=== PATIENT | female | born 1955 | race Caucasian/White ===

== ENCOUNTER → 2016-09-28 | Outpatient (CLI) | payer OTHER ==
--- NOTE | 2016-09-29 10:23 | MM ---
Reason for exam: screening (asymptomatic). Last mammogram was performed 1 year and 1 month ago. Physical Findings: A clinical breast exam by your physician is recommended on an annual basis and results should be correlated with mammographic findings. MG Screening Mammo w CAD Bilateral CC and MLO view(s) were taken. Prior study comparison: September 09, 2015, bilateral MG screening mammo w CAD. August 04, 2014, bilateral MG screening mammo w CAD. There are scattered fibroglandular densities. No suspicious abnormality. No significant changes when compared with prior studies. ASSESSMENT: Negative, BI-RAD 1 RECOMMENDATION: Routine screening mammogram of both breasts in 1 year.
== END | disposition home or self-care (01) ==
LOC: RADMAMWWP 15:34
PROVIDERS: ATTEND Internal Medicine
DX: Z12.31 Encounter for screening mammogram for malignant neoplasm of breast (principal)

== ENCOUNTER → 2016-11-28 | Outpatient (CLI) | payer OTHER ==
--- NOTE | 2016-11-29 12:25 | P.ARTDOP ---
Arterial Doppler LOWER EXTREMITY ARTERIAL DOPPLER: DATE OF SERVICE: 11/28/2016 Reason for study: Bilateral calf claudication. Doppler waveforms: Multiphasic bilaterally throughout. Pulse volume recording: []. Pressure gradients: None. Ankle-brachial indices: Greater than 1 bilaterally. Toe pressures: 122 on the right, 124 on the left Impression: Normal study.
== END | disposition home or self-care (01) ==
LOC: RADUSWWP 08:48
PROVIDERS: ATTEND Internal Medicine
DX: I73.9 Peripheral vascular disease, unspecified (principal)
CPT/HCPCS: 93922

== ENCOUNTER → 2017-06-19 | Outpatient (CLI) | payer OTHER ==
--- NOTE | 2017-06-19 17:04 | CONS ---
CONSULTATION REASON FOR EVALUATION: Sleep apnea. 62-year-old female patient with known history of obstructive sleep apnea diagnosed back in 2013. At that time, the patient had an AHI of 52 and the patient was being treated with a CPAP pressure of 9 cm of water with excellent clinical response and compliance. Note that the patient was morbidly obese and she weighed approximately 342 pounds and over the years she has been successfully able to lose weight. Currently she is down to 219. Over the past 1-1/2 years the patient has quit using her CPAP thinking that she was much better and her symptoms of sleep apnea had improved. Never the less, no confirmatory sleep study was done to see if there is any residual obstructive sleep apnea. Recently during a trip to [place] the patient a hypoglycemic event, she was taken to the hospital and while being observed at sleep the patient was told to have oxygen desaturation. She is coming in due to concerns of a residual obstructive sleep apnea. She continues to snore and she feels tired although less compared to earlier. She is averaging around 5-6 hours of sleep at night. At times she is restless and she has chronic weakness in lower extremity related to spinal stenosis and footdrop. PAST MEDICAL HISTORY: 1. ROBIN. 2. Obesity. 3. Hypertension. 4. Hyperlipidemia. 5. Spinal stenosis. 6. History of foot drop. 7. Glaucoma. 8. Diabetes mellitus. 9. Obesity. SURGICAL HISTORY: Includes 1983, cholecystectomy 1989, hysterectomy 1990, sinus surgery in 1999 and hernia repair in 2010. DRUG ALLERGIES: To SULFA, BETA-BLOCKERS, METFORMIN AND BYETTA. She is also allergic to VICTOZA AND U500 INSULIN. OUTPATIENT MEDICATION LIST: Includes vitamin D 6000 units daily, Humalog 3 times a day 24 units, Lantus insulin 45 units daily, baby aspirin 81 mg p.o. daily, Norvasc 5 mg p.o. daily, Lipitor 80 mg p.o. daily, Cymbalta 120 mg p.o. daily and Xalatan eye drops. SOCIAL HISTORY: The patient is a nonsmoker. No history of alcohol. No history of IV drugs. FAMILY HISTORY: Noncontributory and is negative for sleep apnea. REVIEW OF SYSTEMS: She is reporting some excessive fatigue and sleepiness. She is still snoring as she was told to snore. She wakes up tired in the morning. She is having some problems with attention, memory and concentration. 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 No sleep paralysis. No hallucinations. No cataplexy. No report palpitation, heartburn. No reported chest pain at nighttime. No report of shortness of breath. No sleep walking or sleep talking. No claustrophobia, no sexual dysfunction. No history of depression. PHYSICAL EXAMINATION: BP is 147/77, pulse 96, respirations 16, temperature 97, saturation 98% on room air. Weight is 219, height is 5 feet 2 inches and neck size 15 inches. GENERAL APPEARANCE: Calm, comfortable. No acute distress. Head is atraumatic, normocephalic. Neck is short. Crowding of the posterior pharynx. Mallampati class IV. LUNGS: Clear to auscultation. HEART: Sounds are regular rate and rhythm. Normal S1, S2. No S3. No murmurs. ABDOMEN: Soft, nontender. No organomegaly. EXTREMITIES: No edema. No cyanosis or clubbing. NEUROLOGIC: The patient has weakness in lower extremities and difficult with mobility and gait and foot drop. SKIN: Negative for wounds or ulceration. IMPRESSION: 1. Obstructive sleep apnea with an AHI of 52 back in 2013. The patient was treated with CPAP with a pressure of 9. The patient has lost more than 100 pounds and she is coming in for re-evaluation. At this point in time, she has some residual snoring and hypersomnia and fatigue and I do suspect that there is some residual obstructive sleep apnea despite her weight loss. Her current [place] score 13. 2. Hypersomnia, [place] score of 15. 3. Chronic fatigue. 4. Obesity with a BMI of 40. 5. Hypertension. 6. Hyperlipidemia. 7. Spinal stenosis. 8. Foot drop. 9. Diabetes mellitus. 10.Glaucoma. PLAN: 1. Encourage further weight loss. 2. Proceed with a home sleep study to assess for any residual obstructive sleep apnea that may warrant further treatment. Note that the patient was recently hospitalized in [place] for issues related to hypoglycemia and she was noted to stop breathing and drop her oxygen and desaturate at night time. This is something to follow and home sleep study should be able to tell us if there is any residual sleep apnea that warrants further investigation and treatment. We will continue to follow. MMODL / IJN: [id number] /
== END | disposition home or self-care (01) ==
LOC: SLEEP 11:48
PROVIDERS: ATTEND Internal Medicine Critical Care Medicine
DX: G47.33 Obstructive sleep apnea (adult) (pediatric) (principal); E66.01 Morbid (severe) obesity due to excess calories; I10 Essential (primary) hypertension; R53.83 Other fatigue; E78.5 Hyperlipidemia, unspecified; M48.00 Spinal stenosis, site unspecified; M21.379 Foot drop, unspecified foot; E11.9 Type 2 diabetes mellitus without complications; H40.9 Unspecified glaucoma; Z90.49 Acquired absence of other specified parts of digestive tract; Z68.41 Body mass index [BMI] 40.0-44.9, adult; Z98.890 Other specified postprocedural states; Z88.2 Allergy status to sulfonamides; Z88.8 Allergy status to other drugs, medicaments and biological substances; Z99.89 Dependence on other enabling machines and devices; Z79.84 Long term (current) use of oral hypoglycemic drugs; Z79.82 Long term (current) use of aspirin; Z79.4 Long term (current) use of insulin; Z79.899 Other long term (current) drug therapy
CPT/HCPCS: 99211

== ENCOUNTER 2017-07-18 17:14 | Emergency (ER) | payer OTHER ==
[2017-07-18] MEDS ORDERED: LORazepam 2 MG/ML INJ IV STA (17:25)
[2017-07-18 17:29] VITALS: BP 133/70; PULSE 109; RESP 18; TEMP 98.4
--- NOTE | 2017-07-18 17:29 | ED ---
General Adult HPI - General Stated complaint: Anxiety Time Seen by Provider: 07/18/17 17:15 Source: RN notes reviewed - History of Present Illness Initial comments: This is a 62-year-old female with past medical history significant for diabetes hypertension and panic attacks. Patient comes in today stating that she felt extremely shaky while at the [facility]. Patient states she thought maybe her sugar was low. So she sat down but the shakiness continued throughout her whole body. Patient denies any near syncopal episode. Patient states she felt a little dizzy but no near syncopal episode. Patient denies any chest pain or palpitations. Patient denies any difficulty breathing first breath. Patient denies any recent fever chills or cough. Patient states she ate approximately an hour prior to the episode. Patient denies any abdominal pain patient denies nausea vomiting fever. Patient states her symptoms are much improved at this point but she still has a shakiness inside of her. Patient states she has had these symptoms in the past. - Related Data Home Medications Medication Instructions Recorded Confirmed Aspirin 81 mg PO DAILY 01/07/14 07/18/17 DULoxetine HCL [Cymbalta] 120 mg PO HS 01/07/14 07/18/17 Insulin Glargine,Hum.rec.anlog 45 unit SQ HS 01/07/14 07/18/17 [Lantus Solostar] Latanoprost Ophth [Xalatan 0.005%] 1 drop BOTH EYES HS 01/07/14 07/18/17 amLODIPine [Norvasc] 5 mg PO DAILY 01/07/14 07/18/17 Albuterol Inhaler [Ventolin Hfa 1 - 2 puff INHALATION RT-Q6H PRN 07/18/17 Inhaler] Atorvastatin [Lipitor] 80 mg PO HS 07/18/17 07/18/17 Ergocalciferol (Vitamin D2) 50,000 unit PO Q7D 07/18/17 07/18/17 [Vitamin D2] Insulin Lispro [humaLOG Kwikpen] 20 unit SQ AC-SUPPER 07/18/17 07/18/17 Insulin Lispro [humaLOG Kwikpen] 24 unit SQ BID 07/18/17 07/18/17 Insulin Lispro [humaLOG Kwikpen] See Protocol SQ TID PRN 07/18/17 07/18/17 Ipratropium-Albuterol Nebulize 3 ml INHALATION RT-QID PRN 07/18/17 07/18/17 [Duoneb 0.5 mg-3 mg/3 ml Soln] Previous Rx's Medication Instructions Recorded Sodium Chloride [[place]] 1 spray EA NOSTRIL DAILY #1 bottle 01/07/15 Allergies Allergy/AdvReac Type Severity Reaction Status Date / Time metformin Allergy Nausea & Verified 07/18/17 17:29 Vomiting metoprolol Allergy Cough Verified 07/18/17 17:29 Sulfa (Sulfonamide Allergy Rash/Hives Verified 07/18/17 17:29 Antibiotics) Beta-Blockers AdvReac coughing Verified 07/18/17 17:29 (Beta-Adrenergic Bloc exenatide [From Byetta] AdvReac Nausea & Verified 07/18/17 17:29 Vomiting liraglutide [From Victoza] AdvReac Nausea & Verified 07/18/17 17:29 Vomiting tape Allergy Rash/Hives Uncoded 07/18/17 17:29 Review of Systems ROS Statement: Those systems with pertinent positive or pertinent negative responses have been documented in the HPI. ROS Other: All systems not noted in ROS Statement are negative. Past Medical History Past Medical History: Diabetes Mellitus, Hyperlipidemia, Hypertension Additional Past Medical History / Comment(s): CAD History of Any Multi-Drug Resistant Organisms: ESBL Date of last positivie culture/infection: 03/04/15 MDRO Source:: [facility]ESBL E.[facility] Past Surgical History: Section, Cholecystectomy, Hernia Repair, Hysterectomy Additional Past Surgical History / Comment(s): sinus surgery, Past Psychological History: No Psychological Hx Reported Smoking Status: Never smoker Past Alcohol Use History: None Reported Past Drug Use History: None Reported General Exam - General Exam Comments Initial Comments: GENERAL: Patient is well-developed and well-nourished. Patient is nontoxic and well- hydrated and is in mild distress. ENT: Neck is soft and supple. No significant lymphadenopathy is noted. Oropharynx is clear. Moist mucous membranes. Neck has full range of motion without eliciting any pain. EYES: The sclera were anicteric and conjunctiva were pink and moist. Extraocular movements were intact and pupils were equal round and reactive to light. Eyelids were unremarkable. PULMONARY: Unlabored respirations. Good breath sounds bilaterally. No audible rales rhonchi or wheezing was noted. CARDIOVASCULAR: There is a regular rate and rhythm without any murmurs gallops or rubs. ABDOMEN: Soft and nontender with normal bowel sounds. SKIN: Skin is clear with no lesions or rashes and otherwise unremarkable. NEUROLOGIC: Patient is alert and oriented x3. Cranial nerves II through XII are grossly intact. Motor and sensory are also intact. Normal speech, volume and content. Symmetrical smile. MUSCULOSKELETAL: Normal extremities with adequate strength and full range of motion. LYMPHATICS: No significant lymphadenopathy is noted PSYCHIATRIC: Normal psychiatric evaluation. Course Vital Signs 07/18/17 17:27 Temperature 98.4 F Pulse Rate 109 H Respiratory 18 Rate Blood Pressure 133/70 O2 Sat by Pulse 99 Oximetry Medical Decision Making - Medical Decision Making EKG shows sinus tachycardia 102 bpm [place] interval is 134 QRS 92 QT interval 368 QTC is 479. Patient's EKG shows no ST segment elevation no ST segment depression there are no extrasystoles. I went back into the room to reevaluate the patient patient stated all of her symptoms have resolved after she received the Ativan. Patient was pretty confident this was another one of her panic attacks. I was in agreement I discharge the patient home. - Lab Data Result diagrams: 07/18/17 17:32 07/18/17 17:32 Lab Results 07/18/17 07/18/17 07/18/17 Range/Units 17:32 17:32 17:40 WBC 9.0 (3.8-10.6) k/uL RBC 4.22 (3.80-5.40) m/uL Hgb 12.0 (11.4-16.0) gm/dL Hct 35.1 (34.0-46.0) % MCV 83.3 (80.0-100.0) fL MCH 28.4 (25.0-35.0) pg MCHC 34.1 (31.0-37.0) g/dL RDW 13.3 (11.5-15.5) % Plt Count 287 (150-450) k/uL Neutrophils % 62 % Lymphocytes % 29 % Monocytes % 5 % Eosinophils % 2 % Basophils % 1 % Neutrophils # 5.6 (1.3-7.7) k/uL Lymphocytes # 2.6 (1.0-4.8) k/uL Monocytes # 0.4 (0-1.0) k/uL Eosinophils # 0.2 (0-0.7) k/uL Basophils # 0.1 (0-0.2) k/uL Sodium 140 (137-145) mmol/L Potassium 4.1 (3.5-5.1) mmol/L Chloride 103 (98-107) mmol/L Carbon Dioxide 24 (22-30) mmol/L Anion Gap 13 mmol/L BUN 24 H (7-17) mg/dL Creatinine 0.88 (0.52-1.04) mg/dL Est GFR (CKD-EPI)AfAm 82 (>60 ml/min/1.73 sqM) Est GFR (CKD-EPI)NonAf 71 (>60 ml/min/1.73 sqM) Glucose 261 H (74-99) mg/dL POC Glucose (mg/dL) 275 H (75-99) mg/dL POC Glu Communication Manager ID Eunice Ohara Calcium 9.5 (8.4-10.2) mg/dL Total Bilirubin 0.4 (0.2-1.3) mg/dL AST 24 (14-36) U/L ALT 33 (9-52) U/L Alkaline Phosphatase 99 (38-126) U/L Total Protein 6.7 (6.3-8.2) g/dL Albumin 3.9 (3.5-5.0) g/dL Disposition Clinical Impression: Anxiety Disposition: HOME SELF-CARE Condition: Good Instructions: Anxiety (ED) Is patient prescribed a controlled substance at d/c from ED?: No Referrals: Liang Crowley MD [Primary Care Provider] - 1-2 days Time of Disposition: 18:09
[2017-07-18 17:42] LABS: Glucose,Whole Blood 275 mg/dL (75-99)
[2017-07-18 17:49] LABS: Basophils # (A) 0.1 k/uL (0-0.2); Basophils % (A) 1 %; Eosinophils # (A) 0.2 k/uL (0-0.7); Eosinophils % (A) 2 %; HCT 35.1 % (34.0-46.0); Lymphocytes # (A) 2.6 k/uL (1.0-4.8); Lymphocytes % (A) 29 %; MCH 28.4 pg (25.0-35.0); MCHC 34.1 g/dL (31.0-37.0); MCV 83.3 fL (80.0-100.0); Mean Platelet Volume 7.2; Monocytes # (A) 0.4 k/uL (0-1.0); Monocytes % (A) 5 %; Neutrophils # (A) 5.6 k/uL (1.3-7.7); Neutrophils % (A) 62 %; Platelet Count 287 k/uL (150-450); RBC 4.22 m/uL (3.80-5.40); RDW 13.3 % (11.5-15.5)
[2017-07-18 17:56] LABS: Albumin 3.9 g/dL (3.5-5.0); Calcium 9.5 mg/dL (8.4-10.2); Potassium 4.1 mmol/L (3.5-5.1); Total Bilirubin 0.4 mg/dL (0.2-1.3); Total Protein 6.7 g/dL (6.3-8.2)
== END 2017-07-18 18:41 | disposition home or self-care (01) ==
LOC: EC 17:14
DX: F41.9 Anxiety disorder, unspecified (principal); R42 Dizziness and giddiness; R00.0 Tachycardia, unspecified; E11.9 Type 2 diabetes mellitus without complications; E78.5 Hyperlipidemia, unspecified; I10 Essential (primary) hypertension; I25.10 Atherosclerotic heart disease of native coronary artery without angina pectoris; Z79.4 Long term (current) use of insulin; Z79.82 Long term (current) use of aspirin; Z79.899 Other long term (current) drug therapy; Z91.048 Other nonmedicinal substance allergy status; Z88.8 Allergy status to other drugs, medicaments and biological substances; Z88.2 Allergy status to sulfonamides
CPT/HCPCS: 36415; 93005; 80053; 85025; 99283; 96374; J2060

== ENCOUNTER 2017-08-24 14:57 | Emergency (ER) | payer OTHER ==
--- NOTE | 2017-08-24 16:12 | ED ---
General Adult HPI - General Chief complaint: Neuro Symptoms/Deficit Stated complaint: Vision changes,IBRAHIM Time Seen by Provider: 08/24/17 15:57 Source: patient Mode of arrival: ambulatory Limitations: no limitations - History of Present Illness Initial comments: Janie is a 62-year-old female with very poorly controlled diabetes who presents to the emergency department today for evaluation of 2 days of double vision. Patient reports that yesterday she noted that when she was driving to her chiropractor appointment she could see for stoplights next to each other instead of 2. She went to her chiropractor and had a adjustment, she is uncertain if her neck was manipulated. She reports that that she went home and called her metal box maker made an appointment for today. She reports that if she focuses very closely that she does not have double vision. However when she looks at objects which are far from her she seems to have double vision which the 2 objects are next to each other. She reports she feels like her left eye is her dominant I and her right eye is causing her to see a shadow like copy of the object she is looking at. Patient was evaluated by optometry today because her metal box maker was unavailable until next week. She had a complete eye exam and was advised that she has some retinal abnormalities which her asset manager said could be related to the recent significant changes in her diabetes control. Janie does admit that previously her A1c was 17 and is now down to 12, she reports that her doctor is working aggressively to get her diabetes under control so that she can undergo a neurologic surgery to repair her spinal stenosis in her lumbar spine. She was advised by optometry that they need to add a prism to her lens in her left eye. They advised her she could contact her neurologist to further discuss her symptoms otherwise she can be evaluated by ophthalmology on Sunday as scheduled. The patient contacted her neurologist Dr. Ley from [place] who advised her to seek care in an emergency department for further evaluation. Patient denies any headache, hearing loss, difficulty with speech, any facial paralysis, she denies any numbness or weakness in one arm or leg, any difficulty with walking or coordination. She reports that she is otherwise in her usual state of health. Today she had her friend drive her around because she didn't feel it was safe for her to drive having vision changes but other than that she has felt well. She reports that after her doctor's appointment earlier for and went out to lunch her friend did note that she seemed to have to close one eye to focus but otherwise seems quite well. Patient does also note that she has a history of sinusitis in the past, she was recently diagnosed with sleep apnea and started using a CPAP machine on Sunday. She reports that after using it for tonight she did feel that the pressure in her sinuses was worse and she did contact the company to decrease the pressures. She is uncertain if this contributes to her symptoms today. - Related Data Home Medications Medication Instructions Recorded Confirmed Aspirin 81 mg PO DAILY 01/07/14 08/24/17 DULoxetine HCL [Cymbalta] 120 mg PO HS 01/07/14 08/24/17 Insulin Glargine,Hum.rec.anlog 45 unit SQ HS 01/07/14 08/24/17 [Lantus Solostar] Latanoprost Ophth [Xalatan 0.005%] 1 drop BOTH EYES HS 01/07/14 08/24/17 amLODIPine [Norvasc] 5 mg PO DAILY 01/07/14 08/24/17 Albuterol Inhaler [Ventolin Hfa 1 - 2 puff INHALATION RT-Q6H PRN 07/18/17 Inhaler] Atorvastatin [Lipitor] 80 mg PO HS 07/18/17 08/24/17 Ergocalciferol (Vitamin D2) 50,000 unit PO FR 07/18/17 08/24/17 [Vitamin D2] Insulin Lispro [humaLOG Kwikpen] 20 unit SQ AC-BID 07/18/17 08/24/17 Insulin Lispro [humaLOG Kwikpen] 34 unit SQ AC-BRKFST 07/18/17 08/24/17 Insulin Lispro [humaLOG Kwikpen] See Protocol SQ TID PRN 07/18/17 08/24/17 Ipratropium-Albuterol Nebulize 3 ml INHALATION RT-QID PRN 07/18/17 08/24/17 [Duoneb 0.5 mg-3 mg/3 ml Soln] Sodium Chloride [[place]] 1 spray EA NOSTRIL DAILY PRN 08/24/17 08/24/17 Allergies Allergy/AdvReac Type Severity Reaction Status Date / Time metformin Allergy Nausea & Verified 08/24/17 16:15 Vomiting metoprolol Allergy Cough Verified 08/24/17 16:15 Sulfa (Sulfonamide Allergy Rash/Hives Verified 08/24/17 16:15 Antibiotics) Beta-Blockers AdvReac coughing Verified 08/24/17 16:15 (Beta-Adrenergic Bloc exenatide [From [place]] AdvReac Nausea & Verified 08/24/17 16:15 Vomiting liraglutide [From Victoza] AdvReac Nausea & Verified 08/24/17 16:15 Vomiting tape Allergy Rash/Hives Uncoded 08/24/17 15:21 Review of Systems ROS Statement: Those systems with pertinent positive or pertinent negative responses have been documented in the HPI. ROS Other: All systems not noted in ROS Statement are negative. Constitutional: Reports: chills. Denies: fever Eyes: Reports: vision change. Denies: eye discharge ENT: Denies: dental pain, hearing loss Respiratory: Denies: cough, dyspnea Cardiovascular: Denies: chest pain, palpitations Endocrine: Denies: fatigue Gastrointestinal: Denies: abdominal pain, nausea, vomiting Musculoskeletal: Reports: back pain (Chronic, unchanged) Skin: Denies: rash, lesions Neurological: Reports: headache. Denies: confusion Psychiatric: Denies: anxiety, depression Hematological/Lymphatic: Denies: easy bleeding, easy bruising Past Medical History Past Medical History: Diabetes Mellitus, Hyperlipidemia, Hypertension, Sleep Apnea/CPAP/BIPAP Additional Past Medical History / Comment(s): CAD, spinal stenosis History of Any Multi-Drug Resistant Organisms: ESBL Date of last positivie culture/infection: 03/04/15 MDRO Source:: [facility]-ESBL E.coli Past Surgical History: Section, Cholecystectomy, Hernia Repair, Hysterectomy Additional Past Surgical History / Comment(s): sinus surgery, Past Psychological History: No Psychological Hx Reported Smoking Status: Never smoker Past Alcohol Use History: None Reported Past Drug Use History: None Reported General Exam Limitations: no limitations General appearance: alert, in no apparent distress Head exam: Present: atraumatic, normocephalic Eye exam: Present: normal appearance, PERRL, EOMI. Absent: scleral icterus, conjunctival injection, nystagmus, periorbital swelling, periorbital tenderness ENT exam: Present: normal exam Neck exam: Present: normal inspection, full ROM Respiratory exam: Absent: respiratory distress Cardiovascular Exam: Present: regular rate, normal rhythm GI/Abdominal exam: Present: soft. Absent: distended Rectal exam: Present: deferred Extremities exam: Present: normal inspection Back exam: Present: normal inspection Neurological exam: Present: alert, oriented X3, CN II-XII intact, normal gait Psychiatric exam: Present: normal affect, normal mood Skin exam: Present: warm, dry Course Vital Signs 08/24/17 08/24/17 08/24/17 15:17 18:27 19:35 Temperature 98.5 F Pulse Rate 93 84 85 Respiratory 18 16 18 Rate Blood Pressure 140/80 150/74 117/71 O2 Sat by Pulse 100 96 98 Oximetry 08/24/17 20:40 Temperature 98.3 F Pulse Rate Respiratory Rate Blood Pressure O2 Sat by Pulse Oximetry EKG Findings - EKG Comments: EKG Findings:: EKG performed at 1839 - rate is 83, rhythm is sinus, there is a 40 axis, normal intervals, WA is 134, QRS is 90, QTC is 451, there are no acute ST elevations or depressions. No evidence of acute ischemia or infarction. Medical Decision Making - Medical Decision Making The patient was seen and evaluated, history was obtained from the patient Patient with 36 hours of subjective, horizontal double vision when looking at distant objects, double vision resolves when she focuses on close objects or looks with only one I She was evaluated by optometry today and advised that she does need a changed her prescriptions to add a prism to her lens to improve her vision Patient is scheduled to follow-up with ophthalmology on Sunday Patient and was advised by her neurologist who she sees for her chronic neuropathy to seek care in the ER Labs and CT imaging were ordered Due to the fact that the patient had a chiropractic appointment with possible manipulation yesterday I will obtain a CT angiography of the neck and brain Patient's NIH score is 0, she has no focal neurologic deficits, she has a normal gait, normal strength in her extremities Labs were unremarkable CT and CT angiography of the head were unremarkable Multiple pages were placed to Dr. Ley's office I spoke with Dr. Ley's partner who states that he not distribution lineman and he will contact Dr. Ley to discuss the patient care with me Patient care was discussed with Dr. Ley who agrees that the patient has undergone a thorough evaluation and that there is no indication for further treatment here in the ER. He recommends discharge home, patient is to contact him on Sunday for follow-up. An was discussed with patient who expresses relief at the negative findings and the ability to go home. All questions pertaining care were answered best my ability patient was discharged home in stable condition. Stressed the importance to the patient to return to the ER if she has any acute worsening or change in her condition or develops any weakness, numbness, tingling or any new or concerning symptoms. Patient exposed understanding and agreement with this. - Lab Data Result diagrams: 08/24/17 16:33 08/24/17 16:33 Lab Results 08/24/17 08/24/17 Range/Units 16:33 16:33 WBC 10.0 (3.8-10.6) k/uL RBC 4.45 (3.80-5.40) m/uL Hgb 12.7 (11.4-16.0) gm/dL Hct 37.4 (34.0-46.0) % MCV 84.1 (80.0-100.0) fL MCH 28.6 (25.0-35.0) pg MCHC 34.0 (31.0-37.0) g/dL RDW 13.6 (11.5-15.5) % Plt Count 349 (150-450) k/uL Neutrophils % 59 % Lymphocytes % 32 % Monocytes % 4 % Eosinophils % 2 % Basophils % 1 % Neutrophils # 5.9 (1.3-7.7) k/uL Lymphocytes # 3.2 (1.0-4.8) k/uL Monocytes # 0.4 (0-1.0) k/uL Eosinophils # 0.2 (0-0.7) k/uL Basophils # 0.1 (0-0.2) k/uL Sodium 136 L (137-145) mmol/L Potassium 4.8 (3.5-5.1) mmol/L Chloride 98 (98-107) mmol/L Carbon Dioxide 31 H (22-30) mmol/L Anion Gap 7 mmol/L BUN 23 H (7-17) mg/dL Creatinine 0.89 (0.52-1.04) mg/dL Est GFR (CKD-EPI)AfAm 80 (>60 ml/min/1.73 sqM) Est GFR (CKD-EPI)NonAf 70 (>60 ml/min/1.73 sqM) Glucose 135 H (74-99) mg/dL Calcium 9.8 (8.4-10.2) mg/dL Total Bilirubin 0.4 (0.2-1.3) mg/dL AST 21 (14-36) U/L ALT 33 (9-52) U/L Alkaline Phosphatase 102 (38-126) U/L Total Protein 7.1 (6.3-8.2) g/dL Albumin 4.3 (3.5-5.0) g/dL Disposition Clinical Impression: Change in vision Disposition: HOME SELF-CARE Condition: Good Is patient prescribed a controlled substance at d/c from ED?: No Referrals: Liang Crowley MD [Primary Care Provider] - 1-2 days Marquez Posey MD [REFERRING] - 1-2 days Time of Disposition: 20:23
[2017-08-24 17:15] LABS: Albumin 4.3 g/dL (3.5-5.0); Calcium 9.8 mg/dL (8.4-10.2); Potassium 4.8 mmol/L (3.5-5.1); Total Bilirubin 0.4 mg/dL (0.2-1.3); Total Protein 7.1 g/dL (6.3-8.2)
[2017-08-24 17:23] LABS: Basophils # (A) 0.1 k/uL (0-0.2); Basophils % (A) 1 %; Eosinophils # (A) 0.2 k/uL (0-0.7); Eosinophils % (A) 2 %; HCT 37.4 % (34.0-46.0); HGB 12.7 gm/dL (11.4-16.0); Lymphocytes # (A) 3.2 k/uL (1.0-4.8); Lymphocytes % (A) 32 %; MCH 28.6 pg (25.0-35.0); MCV 84.1 fL (80.0-100.0); Monocytes # (A) 0.4 k/uL (0-1.0); Monocytes % (A) 4 %; Neutrophils # (A) 5.9 k/uL (1.3-7.7); Neutrophils % (A) 59 %; Platelet Count 349 k/uL (150-450); RBC 4.45 m/uL (3.80-5.40); RDW 13.6 % (11.5-15.5)
--- NOTE | 2017-08-24 18:25 | CT ---
EXAMINATION TYPE: CT angio head neck DATE OF EXAM: 08/24/2017 HISTORY: Double vision and headache x2 days. COMPARISON: None CT DLP: 365.9 mGycm. Automated Exposure Control for Dose Reduction was Utilized. TECHNIQUE: CTA scan of the neck is performed with IV Contrast, patient injected with 65ml mL of Isov ue 370, axial images are obtained, coronal and sagittal reformatted images are reviewed. Three-D ana nstructed images are created on an independent workstation and reviewed. FINDINGS: There is normal branching pattern of the great vessels on the aortic arch with mild atherosclerotic c hanges. There is patency of the great vessels. There is bilateral arterial flow in the vertebral joseph vinny. There is arterial flow in the common internal and external carotid arteries bilaterally. There is no evidence of carotid artery aneurysm or dissection. There is minimal plaque at the carotid arter y bifurcations. This is less than 10%. There is arterial flow in the vertebrobasilar artery system. Basilar artery fills from both vertebral arteries. There is arterial flow in the anterior middle and posterior cerebral arteries. There is no mass effec t. I see no aneurysm or neovascularity. There is no evidence of stenosis. There is normal contrast op acification of the venous sinuses. Proximal left anterior cerebral artery is smaller than the right a nd this is probably normal variation. IMPRESSION: Negative CT angiogram of the neck. Negative CT angiogram of the brain.
--- NOTE | 2017-08-24 18:26 | CT ---
EXAMINATION TYPE: CT brain wo con DATE OF EXAM: 08/24/2017 COMPARISON: None HISTORY: Double vision and headache x2 days. CT DLP: 990.3 mGycm Automated exposure control for dose reduction was used. FINDINGS: Ventricles and sulci appear normal. There is no mass effect nor midline shift. There is no sign of in tracranial hemorrhage. Calvarium is intact. IMPRESSION: NEGATIVE CT SCAN OF THE BRAIN.
[2017-08-24 19:36] VITALS: BP 117/71; PULSE 85; RESP 18
[2017-08-24 20:41] VITALS: TEMP 98.3
== END 2017-08-24 20:40 | disposition home or self-care (01) ==
LOC: EC 14:57
DX: H53.8 Other visual disturbances (principal); G47.30 Sleep apnea, unspecified; Z99.89 Dependence on other enabling machines and devices; E11.9 Type 2 diabetes mellitus without complications; E78.5 Hyperlipidemia, unspecified; I10 Essential (primary) hypertension; I25.10 Atherosclerotic heart disease of native coronary artery without angina pectoris; Z79.4 Long term (current) use of insulin; Z79.82 Long term (current) use of aspirin; Z79.899 Other long term (current) drug therapy; Z88.2 Allergy status to sulfonamides; Z88.8 Allergy status to other drugs, medicaments and biological substances; Z91.048 Other nonmedicinal substance allergy status
CPT/HCPCS: 99284 ×2; 36415; 93005; 80053; 85025; 70496; 70450; 70498; Q9967

== ENCOUNTER → 2018-05-27 | Outpatient (CLI) | payer OTHER ==
[~2018-05-27] MED LIST: REGADENOSON 0.4 MG/5 ML SYRINGE IV ONE
--- NOTE | 2018-05-27 13:43 | EST ---
EXERCISE STRESS DATE OF SERVICE: 05/27/2018 AGE: 63 SEX: Female HT: 5'2" WT: 234 pounds PROTOCOL: Lexiscan Cardiolite STAGE: DURATION OF EXERCISE: HEART RATE REST: 88 BLOOD PRESSURE REST: 175/97 MAXIMUM HEART RATE ACHIEVED: 91 MAXIMUM BLOOD PRESSURE: 147/78 85% MPHR: 133 100% MPHR: 157 METS: INDICATIONS: Abnormal EKG CLINICAL INFORMATION: Baseline EKG revealed normal sinus rhythm without significant ST-T changes. With Lexiscan administration, heart rate changed from 88 to 91 beats per minute blood pressure changed from 175/90 to 147/78. EKG remained unremarkable. Patient had transient chest tightness and shortness of breath. By EKG criteria, this is an unremarkable Lexiscan stress test with some minor resting EKG changes to begin with. FINAL IMPRESSION: By EKG criteria is unremarkable Lexiscan stress test with minor resting EKG changes. The nuclear scan results which are more pertinent will be reported by the radiologist. MMODL / IJN: [id number] /
--- NOTE | 2018-05-27 16:45 | NM ---
EXAMINATION TYPE: NM stress lexiscan cardiolite DATE OF EXAM: 05/27/2018 COMPARISON: NONE HISTORY: Abnormal EKG TECHNIQUE: After the intravenous administration of 10.17 mCi Tc 99m Sestamibi - Cardiolite resting S PECT images acquired 45 minutes post injection. The patient received 0.4mg Lexiscan, 26 mCi Tc 99m Sestamibi - Stress images obtained 35 minutes post injection FINDINGS: There is a defect along the inferior wall extending towards the apex. Hazy apex is extends into the i nferolateral wall. This defect is larger on the stress images than on the resting images. Wall motion appears normal. Ejection fraction of 57% is normal polar maps match the SPECT imaging. IMPRESSION: 1. Prior infarct along the inferior wall. 2. Stress-induced ischemic change adjacent to the prior infarct. Stress SPECT imaging defect is large r than the resting SPECT defect. A Pierson level critical message alert has been initiated for Liang Crowley MD via the [employer] Critical Results System on 05/27/2018 4:43 PM. This message alert has been sent to Liang Crowley MD via the preferences provided by the clinician for the receipt of Radiology Critical Findings. Message ID [id number].
== END | disposition home or self-care (01) ==
LOC: RADNMMAIN 07:45
PROVIDERS: ATTEND Internal Medicine
DX: I21.19 ST elevation (STEMI) myocardial infarction involving other coronary artery of inferior wall (principal); I24.8 Other forms of acute ischemic heart disease
CPT/HCPCS: 93017; 78452; A9500; J2785

== ENCOUNTER → 2018-06-13 | Day surgery (SDC) | payer OTHER ==
[2018-06-11 09:23] VITALS: BMI 42.7
[~2018-06-13] MED LIST changes: +ALPRAZolam 0.25 MG TAB PO PRN; +ALPRAZolam 0.5 MG TAB PO PRN; +ASPIRIN 325 MG TAB PO STA; +ATORVASTATIN 80 MG TAB PO STA; +HEPARIN SODIUM 1,000 UN/ML (10ML VL) IV ONE; +HEPARIN SODIUM 1,000 UN/ML (10ML VL) ONE; +IOPAMIDOL-370 100ML BTL INJ ONE; +LIDOCAINE 1% INJ 10MG/ML (20 ML MDV) ONE; +LIDOCAINE 1% INJ 10MG/ML (20 ML MDV) SQ ONE; +MIDAZOLAM (PF) 2 MG/2 ML VIAL IV ONE; +NITROGLYCERIN SL TABS 0.4 MG TAB SUBLINGUAL PRN; -REGADENOSON 0.4 MG/5 ML SYRINGE IV ONE; +RX INFO: IV CONTRAST WAS GIVEN 1 EACH MISC MISCELLANE PRN; +SODIUM CHLORIDE 0.9% 1,000 ML IV ONE; +SODIUM CHLORIDE 0.9% 1,000 ML IV SCH; +SODIUM CHLORIDE 0.9% 1,000 ML in EMPTY BAG 1 BAG IV ONE; +VERAPAMIL 2.5 MG/ML 2 ML AMP ONE
[2018-06-13 06:42] LABS: Glucose,Whole Blood 145 mg/dL (75-99)
[2018-06-13 07:01] VITALS: RESP 18; TEMP 98.5
[2018-06-13 07:32] LABS: Calcium 9.7 mg/dL (8.4-10.2); Potassium 4.5 mmol/L (3.5-5.1)
[2018-06-13] MEDS: VERAPAMIL SYRINGE (5 MG/10 ML) INTRAARTER ONE ×2 (07:50→08:06)
[2018-06-13 09:14] VITALS: PULSE 92
[2018-06-13 09:45] VITALS: BP 126/72
--- NOTE | 2018-06-13 09:45 | CC ---
CARDIAC CATHETERIZATION REPORT DATE OF SERVICE: June 13, 2018 PERFORMING PHYSICIAN: Stefan Santoro MD, environmental conservation professor. PROCEDURE PERFORMED: Selective right and left coronary angiogram. INDICATION: This is a pleasant 63-year-old female patient with a past medical history significant for diabetes, hypertension, and dyslipidemia, who was going to undergo noncardiac surgery. She underwent myocardial perfusion imaging stress test and that showed reversible defect consistent with ischemia. Because of that, a heart catheterization was advised. APPROACH: Right radial artery. COMPLICATION: None. LEVEL OF SEDATION: Moderate with sedation length of 20 minutes. PROCEDURE DESCRIPTION: After obtaining an informed consent, the patient was brought to the cardiac laboratory worker. The right radial artery was cannulated using micropuncture technique, the micropuncture wire passed easily then I placed a 5-Khmer sheath in the right radial artery. After that I gave the patient 2 mg of verapamil IA and 10,000 units of heparin IV. We did selective right and left coronary angiogram using JR4 and JL3.5 catheters. Left heart catheterization was not performed. The procedure was completed without any complication. SELECTIVE CORONARY ANGIOGRAM: 1. The right coronary artery is a large caliber vessel and it is a dominant vessel. The RCA is angiographically normal in the proximal, mid and distal portion. Distally bifurcates into PDA and PLV branches both appear to be angiographically normal. 2. The left main is angiographically normal. It bifurcates into left circumflex and left anterior descending artery. 3. The left circumflex is a large caliber vessel and it is a nondominant vessel. The left circumflex appeared to be angiographically normal. 4. The left anterior descending artery: The proximal LAD appeared to be angiographically normal. The mid LAD has mild disease only in the range of 30% to 40%. This is by the bifurcation of the first diagonal branch which seems to be normal. The LAD distally appeared to be normal. CONCLUSION: Mild nonobstructive coronary artery disease involving the mid left anterior descending artery. POSTPROCEDURE MANAGEMENT: 1. Aggressive cholesterol control. 2. Risk factors modifications. 3. Follow up with the patient. MMDIANNL / PURNIMAN: [id number] /
--- NOTE | 2018-06-13 10:03 | LTR ---
June 13, 2018 Re: Janie Kamilah Dear Dr. Crowley: Ms. Janie Triana underwent today a heart catheterization and that revealed mild nonobstructive disease involving the mid left anterior descending artery. I advised aggressive cholesterol control and blood pressure control. I want to thank you for allowing me to participate in her care and please do not hesitate to call if you have any question or concern. Sincerely, MD LENOARDA Palacios / VERITO: [id number] /
== END | disposition home or self-care (01) ==
LOC: CATHCVL 06:07
PROVIDERS: ATTEND Internal Medicine Interventional Cardiology
DX: I25.110 Atherosclerotic heart disease of native coronary artery with unstable angina pectoris (principal); R94.39 Abnormal result of other cardiovascular function study; E11.9 Type 2 diabetes mellitus without complications; I10 Essential (primary) hypertension; E78.5 Hyperlipidemia, unspecified; E78.00 Pure hypercholesterolemia, unspecified; Z79.4 Long term (current) use of insulin; Z82.49 Family history of ischemic heart disease and other diseases of the circulatory system; Z79.82 Long term (current) use of aspirin; Z79.899 Other long term (current) drug therapy; Z88.8 Allergy status to other drugs, medicaments and biological substances
CPT/HCPCS: 93454; 80048; C1769 ×2; C1894; J2001; J1644; Q9967; J2250

== ENCOUNTER 2019-10-27 18:23 | Emergency (ER) | payer MEDICARE, OTHER ==
[2019-10-27 18:30] VITALS: RESP 18; TEMP 98
[2019-10-27] MEDS ORDERED: ONDANSETRON 4 MG/2 ML VIAL IVP STA (19:07)
[2019-10-27] MEDS ORDERED: SODIUM CHLORIDE 0.9% 1,000 ML IV ONE (19:07)
[2019-10-27] MEDS ORDERED: KETOROLAC 15 MG/ML 1 ML VIAL IVP STA (19:08)
--- NOTE | 2019-10-27 19:28 | XR ---
EXAMINATION TYPE: XR chest 2V DATE OF EXAM: 10/27/2019 COMPARISON: 07/28/2008 HISTORY: Chest pain TECHNIQUE: FINDINGS: Heart is normal. Lungs are clear of consolidation. There is mild subsegmental atelectasis l eft midlung. There is no pleural effusion. There is no heart failure. Bony thorax is intact. IMPRESSION: Minimal subsegmental atelectasis in the left midlung appears new compared to old exam. No rmal heart.
[2019-10-27] MEDS ORDERED: IPRATROPIUM-ALBUTEROL 3 ML NEB INHALATION STA (20:04)
[2019-10-27] MEDS ORDERED: methylPREDNISolone SOD SUCCI 125 MG/2 ML VIAL IV STA (20:04)
--- NOTE | 2019-10-27 20:05 | ED ---
Nausea/Vomiting/Diarrhea HPI - General Chief complaint: Nausea/Vomiting/Diarrhea Stated complaint: vomiting, congestion Time Seen by Provider: 10/27/19 18:44 Source: patient, RN notes reviewed, old records reviewed Mode of arrival: ambulatory Limitations: no limitations - History of Present Illness Initial comments: 64-year-old. Presents the ER today for evaluation for cough congestion. She's been treated for upper respiratory congestion with a Medrol Dosepak last week. She states she's noticed this but seeming to feel worse. She states she freq uently gets upper respiratory infection. On her lungs. She does see Dr. Stevens. At this time Patient has no recorded fever. She does also complain of nausea and diarrhea today. No recent antibiotic use. - Related Data Home Medications Medication Instructions Recorded Confirmed Aspirin 81 mg PO DAILY 01/07/14 06/13/18 DULoxetine HCL [Cymbalta] 120 mg PO HS 01/07/14 06/13/18 Latanoprost Ophth [Xalatan 0.005%] 1 drop BOTH EYES HS 01/07/14 06/13/18 amLODIPine [Norvasc] 5 mg PO HS 01/07/14 06/13/18 Albuterol Inhaler (Mhu) [Ventolin 1 - 2 puff INHALATION Q6HR PRN 07/18/17 06/11/18 Hfa Inhaler (Mhu)] Atorvastatin [Lipitor] 80 mg PO HS 07/18/17 06/13/18 Ergocalciferol (Vitamin D2) 50,000 unit PO SA 07/18/17 06/13/18 [Vitamin D2] Ipratropium-Albuterol Nebulize 3 ml INHALATION QID PRN 07/18/17 06/11/18 [Duoneb 0.5 mg-3 mg/3 ml Soln] Fluticasone Nasal [place] [Flonase 1 spray EA NOSTRIL DAILY 06/11/18 06/11/18 Nasal [place]] Insulin Aspart [NovoLOG Flexpen] 12 units SQ W/BRKFST 06/11/18 06/13/18 Insulin Aspart [NovoLOG Flexpen] 12 units SQ W/SUPPER 06/11/18 06/13/18 Insulin Aspart [NovoLOG Flexpen] 18 units SQ W/LUNCH 06/11/18 06/13/18 Insulin Glargine,Hum.rec.anlog 32 unit SQ HS 06/11/18 06/13/18 [Basaglar Kwikpen U-100] Montelukast [Singulair] 10 mg PO HS 06/11/18 06/13/18 Ozempic(Dose Unknown) 1 injection IJ SA 06/11/18 06/13/18 Pioglitazone HCl [Actos] 15 mg PO MOWEFR 06/11/18 06/13/18 Previous Rx's Medication Instructions Recorded Azithromycin [Zithromax Z-pack] 250 mg PO DIRECTED #6 tab 10/27/19 Ondansetron Odt [Zofran Odt] 4 mg PO Q8HR PRN #12 tab 10/27/19 predniSONE 50 mg PO DAILY #5 tablet 10/27/19 Allergies Allergy/AdvReac Type Severity Reaction Status Date / Time ezetimibe [From Zetia] Allergy Diarrhea Verified 10/27/19 18:31 metformin Allergy Nausea & Verified 10/27/19 18:31 Vomiting metoprolol Allergy Cough Verified 10/27/19 18:31 Sulfa (Sulfonamide Allergy Rash/Hives Verified 10/27/19 18:31 Antibiotics) Beta-Blockers AdvReac coughing Verified 10/27/19 18:31 (Beta-Adrenergic Bloc exenatide [From Byetta] AdvReac Nausea & Verified 10/27/19 18:31 Vomiting liraglutide [From Victoza] AdvReac Nausea & Verified 10/27/19 18:31 Vomiting tape Allergy Rash/Hives Uncoded 10/27/19 18:31 Review of Systems ROS Statement: Those systems with pertinent positive or pertinent negative responses have been documented in the HPI. ROS Other: All systems not noted in ROS Statement are negative. Past Medical History Past Medical History: Asthma, Diabetes Mellitus, GERD/Reflux, Hyperlipidemia, Hypertension, Osteoarthritis (OA), Pneumonia Additional Past Medical History / Comment(s): MIGRAINES, spinal stenosis, heart murmer, hx stool incontinence, osteoporosis, on rx for UTI, has marita sensor on rt arm History of Any Multi-Drug Resistant Organisms: ESBL Date of last positivie culture/infection: 03/04/15 MDRO Source:: [place]-ESBL E.coli Past Surgical History: Back Surgery, Section, Cholecystectomy, Hernia Repair, Hysterectomy Additional Past Surgical History / Comment(s): sinus surgery/deviated septum, D&C's, Past Anesthesia/Blood Transfusion Reactions: Family History of Problems w/ Anesthesia Additional Past Anesthesia/Blood Transfusion Reaction / Comment(s): mother -PONV Past Psychological History: No Psychological Hx Reported Smoking Status: Never smoker Past Alcohol Use History: None Reported Past Drug Use History: None Reported - Past Family History Mother Family Medical History: Cancer General Exam - General Exam Comments Initial Comments: 64 -year-old female. Alert and oriented. No distress. Limitations: no limitations General appearance: alert, in no apparent distress Head exam: Present: atraumatic, normocephalic, normal inspection Eye exam: Present: normal appearance, PERRL, EOMI. Absent: scleral icterus, conjunctival injection, periorbital swelling ENT exam: Present: normal exam, mucous membranes moist, TM's normal bilaterally Neck exam: Present: normal inspection. Absent: tenderness, meningismus, lymphadenopathy Respiratory exam: Present: normal lung sounds bilaterally, other ( is some minimal wheezing.). Absent: respiratory distress, wheezes, rales, rhonchi, stridor Cardiovascular Exam: Present: regular rate, normal rhythm, normal heart sounds. Absent: systolic murmur, diastolic murmur, rubs, gallop, clicks GI/Abdominal exam: Present: soft, normal bowel sounds. Absent: distended, tenderness, guarding, rebound, rigid Extremities exam: Present: normal inspection, full ROM, normal capillary refill. Absent: tenderness, pedal edema, joint swelling, calf tenderness Back exam: Present: normal inspection Neurological exam: Present: alert, oriented X3, CN II-XII intact Psychiatric exam: Present: normal affect, normal mood Skin exam: Present: warm, dry, intact, normal color. Absent: rash Course Vital Signs 10/27/19 10/27/19 10/27/19 18:26 20:47 20:53 Temperature 98.0 F Pulse Rate 79 79 80 Respiratory 18 Rate Blood Pressure 185/82 O2 Sat by Pulse 99 Oximetry 10/27/19 10/27/19 21:12 22:35 Temperature 98.0 F Pulse Rate 76 76 Respiratory 18 18 Rate Blood Pressure 183/83 183/83 O2 Sat by Pulse 94 L 94 L Oximetry Medical Decision Making - Medical Decision Making 64-year-old female presents today for evaluation for concern for recent cough congestion as well as some nausea and diarrhea today. She states that she's been treated for an upper respiratory infection with bronchitis with Medrol Dosepak. She presents states she often gets upper respiratory infections that we'll turn into pneumonia. Chest x-ray shows a new left-sided atelectasis. Discusses could be early possible pneumonia. Labs reviewed and unremarkable. Discussed treatment for her With Rocephin and we'll discharge the Patient with azithromycin. Patient was given IV Solu-Medrol as well will increase the steroid to 50 mg of prednisone daily. We'll also discharge the Patient with nausea medicine. I discussed following up with PCP. Discussed return parameters. - Lab Data Result diagrams: 10/27/19 19:37 10/27/19 20:20 Lab Results 10/27/19 10/27/19 Range/Units 19:37 20:20 WBC 10.5 (3.8-10.6) k/uL RBC 4.39 (3.80-5.40) m/uL Hgb 11.9 (11.4-16.0) gm/dL Hct 37.9 (34.0-46.0) % MCV 86.4 (80.0-100.0) fL MCH 27.1 (25.0-35.0) pg MCHC 31.4 (31.0-37.0) g/dL RDW 13.7 (11.5-15.5) % Plt Count 315 (150-450) k/uL Neutrophils % 69 % Lymphocytes % 22 % Monocytes % 4 % Eosinophils % 3 % Basophils % 1 % Neutrophils # 7.3 (1.3-7.7) k/uL Lymphocytes # 2.3 (1.0-4.8) k/uL Monocytes # 0.4 (0-1.0) k/uL Eosinophils # 0.3 (0-0.7) k/uL Basophils # 0.1 (0-0.2) k/uL Sodium 136 L (137-145) mmol/L Potassium 4.4 (3.5-5.1) mmol/L Chloride 104 (98-107) mmol/L Carbon Dioxide 24 (22-30) mmol/L Anion Gap 8 mmol/L BUN 18 H (7-17) mg/dL Creatinine 0.82 (0.52-1.04) mg/dL Est GFR (CKD-EPI)AfAm 88 (>60 ml/min/1.73 sqM) Est GFR (CKD-EPI)NonAf 76 (>60 ml/min/1.73 sqM) Glucose 283 H (74-99) mg/dL Calcium 9.2 (8.4-10.2) mg/dL Total Bilirubin 0.5 (0.2-1.3) mg/dL AST 22 (14-36) U/L ALT 19 (4-34) U/L Alkaline Phosphatase 113 (38-126) U/L Total Protein 7.0 (6.3-8.2) g/dL Albumin 3.9 (3.5-5.0) g/dL Amylase 33 (30-110) U/L Lipase <10 L (23-300) U/L - Radiology Data Radiology results: report reviewed Minimal subsegmental atelectasis in the left midlung appears new compared old exam. Normal heart. Disposition Clinical Impression: Nausea & vomiting, Bronchitis, CAP (community acquired pneumonia) Disposition: HOME SELF-CARE Condition: Good Instructions (If sedation given, give patient instructions): Acute Bronchitis (ED), Acute Nausea and Vomiting (ED) Additional Instructions: Please use medication as discussed. Please follow up with family doctor if symptoms have not improved over the next two days. Please return to the emergency room if your symptoms increase or worsen or for any other concerns. Prescriptions: predniSONE 50 mg PO DAILY #5 tablet Azithromycin [Zithromax Z-pack] 250 mg PO DIRECTED #6 tab Ondansetron Odt [Zofran Odt] 4 mg PO Q8HR PRN #12 tab PRN Reason: Nausea Is patient prescribed a controlled substance at d/c from ED?: No Referrals: Liang Crowley MD [Primary Care Provider] - 1-2 days Time of Disposition: 22:26
[2019-10-27 20:12] LABS: Basophils # (A) 0.1 k/uL (0-0.2); Basophils % (A) 1 %; Eosinophils # (A) 0.3 k/uL (0-0.7); Eosinophils % (A) 3 %; HCT 37.9 % (34.0-46.0); HGB 11.9 gm/dL (11.4-16.0); Lymphocytes # (A) 2.3 k/uL (1.0-4.8); Lymphocytes % (A) 22 %; MCH 27.1 pg (25.0-35.0); MCHC 31.4 g/dL (31.0-37.0); MCV 86.4 fL (80.0-100.0); Mean Platelet Volume 7.7; Monocytes # (A) 0.4 k/uL (0-1.0); Monocytes % (A) 4 %; Neutrophils # (A) 7.3 k/uL (1.3-7.7); Neutrophils % (A) 69 %; Platelet Count 315 k/uL (150-450); RBC 4.39 m/uL (3.80-5.40); RDW 13.7 % (11.5-15.5); WBC 10.5 k/uL (3.8-10.6)
[2019-10-27 20:42] LABS: ALT 19 U/L (4-34); AST 22 U/L (14-36); African American GFR (CKD) 88 (>60 ml/min/1.73 sqM); Albumin 3.9 g/dL (3.5-5.0); Alkaline Phosphatase 113 U/L (38-126); Amylase 33 U/L (30-110); Anion Gap 8 mmol/L; Blood Urea Nitrogen 18 mg/dL (7-17); Calcium 9.2 mg/dL (8.4-10.2); Carbon Dioxide 24 mmol/L (22-30); Chloride 104 mmol/L (98-107); Glucose 283 mg/dL (74-99); Non-African American GFR(CKD) 76 (>60 ml/min/1.73 sqM); Potassium 4.4 mmol/L (3.5-5.1); Sodium 136 mmol/L (137-145); Total Bilirubin 0.5 mg/dL (0.2-1.3)
[2019-10-27 21:16] VITALS: BP 183/83; PULSE 76
[2019-10-27] MEDS ORDERED: cefTRIAXone IN SWFI 1,000 MG/10 ML SYRINGE IVP STA (22:26)
== END 2019-10-27 22:40 | disposition home or self-care (01) ==
LOC: EC 18:23
DX: J18.9 Pneumonia, unspecified organism (principal); J40 Bronchitis, not specified as acute or chronic; J98.11 Atelectasis; R19.7 Diarrhea, unspecified; E11.9 Type 2 diabetes mellitus without complications; K21.9 Gastro-esophageal reflux disease without esophagitis; E78.5 Hyperlipidemia, unspecified; I10 Essential (primary) hypertension; G43.909 Migraine, unspecified, not intractable, without status migrainosus; M81.0 Age-related osteoporosis without current pathological fracture; Z79.4 Long term (current) use of insulin; Z79.51 Long term (current) use of inhaled steroids; Z79.899 Other long term (current) drug therapy; Z79.82 Long term (current) use of aspirin; Z88.8 Allergy status to other drugs, medicaments and biological substances; Z88.2 Allergy status to sulfonamides; Z91.048 Other nonmedicinal substance allergy status; Z87.09 Personal history of other diseases of the respiratory system
CPT/HCPCS: 36415; 94640; 80053; 82150; 83690; 85025; 71046; 99284; 96374; 96375 ×3; 96361 ×3; J2930; J2405; J0696; J1885

== ENCOUNTER 2021-01-06 12:59 | Emergency (ER) | payer MEDICARE ==
--- NOTE | 2021-01-06 14:32 | XR ---
EXAMINATION TYPE: XR chest 2V DATE OF EXAM: 01/06/2021 COMPARISON: 10/27/2019 HISTORY: Shortness of breath TECHNIQUE: Frontal and lateral views of the chest are obtained. FINDINGS: Scattered senescent parenchymal changes noted. Hyperinflation compatible with COPD. No evidence for infiltrate. No evidence for atelectasis. Heart size is stable. Mediastinal structures are stable and grossly unremarkable. No evidence for hilar prominence. Degenerative changes dorsal spine. IMPRESSION: 1. No evidence for acute pulmonary disease.
[2021-01-06] MEDS ORDERED: ACETAMINOPHEN TAB 325 MG TAB PO STA (14:33)
[2021-01-06 14:48] VITALS: RESP 18
--- NOTE | 2021-01-06 15:13 | ED ---
URI HPI - General Chief Complaint: Upper Respiratory Infection Stated Complaint: SOB/Cough Source: patient, RN notes reviewed Mode of arrival: ambulatory Limitations: no limitations - History of Present Illness Initial Comments: Patient is a 65-year-old female that presents to the emergency department with Covid like symptoms for the past several days. She notes that 8 out of 10 female members that were together for the holidays her Covid-positive. She would be denied. Patient notes she does have a cough with some mucus production. Patient was otherwise well-appearing. She denied any chest pain headache nausea vomiting diarrhea constipation fatigue chills. - Related Data Home Medications Medication Instructions Recorded Confirmed Aspirin 81 mg PO DAILY 01/07/14 06/13/18 DULoxetine HCL [Cymbalta] 120 mg PO HS 01/07/14 06/13/18 Latanoprost Ophth [Xalatan 0.005%] 1 drop BOTH EYES HS 01/07/14 06/13/18 amLODIPine [Norvasc] 5 mg PO HS 01/07/14 06/13/18 Albuterol Inhaler (Mhu) [Ventolin 1 - 2 puff INHALATION Q6HR PRN 07/18/17 06/11/18 Hfa Inhaler (Mhu)] Atorvastatin [Lipitor] 80 mg PO HS 07/18/17 06/13/18 Ergocalciferol (Vitamin D2) 50,000 unit PO SA 07/18/17 06/13/18 [Vitamin D2] Ipratropium-Albuterol Nebulize 3 ml INHALATION QID PRN 07/18/17 06/11/18 [Duoneb 0.5 mg-3 mg/3 ml Soln] Fluticasone Nasal [place] [Flonase 1 spray EA NOSTRIL DAILY 06/11/18 06/11/18 Nasal [place]] Insulin Aspart [NovoLOG Flexpen] 12 units SQ W/BRKFST 06/11/18 06/13/18 Insulin Aspart [NovoLOG Flexpen] 12 units SQ W/SUPPER 06/11/18 06/13/18 Insulin Aspart [NovoLOG Flexpen] 18 units SQ W/LUNCH 06/11/18 06/13/18 Insulin Glargine,Hum.rec.anlog 32 unit SQ HS 06/11/18 06/13/18 [Basaglar Kwikpen U-100] Montelukast [Singulair] 10 mg PO HS 06/11/18 06/13/18 Ozempic(Dose Unknown) 1 injection IJ SA 06/11/18 06/13/18 Pioglitazone HCl [Actos] 15 mg PO MOWEFR 06/11/18 06/13/18 Previous Rx's Medication Instructions Recorded Azithromycin [Zithromax Z-pack (6 250 mg PO DIRECTED #6 tab 10/27/19 tabs)] Ondansetron Odt [Zofran Odt] 4 mg PO Q8HR PRN #12 tab 10/27/19 predniSONE 50 mg PO DAILY #5 tablet 10/27/19 Allergies Allergy/AdvReac Type Severity Reaction Status Date / Time ezetimibe [From Zetia] Allergy Diarrhea Verified 01/06/21 13:06 metformin Allergy Nausea & Verified 01/06/21 13:06 Vomiting metoprolol Allergy Cough Verified 01/06/21 13:06 Sulfa (Sulfonamide Allergy Rash/Hives Verified 01/06/21 13:06 Antibiotics) Beta-Blockers AdvReac coughing Verified 01/06/21 13:06 (Beta-Adrenergic Bloc exenatide [From [place]] AdvReac Nausea & Verified 01/06/21 13:06 Vomiting liraglutide [From Victoza] AdvReac Nausea & Verified 01/06/21 13:06 Vomiting pioglitazone [From Actos] AdvReac weight gain Verified 01/06/21 13:06 tape Allergy Rash/Hives Uncoded 01/06/21 13:06 Review of Systems ROS Statement: Those systems with pertinent positive or pertinent negative responses have been documented in the HPI. ROS Other: All systems not noted in ROS Statement are negative. Past Medical History Past Medical History: Asthma, Diabetes Mellitus, GERD/Reflux, Hyperlipidemia, Hypertension, Osteoarthritis (OA), Pneumonia Additional Past Medical History / Comment(s): MIGRAINES, spinal stenosis, heart murmer, hx stool incontinence, osteoporosis, on rx for UTI, has marita sensor on rt arm History of Any Multi-Drug Resistant Organisms: ESBL Date of last positivie culture/infection: 03/04/15 MDRO Source:: [place]-ESBL E.coli Past Surgical History: Back Surgery, Section, Cholecystectomy, Hernia Repair, Hysterectomy Additional Past Surgical History / Comment(s): sinus surgery/deviated septum, D&C's, Past Anesthesia/Blood Transfusion Reactions: Family History of Problems w/ Anesthesia Additional Past Anesthesia/Blood Transfusion Reaction / Comment(s): mother -PONV Past Psychological History: No Psychological Hx Reported Smoking Status: Never smoker Past Alcohol Use History: None Reported Past Drug Use History: None Reported - Past Family History Mother Family Medical History: Cancer General Exam Limitations: no limitations General appearance: alert, in no apparent distress, obese Head exam: Present: atraumatic, normocephalic, normal inspection Eye exam: Present: normal appearance, PERRL, EOMI. Absent: scleral icterus, conjunctival injection, periorbital swelling ENT exam: Present: normal exam, mucous membranes moist Neck exam: Present: normal inspection Respiratory exam: Present: normal lung sounds bilaterally. Absent: respiratory distress, wheezes, rales, rhonchi, stridor Cardiovascular Exam: Present: regular rate, normal rhythm, normal heart sounds. Absent: systolic murmur, diastolic murmur, rubs, gallop, clicks GI/Abdominal exam: Present: soft, normal bowel sounds. Absent: distended, tenderness, guarding, rebound, rigid Extremities exam: Present: normal inspection, full ROM, normal capillary refill. Absent: tenderness, pedal edema, joint swelling, calf tenderness Neurological exam: Present: alert, oriented X3 Psychiatric exam: Present: normal affect, normal mood Skin exam: Present: warm, dry, intact, normal color. Absent: rash Course Vital Signs 01/06/21 01/06/21 13:02 14:44 Temperature 99.8 F H Pulse Rate 84 Respiratory 24 18 Rate Blood Pressure 165/74 O2 Sat by Pulse 95 Oximetry Medical Decision Making - Medical Decision Making 65-year-old female complaining of cold-like symptoms for the past several days. Covid test, chest x-ray, 650 mg of Tylenol ordered. Covid test positive. Patient meets criteria for monoclonal antibody infusion and wishes to undergo infusion. Patient is able discharge home after. Case discussed with Dr. Miller, patient discharge home. - Lab Data Lab Results 01/06/21 Range/Units 13:09 Coronavirus (PCR) Detected A (Not Detectd) - Radiology Data Radiology results: report reviewed, image reviewed Chest x-ray: No acute evidence for pulmonary process. Disposition Clinical Impression: COVID Disposition: HOME SELF-CARE Condition: Stable Instructions (If sedation given, give patient instructions): Coronavirus Disease 2019 (COVID-19) Additional Instructions: Please return to the Emergency Department if symptoms worsen or any other concerns. Follow-up with primary care in 1-2 days. Quarantine per CDC guidelines. Is patient prescribed a controlled substance at d/c from ED?: No Referrals: Liang Crowley MD [Primary Care Provider] - 1-2 days Time of Disposition: 15:13
[2021-01-06] MEDS ORDERED: SOTROVIMAB (EUA) 500 MG in SODIUM CHLORIDE 0.9% 100 ML IVPB ONE (15:15)
[2021-01-06] MEDS ORDERED: SODIUM CHLORIDE 0.9% 50 ML IVPB ONE (15:15)
[2021-01-06 16:02] VITALS: BP 146/76; PULSE 74; TEMP 99.3
== END 2021-01-06 16:30 | disposition home or self-care (01) ==
LOC: EC 12:59
DX: U07.1 COVID-19 (principal); E11.9 Type 2 diabetes mellitus without complications; I10 Essential (primary) hypertension; E78.5 Hyperlipidemia, unspecified; K21.9 Gastro-esophageal reflux disease without esophagitis; J45.909 Unspecified asthma, uncomplicated; M19.90 Unspecified osteoarthritis, unspecified site; E66.9 Obesity, unspecified; Z79.4 Long term (current) use of insulin; Z79.84 Long term (current) use of oral hypoglycemic drugs; Z79.82 Long term (current) use of aspirin; Z79.51 Long term (current) use of inhaled steroids; Z79.899 Other long term (current) drug therapy; Z88.2 Allergy status to sulfonamides; Z88.8 Allergy status to other drugs, medicaments and biological substances; Z68.42 Body mass index [BMI] 45.0-49.9, adult
CPT/HCPCS: 87635; 71046; 99284; Q0247

== ENCOUNTER → 2022-05-10 | Outpatient (CLI) | payer MEDICARE, OTHER ==
--- NOTE | 2022-05-10 08:22 | US ---
EXAMINATION TYPE: US kidneys/renal and bladder DATE OF EXAM: 05/10/2022 COMPARISON: NONE CLINICAL HISTORY: N18.31 CKD Stage 3A. EXAM MEASUREMENTS: Right Kidney: 11.1 x 4.9 x 5.1 cm Left Kidney: 9.1 x 5.5 x 5.6 cm Right Kidney: No hydronephrosis or masses seen Left Kidney: No hydronephrosis or masses seen Bladder: wnl There is no evidence for hydronephrosis at this point in time. No nephrolithiasis is seen. No james s are identified. The urinary bladder is adequately distended. IMPRESSION: No hydronephrosis is seen bilaterally.
--- NOTE | 2022-05-10 10:57 | BD ---
EXAMINATION TYPE: Axial Bone Density DATE OF EXAM: 05/10/2022 CLINICAL HISTORY: 67 years old Female. ICD-10 CODE: M85.851 Osteopenia of right hip Height: 61 in Weight: 231 lbs FRAX RISK QUESTIONS: History of Fracture in Adulthood: lt wrist fx age 58 Secondary Osteoporosis: 3. Menopause before 45: partial hysterectomy age 35 RISK FACTORS HISTORY OF: History of Wrist Fracture: lt wrist age 58 Surgery to Spine: laminectomy l-spine 08/2018 Family History of Osteoporosis: yes mother Active: yes Diet low in dairy products/other sources of calcium: yes Postmenopausal woman: partial hysterectomy age 35 MEDICATIONS: Additional Medications: vit d, diabetes meds, shots in eyes monthly for macular edema, cholesterol me ds, blood pressure meds, asthma meds, kidney meds EXAM MEASUREMENTS: Bone mineral densitometry was performed using the [facility]. pt had l-spine surgery 08/2018 Bone mineral density about the R hip (g/cm2): 0.872 Bone mineral density about the L hip (g/cm2): 0.876 T Score values are as follows: -----R Neck: -1.9 -----L Neck: -1.7 -----R Total: -1.1 -----L Total: -1.0 Z Score values are as follows: -----R Neck: -1.1 -----L Neck: -0.9 -----R Total: -0.6 -----L Total: -0.6 Bone mineral density study from 04/25/18 not available Bone mineral density about the R Wrist (g/cm2): 0.654 T Score values are as follows: -----Dist. R+U: -0.1 -----Prox. R+U: -1.2 -----Radius total: -0.3 Z Score values are as follows: -----Dist. R+U: 1.4 -----Prox. R+U: 0.3 -----Radius total: 1.2 Bone mineral density baseline FRAX%s: The graph provided illustrates a 15.2% chance for a major osteoporotic fx and a 2.1% chance f or the hips probability for fx in 10 years time. IMPRESSION: Osteopenia (T Score between -2.5 and -1). There is slightly increased risk of fracture and the patient may be considered for treatment. Re-Screen 2-5 years. NOTE: T-SCORE=SD OF THE YOUNG ADULT MEAN.
[2022-05-10 13:34] LABS: Creatinine,Urine Random 192.1 mg/dL; Protein/Creatinine Ratio,Urine 0.947
[2022-05-10 16:28] LABS: Basophils # (A) 0.08 X 10*3/uL (0.00-0.10); Basophils % (A) 0.7 %; Eosinophils # (A) 0.37 X 10*3/uL (0.04-0.35); Eosinophils % (A) 3.4 %; HCT 34.4 % (37.2-46.3); HGB 10.7 g/dL (12.0-15.0); Immature Grans, Automated 0.5 %; Lymphocytes # (A) 2.43 X 10*3/uL (0.90-5.00); Lymphocytes % (A) 22.5 %; MCH 27.3 pg (27.0-32.0); MCHC 31.1 g/dL (32.0-37.0); MCV 87.8 fL (80.0-97.0); Mean Platelet Volume 10.4 fL (9.5-12.2); Monocytes # (A) 0.47 X 10*3/uL (0.20-1.00); Monocytes % (A) 4.4 %; NRBC Per 100 WBC 0 /100 WBCS (0.0-0.0); Neutrophils # (A) 7.38 X 10*3/uL (1.80-7.70); Neutrophils % (A) 68.5 %; Platelet Count 318 X 10*3/uL (140-440); RBC 3.92 X 10*6/uL (4.10-5.20); RDW 13.2 % (11.5-14.5); WBC 10.78 X 10*3/uL (4.50-10.00)
[2022-05-10 16:51] LABS: Protein, Total 7.1 g/dL (6.2-8.2)
[2022-05-10 16:52] LABS: % Iron Saturation 13.82 (12.00-45.00); ALT 21 U/L (8-44); AST 17 U/L (13-35); African American GFR (CKD) 53.1 (60.0-200.0); Albumin 4.3 g/dL (3.8-4.9); Albumin/Globulin Ratio 1.51 (1.60-3.17); Alkaline Phosphatase 94 U/L (41-126); BUN/Creat Ratio 25.08 Ratio (12.00-20.00); Blood Urea Nitrogen 30.6 mg/dL (9.0-27.0); Calcium 9.8 mg/dL (8.7-10.3); Carbon Dioxide 27.9 mmol/L (20.0-27.5); Chloride 101 mmol/L (96-109); Globulin 2.8 g/dL (1.6-3.3); Glucose 172 mg/dL (70-110); Iron 53 ug/dL (50-170); Magnesium 2.1 mg/dL (1.5-2.4); Non-African American GFR(CKD) 45.8 (60.0-200.0); Phosphorus 3.4 mg/dL (2.4-5.1); Sodium 139 mmol/L (135-145); Total Bilirubin <0.15 mg/dL (0.30-1.20); Total Iron Binding Capacity 384 ug/dL (228-460); Total Protein 7.1 g/dL (6.2-8.2); Uric Acid 5.7 mg/dL (2.9-7.7)
[2022-05-10 17:08] LABS: Ferritin 38.6 ng/mL (10.0-291.0)
[2022-05-10 22:02] LABS: Appearance,Urine Cloudy (Clear); Bilirubin,Urine Negative (Negative); Blood,Urine Negative (Negative); Color,Urine Dark Yellow (Yellow); Ketones,Urine Trace mg/dL (Negative); Nitrite,Urine Negative (Negative); Specific Gravity,Urine 1.025 (1.001-1.030); Urobilinogen,Urine 0.2 (0.2,1.0)
[2022-05-10 23:04] LABS: Bacteria,Urine 3+ /HPF (None Seen)
[2022-05-11 10:17] LABS: Free Kappa Lt Chain Qnt, Serum 4.9 mg/dL (0.33-1.94); Free Lambda Lt Chain Qnt, Seru 2.36 mg/dL (0.57-2.63)
[2022-05-11 13:01] LABS: Albumin 4.05 g/dL (3.80-4.90); Gamma Globulin 0.98 g/dL (0.70-1.50)
--- NOTE | 2022-05-11 18:22 | MM ---
Reason for Exam: Screening (asymptomatic). Last mammogram was performed 4 year(s) and 1 month(s) ago. Patient History: Menarche at age 10. First Full-Term at age 28. Hysterectomy at age 35. Risk Values: Cynthia 5 year model risk: 2.1%. NCI Lifetime model risk: 7.0%. Prior Study Comparison: 09/09/2015 Bilateral Screening Mammogram, [facility]. 09/28/2016 Bilateral Screening Mammogram, [facility]. 04/25/2018 Bilateral Screening Mammogram, [facility]. Tissue Density: There are scattered fibroglandular densities. Findings: Analyzed By CAD. There is no suspicious group of microcalcifications or new suspicious mass in either breast. Overall Assessment: Negative, BI-RAD 1 Management: Screening Mammogram of both breasts in 1 year. 1. Patient should continue monthly self breast exams. 2. A clinical breast exam by your physician is recommended on an annual basis. 3. This exam should not preclude additional follow-up of suspicious palpable abnormalities. Electronically signed and approved by: Paula Mckeon M.D. Radiologist
== END | disposition home or self-care (01) ==
LOC: RADUSWWP 07:37
PROVIDERS: ATTEND Internal Medicine
DX: Z12.31 Encounter for screening mammogram for malignant neoplasm of breast (principal); N18.31 Chronic kidney disease, stage 3a; M85.89 Other specified disorders of bone density and structure, multiple sites; Z78.0 Asymptomatic menopausal state
CPT/HCPCS: 76770; 77067; 77080; 80053; 81001; 82306; 82570; 82728; 83540; 83550; 83735; 83883; 83970; 84100; 84156; 84165; 84166; 84550; 85025

== ENCOUNTER 2023-01-19 14:56 | Emergency (ER) | payer MEDICARE, OTHER ==
[2023-01-19] MEDS ORDERED: SODIUM CHLORIDE 0.9% 1,000 ML IV ONE (15:14)
--- NOTE | 2023-01-19 15:16 | ED ---
Recheck HPI - General Chief Complaint: Recheck/Abnormal Lab/Rx Stated Complaint: Hyperglycemia Time Seen by Provider: 01/19/23 15:13 Source: patient Mode of arrival: ambulatory Limitations: no limitations - History of Present Illness Initial Comments: Janie is a 67-year-old female with history of poorly controlled type 2 diabetes who presents the ER today for evaluation of hyperglycemia. Patient reports that about 2 months ago her doctor tried to put her on [place] no but it caused severe nausea and vomiting so she was taken off of it and then resumed her normal insulin regimen however since that time she reports when she goes to bed her sugar will be in the mid 100s to 200 but she'll wake up in the morning with a sugar of 400. Patient has seen her blade groover and her primary care physician for this. Her blade groover is been making slight changes to her insulin regimen. Patient states that again today her sugar was over 400. She denies any recent illness any nausea or vomiting fever or chills. She states that this is been going on for a number of weeks. Upon arrival to the ER though her blood glucose is in the 100s. - Related Data Home Medications Medication Instructions Recorded Confirmed Aspirin 81 mg PO DAILY 01/07/14 06/13/18 DULoxetine HCL [Cymbalta] 120 mg PO HS 01/07/14 06/13/18 Latanoprost Ophth [Xalatan 0.005%] 1 drop BOTH EYES HS 01/07/14 06/13/18 amLODIPine [Norvasc] 5 mg PO HS 01/07/14 06/13/18 Albuterol Inhaler [Ventolin Hfa 1 - 2 puff INHALATION Q6HR PRN 07/18/17 06/11/18 Inhaler] Atorvastatin [Lipitor] 80 mg PO HS 07/18/17 06/13/18 Ergocalciferol (Vitamin D2) 50,000 unit PO SA 07/18/17 06/13/18 [Vitamin D2] Ipratropium-Albuterol Nebulize 3 ml INHALATION QID PRN 07/18/17 06/11/18 [Duoneb 0.5 mg-3 mg/3 ml Soln] Fluticasone Nasal [place] [Flonase 1 spray EA NOSTRIL DAILY 06/11/18 06/11/18 Nasal [place]] Insulin Aspart [NovoLOG Flexpen] 12 units SQ W/BRKFST 06/11/18 06/13/18 Insulin Aspart [NovoLOG Flexpen] 12 units SQ W/SUPPER 06/11/18 06/13/18 Insulin Aspart [NovoLOG Flexpen] 18 units SQ W/LUNCH 06/11/18 06/13/18 Insulin Glargine,Hum.rec.anlog 32 unit SQ HS 06/11/18 06/13/18 [Basaglar Kwikpen U-100] Montelukast [Singulair] 10 mg PO HS 06/11/18 06/13/18 Ozempic(Dose Unknown) 1 injection IJ SA 06/11/18 06/13/18 Pioglitazone HCl [Actos] 15 mg PO MOWEFR 06/11/18 06/13/18 Previous Rx's Medication Instructions Recorded Azithromycin [Zithromax Z-pack (6 250 mg PO DIRECTED #6 tab 10/27/19 tabs)] Ondansetron Odt [Zofran Odt] 4 mg PO Q8HR PRN #12 tab 10/27/19 predniSONE 50 mg PO DAILY #5 tablet 10/27/19 Insulin Glargine,Hum.rec.anlog 32 unit SQ HS #1 each 01/19/23 [Basaglar Kwikpen U-100] Allergies Allergy/AdvReac Type Severity Reaction Status Date / Time ezetimibe [From Zetia] Allergy Diarrhea Verified 01/19/23 15:03 metformin Allergy Nausea & Verified 01/19/23 15:03 Vomiting metoprolol Allergy Cough Verified 01/19/23 15:03 Sulfa (Sulfonamide Allergy Rash/Hives Verified 01/19/23 15:03 Antibiotics) Beta-Blockers AdvReac coughing Verified 01/19/23 15:03 (Beta-Adrenergic Bloc exenatide [From Byetta] AdvReac Nausea & Verified 01/19/23 15:03 Vomiting liraglutide [From Victoza] AdvReac Nausea & Verified 01/19/23 15:03 Vomiting pioglitazone [From Actos] AdvReac weight gain Verified 01/19/23 15:03 tape Allergy Rash/Hives Uncoded 01/19/23 15:03 Review of Systems ROS Statement: Those systems with pertinent positive or pertinent negative responses have been documented in the HPI. ROS Other: All systems not noted in ROS Statement are negative. Past Medical History Past Medical History: Asthma, Diabetes Mellitus, GERD/Reflux, Hyperlipidemia, Hypertension, Osteoarthritis (OA), Pneumonia Additional Past Medical History / Comment(s): MIGRAINES, spinal stenosis, heart murmer, hx stool incontinence, osteoporosis, on rx for UTI, has marita sensor on rt arm History of Any Multi-Drug Resistant Organisms: ESBL Date of last positivie culture/infection: 03/04/15 MDRO Source:: [place]-ESBL E.coli Past Surgical History: Back Surgery, Section, Cholecystectomy, Hernia Repair, Hysterectomy Additional Past Surgical History / Comment(s): sinus surgery/deviated septum, D&C's, Past Anesthesia/Blood Transfusion Reactions: Family History of Problems w/ Anesthesia Additional Past Anesthesia/Blood Transfusion Reaction / Comment(s): mother -PONV Past Psychological History: No Psychological Hx Reported Smoking Status: Never smoker Past Alcohol Use History: None Reported Past Drug Use History: None Reported - Past Family History Mother Family Medical History: Cancer General Exam - General Exam Comments Initial Comments: Physical Exam GENERAL: Obese patient, no acute distress HENT: Normocephalic, Atraumatic EYES: PERRL, EOMI PULMONARY: Unlabored respirations CARDIOVASCULAR: RRR Warm and well perfused extremities ABDOMEN: Non-distended SKIN: No rashes or bruising : Deferred NEUROLOGIC: Alert and oriented Normal speech Normal gait MUSCULOSKELETAL: Moving all extremities with no apparent injury PSYCHIATRIC: No SI/HI Limitations: no limitations Course Vital Signs 01/19/23 01/19/23 14:58 17:32 Temperature 97.5 F L 98.1 F Pulse Rate 79 84 Respiratory 17 18 Rate Blood Pressure 168/87 158/70 O2 Sat by Pulse 97 98 Oximetry Medical Decision Making - Medical Decision Making Was pt. sent in by a medical professional or institution (, PA, RECLAMATION KETTLE TENDER, urgent care, hospital, or retirement...) When possible be specific @ -No Did you speak to anyone other than the patient for history (EMS, parent, family, police, friend...)? What history was obtained from this source @ -No Did you review nursing and triage notes (agree or disagree)? Why? @ -I reviewed and agree with nursing and triage notes Were old charts reviewed (outside hosp., previous admission, EMS record, old EKG, old radiological studies, urgent care reports/EKG's, retirement records)? Report findings @ -No old charts were reviewed Differential Diagnosis (chest pain, altered mental status, abdominal pain women, abdominal pain men, vaginal bleeding, weakness, fever, dyspnea, syncope, headache, dizziness, GI bleed, back pain, seizure, CVA, palpatations, mental health)? @ -not applicable EKG interpreted by me (3pts min.). @ -As above X-rays interpreted by me (1pt min.). @ -None done CT interpreted by me (1pt min.). @ -None done U/S interpreted by me (1pt. min.). @ -None done What testing was considered but not performed or refused? (CT, X-rays, U/S, labs)? Why? @ -Blood work was ordered however patient's glucose was within normal range and she declined blood work What meds were considered but not given or refused? Why? @ -IV fluids to treat hyperglycemia Did you discuss the management of the patient with other professionals (professionals i.e. , PA, RECLAMATION KETTLE TENDER, lab, RT, psych nurse, social security assessor, software product manager, teacher, account officer, registered nurse hh case manager)? Give summary @ -No Was smoking cessation discussed for >3mins.? @ -No Was critical care preformed (if so, how long)? @ -No Were there social determinants of health that impacted care today? How? (Homelessness, low income, unemployed, alcoholism, drug addiction, transportation, low edu. Level, literacy, decrease access to med. care, prison, rehab)? @ -No Was there de-escalation of care discussed even if they declined (Discuss DNR or withdrawal of care, Hospice)? DNR status @ -No What co-morbidities impacted this encounter? (DM, HTN, Smoking, COPD, CAD, Cancer, CVA, ARF, Chemo, Hep., AIDS, mental health diagnosis, sleep apnea, morbid obesity)? @ -Diabetes, morbid obesity Was patient admitted / discharged? Hospital course, mention meds given and route, prescriptions, significant lab abnormalities, going to OR and other pertinent info. @ -The patient was seen and evaluated, history is obtained from the patient. Patient reporting episodes of hyperglycemia that of been ongoing since switching her diabetes medications nearly is followed with endocrinology for that she's followed with her primary care for this. Patient states that they've increased her nightly long-acting insulin she only has tonight's dose left and then she's out she contacted her primary care office and hasn't got confirmation that they called in her prescription to the pharmacy she is anxious about not having her long-acting insulin over the weekend which prompted her visit to the ER today. Patient declined blood work or IV fluids. She was given a prescription for long-acting insulin pen and discharged home in stable condition. Undiagnosed new problem with uncertain prognosis? @ -No Drug Therapy requiring intensive monitoring for toxicity (Heparin, Nitro, Insulin, Cardizem)? @ -No Were any procedures done? @ -No Diagnosis/symptom? @ -Hyperglycemia secondary to type 2 diabetes Acute, or Chronic, or Acute on Chronic? @ -default Uncomplicated (without systemic symptoms) or Complicated (systemic symptoms)? @ -Complicated Side effects of treatment? @ -No Exacerbation, Progression, or Severe Exacerbation? @ -No Poses a threat to life or bodily function? How? (Chest pain, [place], [place], pneumonia, PE, COPD, DKA, ARF, appy, cholecystitis, CVA, Diverticulitis, Homicidal, Suicidal, threat to staff... and all critical care pts) @ -No Disposition Clinical Impression: Hyperglycemia due to type 2 diabetes mellitus Disposition: HOME SELF-CARE Condition: Stable Prescriptions: Insulin Glargine,Hum.rec.anlog [Carlos Eduardo Bergeron U-100] 32 unit SQ HS #1 each Is patient prescribed a controlled substance at d/c from ED?: No Referrals: Liang Crowley MD [Primary Care Provider] - 1-2 days
[2023-01-19 17:36] VITALS: BP 158/70; PULSE 84; RESP 18; TEMP 98.1
== END 2023-01-19 17:34 | disposition home or self-care (01) ==
LOC: EC 14:56
DX: E11.65 Type 2 diabetes mellitus with hyperglycemia (principal); I10 Essential (primary) hypertension; J45.909 Unspecified asthma, uncomplicated; E78.5 Hyperlipidemia, unspecified; M19.90 Unspecified osteoarthritis, unspecified site; Z79.82 Long term (current) use of aspirin; Z79.4 Long term (current) use of insulin; Z79.899 Other long term (current) drug therapy; Z88.2 Allergy status to sulfonamides; Z88.8 Allergy status to other drugs, medicaments and biological substances; Z91.048 Other nonmedicinal substance allergy status; Z88.9 Allergy status to unspecified drugs, medicaments and biological substances; Z90.49 Acquired absence of other specified parts of digestive tract
CPT/HCPCS: 99284

== ENCOUNTER 2023-03-17 06:09 | Emergency (ER) | payer MEDICARE, OTHER ==
[2023-03-17 06:24] VITALS: TEMP 98.6
--- NOTE | 2023-03-17 06:44 | ED ---
URI HPI - General Chief Complaint: Upper Respiratory Infection Stated Complaint: bronchitis,ASTHMA Time Seen by Provider: 03/17/23 06:20 Source: patient, RN notes reviewed Mode of arrival: ambulatory Limitations: no limitations - History of Present Illness Initial Comments: 67-year-old female presents emergency department with chief complaint of cough congestion. Patient states that she has had symptoms for last several days she does have a history of asthma diabetes and hypertension. Patient states she had increasing nasal congestion, mild productive cough, wheezing. Denies any nausea, diarrhea constipation states that she has had possible fever, chills. - Related Data Home Medications Medication Instructions Recorded Confirmed Aspirin 81 mg PO DAILY 01/07/14 06/13/18 DULoxetine HCL [Cymbalta] 120 mg PO HS 01/07/14 06/13/18 Latanoprost Ophth [Xalatan 0.005%] 1 drop BOTH EYES HS 01/07/14 06/13/18 amLODIPine [Norvasc] 5 mg PO HS 01/07/14 06/13/18 Albuterol Inhaler [Ventolin Hfa 1 - 2 puff INHALATION Q6HR PRN 07/18/17 06/11/18 Inhaler] Atorvastatin [Lipitor] 80 mg PO HS 07/18/17 06/13/18 Ergocalciferol (Vitamin D2) 50,000 unit PO SA 07/18/17 06/13/18 [Vitamin D2] Ipratropium-Albuterol Nebulize 3 ml INHALATION QID PRN 07/18/17 06/11/18 [Duoneb 0.5 mg-3 mg/3 ml Soln] Fluticasone Nasal [place] [Flonase 1 spray EA NOSTRIL DAILY 06/11/18 06/11/18 Nasal [place]] Insulin Aspart [NovoLOG Flexpen] 12 units SQ W/BRKFST 06/11/18 06/13/18 Insulin Aspart [NovoLOG Flexpen] 12 units SQ W/SUPPER 06/11/18 06/13/18 Insulin Aspart [NovoLOG Flexpen] 18 units SQ W/LUNCH 06/11/18 06/13/18 Insulin Glargine,Hum.rec.anlog 32 unit SQ HS 06/11/18 06/13/18 [Basaglar Kwikpen U-100] Montelukast [Singulair] 10 mg PO HS 06/11/18 06/13/18 Ozempic(Dose Unknown) 1 injection IJ SA 06/11/18 06/13/18 Pioglitazone HCl [Actos] 15 mg PO MOWEFR 06/11/18 06/13/18 Previous Rx's Medication Instructions Recorded Azithromycin [Zithromax Z-pack (6 250 mg PO DIRECTED #6 tab 10/27/19 tabs)] Ondansetron Odt [Zofran Odt] 4 mg PO Q8HR PRN #12 tab 10/27/19 predniSONE 50 mg PO DAILY #5 tablet 10/27/19 Insulin Glargine,Hum.rec.anlog 32 unit SQ HS #1 each 01/19/23 [Basaglronald Bergeron U-100] Allergies Allergy/AdvReac Type Severity Reaction Status Date / Time ezetimibe [From Zetia] Allergy Diarrhea Verified 01/19/23 15:03 metformin Allergy Nausea & Verified 01/19/23 15:03 Vomiting metoprolol Allergy Cough Verified 01/19/23 15:03 Sulfa (Sulfonamide Allergy Rash/Hives Verified 01/19/23 15:03 Antibiotics) Beta-Blockers AdvReac coughing Verified 01/19/23 15:03 (Beta-Adrenergic Bloc exenatide [From [place]] AdvReac Nausea & Verified 01/19/23 15:03 Vomiting liraglutide [From Victoza] AdvReac Nausea & Verified 01/19/23 15:03 Vomiting pioglitazone [From Actos] AdvReac weight gain Verified 01/19/23 15:03 tape Allergy Rash/Hives Uncoded 01/19/23 15:03 Review of Systems ROS Statement: Those systems with pertinent positive or pertinent negative responses have been documented in the HPI. ROS Other: All systems not noted in ROS Statement are negative. Past Medical History Past Medical History: Asthma, Diabetes Mellitus, GERD/Reflux, Hyperlipidemia, Hypertension, Osteoarthritis (OA), Pneumonia Additional Past Medical History / Comment(s): MIGRAINES, spinal stenosis, heart murmer, hx stool incontinence, osteoporosis, on rx for UTI, has marita sensor on rt arm History of Any Multi-Drug Resistant Organisms: ESBL Date of last positivie culture/infection: 03/04/15 MDRO Source:: [place]-ESBL E.coli Past Surgical History: Back Surgery, Section, Cholecystectomy, Hernia Repair, Hysterectomy Additional Past Surgical History / Comment(s): sinus surgery/deviated septum, D&C's, Past Anesthesia/Blood Transfusion Reactions: Family History of Problems w/ Anesthesia Additional Past Anesthesia/Blood Transfusion Reaction / Comment(s): mother -PONV Past Psychological History: No Psychological Hx Reported Smoking Status: Never smoker Past Alcohol Use History: None Reported Past Drug Use History: None Reported - Past Family History Mother Family Medical History: Cancer General Exam Limitations: no limitations General appearance: alert, in no apparent distress Head exam: Present: atraumatic, normocephalic, normal inspection Eye exam: Present: normal appearance, PERRL, EOMI. Absent: scleral icterus, conjunctival injection, periorbital swelling ENT exam: Present: normal exam, mucous membranes moist Neck exam: Present: normal inspection, full ROM. Absent: tenderness, meningismus, lymphadenopathy Respiratory exam: Present: wheezes. Absent: normal lung sounds bilaterally, respiratory distress, rales, rhonchi, stridor Cardiovascular Exam: Present: regular rate, normal rhythm, normal heart sounds. Absent: systolic murmur, diastolic murmur, rubs, gallop, clicks Course Vital Signs 03/17/23 03/17/23 03/17/23 06:15 07:41 07:49 Temperature 98.6 F Pulse Rate 93 92 92 Respiratory 18 Rate Blood Pressure 201/105 O2 Sat by Pulse 98 Oximetry 03/17/23 03/17/23 03/17/23 07:50 07:58 08:09 Temperature Pulse Rate 92 96 98 Respiratory 20 Rate Blood Pressure 167/89 O2 Sat by Pulse 97 Oximetry Medical Decision Making - Medical Decision Making Was pt. sent in by a medical professional or institution (, PA, SAW GRINDER, urgent care, hospital, or care home...) When possible be specific @ -No Did you speak to anyone other than the patient for history (EMS, parent, family, police, friend...)? What history was obtained from this source @ -No Did you review nursing and triage notes (agree or disagree)? Why? @ -I reviewed and agree with nursing and triage notes Were old charts reviewed (outside hosp., previous admission, EMS record, old EKG, old radiological studies, urgent care reports/EKG's, care home records)? Report findings @ -No old charts were reviewed Differential Diagnosis (chest pain, altered mental status, abdominal pain women, abdominal pain men, vaginal bleeding, weakness, fever, dyspnea, syncope, headache, dizziness, GI bleed, back pain, seizure, CVA, palpatations, mental health, musculoskeletal)? @ -COVID 19, RSV, influenza, pneumonia, acute bronchitis, URI, this list is not all inclusive EKG interpreted by me (3pts min.). @ -[None X-rays interpreted by me (1pt min.). @ -Chest x-ray shows no acute cardiopulmonary process CT interpreted by me (1pt min.). @ -None done U/S interpreted by me (1pt. min.). @ -None done What testing was considered but not performed or refused? (CT, X-rays, U/S, labs)? Why? @ -None What meds were considered but not given or refused? Why? @ -None Did you discuss the management of the patient with other professionals (professionals i.e. , PA, SAW GRINDER, lab, RT, psych nurse, social welfare administrator, engine lathe set up operator, teacher, command center officer, pillowcase turner)? Give summary @ -No Was smoking cessation discussed for >3mins.? @ -No Was critical care preformed (if so, how long)? @ -No Were there social determinants of health that impacted care today? How? (Homeles sness, low income, unemployed, alcoholism, drug addiction, transportation, low edu. Level, literacy, decrease access to med. care, residential, rehab)? @ -No Was there de-escalation of care discussed even if they declined (Discuss DNR or withdrawal of care, Hospice)? DNR status @ -No What co-morbidities impacted this encounter? (DM, HTN, Smoking, COPD, CAD, Cancer, CVA, ARF, Chemo, Hep., AIDS, mental health diagnosis, sleep apnea, morbid obesity)? @ -[Asthma Was patient admitted / discharged? Hospital course, mention meds given and route, prescriptions, significant lab abnormalities, going to OR and other pertinent info. @ -Discharge patient is RSV positive. Patient no signs distress. Patient be discharged in stable condition. She does have a history of hypertension states that she is due to take her meds. Undiagnosed new problem with uncertain prognosis? @ -[No Drug Therapy requiring intensive monitoring for toxicity (Heparin, Nitro, Insulin, Cardizem)? @ -No Were any procedures done? @ -No Diagnosis/symptom? @ -[RSV infection Acute, or Chronic, or Acute on Chronic? @ -Acute Uncomplicated (without systemic symptoms) or Complicated (systemic symptoms)? @ -Uncomplicated Side effects of treatment? @ -[No Exacerbation, Progression, or Severe Exacerbation? @ -No Poses a threat to life or bodily function? How? (Chest pain, [place], [place], pneumonia, PE, COPD, DKA, ARF, appy, cholecystitis, CVA, Diverticulitis, Homicidal, Suicidal, threat to staff... and all critical care pts) @ -No - Lab Data Lab Results 03/17/23 Range/Units 06:32 Influenza Type A (PCR) Not Detected (Not Detectd) Influenza Type B (PCR) Not Detected (Not Detectd) RSV (PCR) Detected A (Not Detectd) SARS-CoV-2 (PCR) Not Detected (Not Detectd) Disposition Clinical Impression: RSV infection Disposition: HOME SELF-CARE Condition: Stable Instructions (If sedation given, give patient instructions): Respiratory Syncytial Virus (ED) Additional Instructions: Please return to the Emergency Department if symptoms worsen or any other concerns. Is patient prescribed a controlled substance at d/c from ED?: No Referrals: Liang Crowley MD [Primary Care Provider] - 1-2 days Time of Disposition: 07:39
--- NOTE | 2023-03-17 07:06 | XR ---
EXAMINATION TYPE: XR chest 2V DATE OF EXAM: 03/17/2023 COMPARISON: 01/06/2021 HISTORY: Shortness of breath TECHNIQUE: Frontal and lateral views of the chest are obtained. FINDINGS: There is no focal air space opacity, pleural effusion, or pneumothorax seen. The cardiac silhouette size is within normal limits. The osseous structures are intact. IMPRESSION: No acute cardiopulmonary process.
[2023-03-17] MEDS: IPRATROPIUM-ALBUTEROL 3 ML NEB INHALATION STA (07:40)
[2023-03-17 08:23] VITALS: BP 167/89; PULSE 98; RESP 20
== END 2023-03-17 08:10 | disposition home or self-care (01) ==
LOC: EC 06:09
DX: R05.9 Cough, unspecified (principal); R09.81 Nasal congestion; B97.4 Respiratory syncytial virus as the cause of diseases classified elsewhere; J45.909 Unspecified asthma, uncomplicated; E11.9 Type 2 diabetes mellitus without complications; I10 Essential (primary) hypertension; E78.5 Hyperlipidemia, unspecified; Z20.822 Contact with and (suspected) exposure to COVID-19; Z79.4 Long term (current) use of insulin; Z79.84 Long term (current) use of oral hypoglycemic drugs; Z79.82 Long term (current) use of aspirin; Z79.899 Other long term (current) drug therapy; Z88.2 Allergy status to sulfonamides; Z88.8 Allergy status to other drugs, medicaments and biological substances; Z91.09 Other allergy status, other than to drugs and biological substances; Z90.49 Acquired absence of other specified parts of digestive tract
CPT/HCPCS: 71046; 87636; 94640; 99285

== ENCOUNTER 2023-03-19 14:05 | Inpatient (IN) | payer MEDICARE, OTHER ==
--- NOTE | 2023-03-19 14:30 | ED ---
General Adult HPI - General Chief complaint: Shortness of Breath Stated complaint: TOPHER Time Seen by Provider: 03/19/23 14:10 Source: patient, RN notes reviewed, old records reviewed Mode of arrival: EMS Limitations: no limitations - History of Present Illness Initial comments: This is a 67-year-old female who presents to the emergency department stating that she was here in the emergency department on Sunday and was diagnosed with RSV. Patient states her breathing has gotten worse and she is wheezing a lot more. Patient states he is taking her breathing treatments at home and did not get any good results. Patient denies any fever patient denies any chest pain or abdominal pain patient denies any back pain. Patient has headache patient is n umbness weakness. Patient's only complaint is she is having a very difficult time breathing and cannot function normally at home at this time. Patient states she is a diabetic and has not been taking her insulin today or yesterday - Related Data Home Medications Medication Instructions Recorded Confirmed Aspirin 81 mg PO DAILY 01/07/14 03/19/23 DULoxetine HCL [Cymbalta] 120 mg PO HS 01/07/14 03/19/23 Latanoprost Ophth [Xalatan 0.005%] 1 drop BOTH EYES HS 01/07/14 03/19/23 Albuterol Inhaler [Ventolin Hfa 1 - 2 puff INHALATION RT-Q6H PRN 07/18/1703/19 Inhaler] Insulin Aspart [NovoLOG Flexpen] 28 units SQ W/BRKFST 06/11/18 03/19/23 Insulin Aspart [NovoLOG Flexpen] 28 units SQ W/LUNCH 06/11/18 03/19/23 Insulin Aspart [NovoLOG Flexpen] 30 units SQ W/SUPPER 06/11/18 03/19/23 Insulin Glargine,Hum.rec.anlog 55 unit SQ HS 06/11/18 03/19/23 [Basaglar Kwikpen U-100] Montelukast [Singulair] 10 mg PO HS 06/11/18 03/19/23 Albuterol Nebulized [Ventolin 2.5 mg INHALATION RT-Q6H PRN 03/19/23 03/19/23 Nebulized] Ascorbic Acid [Vitamin C] 1,000 mg PO DAILY 03/19/23 03/19/23 Brimonidine Tartrate [Alphagan P 1 drops BOTH EYES BID 03/19/23 03/19/23 0.2% Ophth Soln] Cholecalciferol [Vitamin D3 (25 25 mcg PO DAILY 03/19/23 03/19/23 Mcg = 1000 Iu)] Dorzolamide HCl/Pf [Dorzolamide 2% 1 drop BOTH EYES BID 03/19/23 03/19/23 Eye Drop] Insulin Aspart [NovoLOG Flexpen] See Protocol SQ AC-TID PRN 03/19/23 03/19/23 Magnesium Oxide [Magox 400] 400 mg PO DAILY PRN 03/19/23 03/19/23 Rosuvastatin Calcium [Crestor] 40 mg PO HS 03/19/23 03/19/23 Vitamin B Complex 1 cap PO DAILY 03/19/23 03/19/23 amLODIPine [Norvasc] 10 mg PO HS 03/19/23 03/19/23 Allergies Allergy/AdvReac Type Severity Reaction Status Date / Time ezetimibe [From Zetia] Allergy Diarrhea Verified 03/19/23 16:13 metformin Allergy Nausea & Verified 03/19/23 16:13 Vomiting metoprolol Allergy Cough Verified 03/19/23 16:13 Sulfa (Sulfonamide Allergy Rash/Hives Verified 03/19/23 16:13 Antibiotics) Beta-Blockers AdvReac coughing Verified 03/19/23 16:13 (Beta-Adrenergic Bloc exenatide [From Byetta] AdvReac Nausea & Verified 03/19/23 16:13 Vomiting liraglutide [From Victoza] AdvReac Nausea & Verified 03/19/23 16:13 Vomiting pioglitazone [From Actos] AdvReac weight gain Verified 03/19/23 16:13 tape Allergy Rash/Hives Uncoded 03/19/23 16:13 Review of Systems ROS Statement: Those systems with pertinent positive or pertinent negative responses have been documented in the HPI. ROS Other: All systems not noted in ROS Statement are negative. Past Medical History Past Medical History: Asthma, Diabetes Mellitus, GERD/Reflux, Hyperlipidemia, Hypertension, Osteoarthritis (OA), Pneumonia Additional Past Medical History / Comment(s): MIGRAINES, spinal stenosis, heart murmer, hx stool incontinence, osteoporosis, on rx for UTI, has marita sensor on rt arm History of Any Multi-Drug Resistant Organisms: ESBL Date of last positivie culture/infection: 03/04/15 MDRO Source:: [facility]-ESBL E.coli Past Surgical History: Back Surgery, Section, Cholecystectomy, Hernia Repair, Hysterectomy Additional Past Surgical History / Comment(s): sinus surgery/deviated septum, D&C's, Past Anesthesia/Blood Transfusion Reactions: Family History of Problems w/ Anesthesia Additional Past Anesthesia/Blood Transfusion Reaction / Comment(s): mother -PONV Past Psychological History: No Psychological Hx Reported Smoking Status: Never smoker Past Alcohol Use History: None Reported Past Drug Use History: None Reported - Past Family History Mother Family Medical History: Cancer General Exam - General Exam Comments Initial Comments: GENERAL: Patient is well-developed and well-nourished. Patient is nontoxic and well- hydrated and is in mild distress. Patient's O2 sat is 86% on room air ENT: Neck is soft and supple. No significant lymphadenopathy is noted. Oropharynx is clear. Moist mucous membranes. Neck has full range of motion without eliciting any pain. EYES: The sclera were anicteric and conjunctiva were pink and moist. Extraocular movements were intact and pupils were equal round and reactive to light. Eyelids were unremarkable. PULMONARY: Patient is wheezing diffusely CARDIOVASCULAR: There is a regular rate and rhythm without any murmurs gallops or rubs. ABDOMEN: Soft and nontender with normal bowel sounds. No palpable organomegaly was noted. There is no palpable pulsatile mass. SKIN: Skin is clear with no lesions or rashes and otherwise unremarkable. NEUROLOGIC: Patient is alert and oriented x3. Cranial nerves II through XII are grossly intact. Motor and sensory are also intact. Normal speech, volume and content. Symmetrical smile. MUSCULOSKELETAL: Normal extremities with adequate strength and full range of motion. LYMPHATICS: No significant lymphadenopathy is noted PSYCHIATRIC: Normal psychiatric evaluation. Limitations: no limitations Course Vital Signs 03/19/23 03/19/23 03/19/23 14:08 15:20 15:42 Temperature 99.1 F Pulse Rate 83 76 84 Respiratory 28 H Rate Blood Pressure 159/81 O2 Sat by Pulse 88 L Oximetry 03/19/23 03/19/23 16:13 18:30 Temperature 99.8 F H Pulse Rate 89 77 Respiratory 24 24 Rate Blood Pressure 174/82 163/84 O2 Sat by Pulse 97 96 Oximetry Medical Decision Making - Medical Decision Making EKG is interpreted by myself read EKG shows a sinus rhythm with occasional PVC at 81 bpm [place] interval 135 QRS is 106 QT interval 398 QTc is 436. Patient's EKG shows no ST segment elevation or depression. Was pt. sent in by a medical professional or institution ([facility]LE [facility], [employer], urgent care, hospital, or prison...) When possible be specific @ -No Did you speak to anyone other than the patient for history (EMS, parent, family, police, friend...)? What history was obtained from this source @ -No Did you review nursing and triage notes (agree or disagree)? Why? @ -I reviewed and agree with nursing and triage notes Were old charts reviewed (outside hosp., previous admission, EMS record, old EKG, old radiological studies, urgent care reports/EKG's, prison records)? Report findings @ -I reviewed prior charts and prior lab work on this patient Differential Diagnosis (chest pain, altered mental status, abdominal pain women, abdominal pain men, vaginal bleeding, weakness, fever, dyspnea, syncope, headache, dizziness, GI bleed, back pain, seizure, CVA, palpatations, mental health, musculoskeletal)? @ -Differential Dyspnea: Coronary syndrome, arrhythmia, tamponade, asthma, COPD, pulmonary embolism, pneumonia, pneumothorax, pulmonary effusion, anaphylaxis, diabetic ketoacidosis, flailed chest, pulmonary contusion, diaphragmatic rupture, anemia, neuromuscu lar, this is not meant to be an all-inclusive list. EKG interpreted by me (3pts min.). @ -As above X-rays interpreted by me (1pt min.). @ -X-ray showed signs of vascular congestion CT interpreted by me (1pt min.). @ -CT scan showed no PE but showed possible vascular congestion versus atypical pneumonia U/S interpreted by me (1pt. min.). @ -None done What testing was considered but not performed or refused? (CT, X-rays, U/S, labs)? Why? @ -None What meds were considered but not given or refused? Why? @ -None Did you discuss the management of the patient with other professionals (professionals i.e. NICOLE Fuller, [employer], lab, RT, psych nurse, social science analyst, linux server engineer, teacher, wildlife officer, nurse outreach case manager)? Give summary @ -I spoke with Dr. Crowley and he agreed to admit the patient. I spoke with Dr. Whittaker Was smoking cessation discussed for >3mins.? @ -No Was critical care preformed (if so, how long)? @ -No Were there social determinants of health that impacted care today? How? (Homelessness, low income, unemployed, alcoholism, drug addiction, transportation, low edu. Level, literacy, decrease access to med. care, halfway, rehab)? @ -No Was there de-escalation of care discussed even if they declined (Discuss DNR or withdrawal of care, Hospice)? DNR status @ -No What co-morbidities impacted this encounter? (DM, HTN, Smoking, COPD, CAD, Cancer, CVA, ARF, Chemo, Hep., AIDS, mental health diagnosis, sleep apnea, morbid obesity)? @ -None Was patient admitted / discharged? Hospital course, mention meds given and route, prescriptions, significant lab abnormalities, going to OR and other pertinent info. @ -Patient was wheezing diffusely and received albuterol treatment x 2 and steroids and she was breathing better however she was not at her baseline. Patient had a CT scan which showed atypical pneumonia. Patient's troponin was mildly elevated. Patient's glucose was 448. Patient also had mild anemia. I spoke with [facility] hospitalist they agreed admit the patient admit the patient wrote admitting orders Undiagnosed new problem with uncertain prognosis? @ -No Drug Therapy requiring intensive monitoring for toxicity (Heparin, Nitro, Insulin, Cardizem)? @ -No Were any procedures done? @ -No Diagnosis/symptom? @ -RSV Acute, or Chronic, or Acute on Chronic? @ -Acute Uncomplicated (without systemic symptoms) or Complicated (systemic symptoms)? @ -Complicated Side effects of treatment? @ -No Exacerbation, Progression, or Severe Exacerbation? @ -No Poses a threat to life or bodily function? How? (Chest pain, USA, MT, pneumonia, PE, COPD, DKA, ARF, appy, cholecystitis, CVA, Diverticulitis, Homicidal, Suicidal, threat to staff... and all critical care pts) @ -No Diagnosis/symptom? @ -Hyperglycemia Acute, or Chronic, or Acute on Chronic? @ -Acute Uncomplicated (without systemic symptoms) or Complicated (systemic symptoms)? @ -Complicated Side effects of treatment? @ -None Exacerbation, Progression, or Severe Exacerbation] @ -No Poses a threat to life or bodily function? @ -No Diagnosis/symptom? @ -Elevated troponin Acute, or Chronic, or Acute on Chronic? @ -Acute Uncomplicated (without systemic symptoms) or Complicated (systemic symptoms)? @ -Complicated Side effects of treatment? @ -None Exacerbation, Progression, or Severe Exacerbation] @ -No Poses a threat to life or bodily function? @ -No Diagnosis/symptom? @ -Anemia Acute, or Chronic, or Acute on Chronic? @ -Acute on chronic Uncomplicated (without systemic symptoms) or Complicated (systemic symptoms)? @ -Complicated Side effects of treatment? @ -None Exacerbation, Progression, or Severe Exacerbation] @ -No Poses a threat to life or bodily function? @ -No Diagnosis/symptom? @ -Bronchospasm Acute, or Chronic, or Acute on Chronic? @ -Acute Uncomplicated (without systemic symptoms) or Complicated (systemic symptoms)? @ -Complicated Side effects of treatment? @ -None Exacerbation, Progression, or Severe Exacerbation] @ -No Poses a threat to life or bodily function? @ -Yes is clear to hypoxia and endorgan dysfunction - Lab Data Result diagrams: 03/19/23 14:13 03/19/23 14:13 Lab Results 03/19/23 03/19/23 03/19/23 Range/Units 14:13 14:13 14:13 WBC 9.5 (3.8-10.6) k/uL RBC 3.41 L (3.80-5.40) m/uL Hgb 9.2 L (11.4-16.0) gm/dL Hct 29.1 L (34.0-46.0) % MCV 85.2 (80.0-100.0) fL MCH 27.0 (25.0-35.0) pg MCHC 31.7 (31.0-37.0) g/dL RDW 15.8 H (11.5-15.5) % Plt Count 263 (150-450) k/uL MPV 8.1 Neutrophils % 84 % Lymphocytes % 9 % Monocytes % 5 % Eosinophils % 0 % Basophils % 1 % Neutrophils # 8.0 H (1.3-7.7) k/uL Lymphocytes # 0.9 L (1.0-4.8) k/uL Monocytes # 0.4 (0-1.0) k/uL Eosinophils # 0.0 (0-0.7) k/uL Basophils # 0.1 (0-0.2) k/uL Hypochromasia Slight PT 10.4 (10.0-12.5) sec INR 0.9 (<1.2) APTT 22.1 (22.0-30.0) sec D-Dimer 0.84 H (<0.60) mg/L FEU Sodium 129 L (137-145) mmol/L Potassium 4.6 (3.5-5.1) mmol/L Chloride 98 (98-107) mmol/L Carbon Dioxide 24 (22-30) mmol/L Anion Gap 7 mmol/L BUN 46 H (7-17) mg/dL Creatinine 1.21 H (0.52-1.04) mg/dL Est GFR (CKD-EPI)AfAm 54 (>60 ml/min/1.73 sqM) Est GFR (CKD-EPI)NonAf 47 (>60 ml/min/1.73 sqM) Glucose 448 H (74-99) mg/dL POC Glucose (mg/dL) (70-110) mg/dL POC Glu Quality Assurance Supervisor Chassis ID Plasma Lactic Acid Beni (0.7-2.0) mmol/L Calcium 8.9 (8.4-10.2) mg/dL Magnesium 2.0 (1.6-2.3) mg/dL Total Bilirubin 0.7 (0.2-1.3) mg/dL AST 28 (14-36) U/L ALT 19 (4-34) U/L Alkaline Phosphatase 98 (38-126) U/L Troponin I (0.000-0.034) ng/mL NT-Pro-B Natriuret Pep pg/mL Total Protein 6.6 (6.3-8.2) g/dL Albumin 3.7 (3.5-5.0) g/dL 03/19/23 03/19/23 03/19/23 Range/Units 14:13 14:13 16:17 WBC (3.8-10.6) k/uL RBC (3.80-5.40) m/uL Hgb (11.4-16.0) gm/dL Hct (34.0-46.0) % MCV (80.0-100.0) fL MCH (25.0-35.0) pg MCHC (31.0-37.0) g/dL RDW (11.5-15.5) % Plt Count (150-450) k/uL MPV Neutrophils % % Lymphocytes % % Monocytes % % Eosinophils % % Basophils % % Neutrophils # (1.3-7.7) k/uL Lymphocytes # (1.0-4.8) k/uL Monocytes # (0-1.0) k/uL Eosinophils # (0-0.7) k/uL Basophils # (0-0.2) k/uL Hypochromasia PT (10.0-12.5) sec INR (<1.2) APTT (22.0-30.0) sec D-Dimer (<0.60) mg/L FEU Sodium (137-145) mmol/L Potassium (3.5-5.1) mmol/L Chloride (98-107) mmol/L Carbon Dioxide (22-30) mmol/L Anion Gap mmol/L BUN (7-17) mg/dL Creatinine (0.52-1.04) mg/dL Est GFR (CKD-EPI)AfAm (>60 ml/min/1.73 sqM) Est GFR (CKD-EPI)NonAf (>60 ml/min/1.73 sqM) Glucose (74-99) mg/dL POC Glucose (mg/dL) (70-110) mg/dL POC Glu Quality Assurance Supervisor Chassis ID Plasma Lactic Acid Beni 1.6 (0.7-2.0) mmol/L Calcium (8.4-10.2) mg/dL Magnesium (1.6-2.3) mg/dL Total Bilirubin (0.2-1.3) mg/dL AST (14-36) U/L ALT (4-34) U/L Alkaline Phosphatase (38-126) U/L Troponin I 0.037 H* (0.000-0.034) ng/mL NT-Pro-B Natriuret Pep 5540 pg/mL Total Protein (6.3-8.2) g/dL Albumin (3.5-5.0) g/dL 03/19/23 Range/Units 18:09 WBC (3.8-10.6) k/uL RBC (3.80-5.40) m/uL Hgb (11.4-16.0) gm/dL Hct (34.0-46.0) % MCV (80.0-100.0) fL MCH (25.0-35.0) pg MCHC (31.0-37.0) g/dL RDW (11.5-15.5) % Plt Count (150-450) k/uL MPV Neutrophils % % Lymphocytes % % Monocytes % % Eosinophils % % Basophils % % Neutrophils # (1.3-7.7) k/uL Lymphocytes # (1.0-4.8) k/uL Monocytes # (0-1.0) k/uL Eosinophils # (0-0.7) k/uL Basophils # (0-0.2) k/uL Hypochromasia PT (10.0-12.5) sec INR (<1.2) APTT (22.0-30.0) sec D-Dimer (<0.60) mg/L FEU Sodium (137-145) mmol/L Potassium (3.5-5.1) mmol/L Chloride (98-107) mmol/L Carbon Dioxide (22-30) mmol/L Anion Gap mmol/L BUN (7-17) mg/dL Creatinine (0.52-1.04) mg/dL Est GFR (CKD-EPI)AfAm (>60 ml/min/1.73 sqM) Est GFR (CKD-EPI)NonAf (>60 ml/min/1.73 sqM) Glucose (74-99) mg/dL POC Glucose (mg/dL) 439 H (70-110) mg/dL POC Glu Quality Assurance Supervisor Chassis ID Chris, Cristiane Plasma Lactic Acid Beni (0.7-2.0) mmol/L Calcium (8.4-10.2) mg/dL Magnesium (1.6-2.3) mg/dL Total Bilirubin (0.2-1.3) mg/dL AST (14-36) U/L ALT (4-34) U/L Alkaline Phosphatase (38-126) U/L Troponin I (0.000-0.034) ng/mL NT-Pro-B Natriuret Pep pg/mL Total Protein (6.3-8.2) g/dL Albumin (3.5-5.0) g/dL Disposition Clinical Impression: Hyperglycemia, Anemia, Elevated troponin, RSV (acute bronchiolitis due to respiratory syncytial virus), Acute bronchospasm Disposition: ADMITTED IP TO THIS HOSP Referrals: Liang Crowley MD [Primary Care Provider] - 1-2 days Time of Disposition: 18:35
[2023-03-19 14:34] LABS: Basophils # (A) 0.1 k/uL (0-0.2); Basophils % (A) 1 %; Eosinophils % (A) 0 %; HCT 29.1 % (34.0-46.0); HGB 9.2 gm/dL (11.4-16.0); Hypochromasia Slight; Lymphocytes # (A) 0.9 k/uL (1.0-4.8); Lymphocytes % (A) 9 %; MCHC 31.7 g/dL (31.0-37.0); MCV 85.2 fL (80.0-100.0); Mean Platelet Volume 8.1; Monocytes # (A) 0.4 k/uL (0-1.0); Monocytes % (A) 5 %; Neutrophils % (A) 84 %; Platelet Count 263 k/uL (150-450); RBC 3.41 m/uL (3.80-5.40); RDW 15.8 % (11.5-15.5); WBC 9.5 k/uL (3.8-10.6)
[2023-03-19 14:44] LABS: ALT 19 U/L (4-34); AST 28 U/L (14-36); African American GFR (CKD) 54 (>60 ml/min/1.73 sqM); Albumin 3.7 g/dL (3.5-5.0); Alkaline Phosphatase 98 U/L (38-126); Anion Gap 7 mmol/L; Blood Urea Nitrogen 46 mg/dL (7-17); Calcium 8.9 mg/dL (8.4-10.2); Carbon Dioxide 24 mmol/L (22-30); Chloride 98 mmol/L (98-107); Glucose 448 mg/dL (74-99); Non-African American GFR(CKD) 47 (>60 ml/min/1.73 sqM); Sodium 129 mmol/L (137-145); Total Bilirubin 0.7 mg/dL (0.2-1.3); Total Protein 6.6 g/dL (6.3-8.2)
[2023-03-19 14:45] LABS: Potassium 4.6 mmol/L (3.5-5.1)
[2023-03-19 14:48] LABS: INR 0.9 (<1.2); Partial Thromboplastin Time 22.1 sec (22.0-30.0); Prothrombin Time 10.4 sec (10.0-12.5)
--- NOTE | 2023-03-19 14:49 | XR ---
EXAMINATION TYPE: XR chest 2V DATE OF EXAM: 03/19/2023 2:33 PM CLINICAL INDICATION:Female, 67 years old with history of difficulty breathing; [facility] COMPARISON: Chest radiographs from 03/17/2023. TECHNIQUE: XR chest 2V Frontal and lateral views of the chest. FINDINGS: Lungs/Pleura: There is no evidence of pleural effusion, focal consolidation, or pneumothorax. Pulmonary vascularity: Pulmonary vascular congestion. Heart/mediastinum: Cardiomediastinal silhouette is enlarged and stable. Musculoskeletal: No acute osseous pathology. IMPRESSION: Cardiomegaly and mild pulmonary vascular congestion. Correlate with BNP for congestive heart failure.
[2023-03-19] MEDS: methylPREDNISolone SOD SUCCI 125 MG/2 ML VIAL IV STA (15:13)
[2023-03-19] MEDS: ALBUTEROL NEBULIZED 2.5 MG/3 ML INHALATION STA (15:17)
[2023-03-19] MEDS: IPRATROPIUM 0.5 MG/2.5 ML NEBU INHALATION STA (15:17)
--- NOTE | 2023-03-19 16:29 | CT ---
CTA CHEST EXAMINATION TYPE: CT chest angio for PE DATE OF EXAM: 03/19/2023 INDICATION: elevated D-dimer, dyspnea CT DLP: 1125.4 mGycm, Automated exposure control for dose reduction was used. CONTRAST: Patient injected with 80 mL of Isovue 370. COMPARISON: None TECHNIQUE: CT of the chest is performed on a spiral scan at 2 mm thick sections. Study is performed with intravenous contrast timed for evaluation for pulmonary embolism. This will limit additional po rtions of the evaluation. 3-D MIP images reconstructed by the technologist are reviewed on the compu ter in the coronal and sagittal planes. FINDINGS: No persistent filling defects are evident to suggest an acute pulmonary embolism. No mediastinal or hilar adenopathy enlarged by CT criteria is evident. Scattered small lymph nodes a re present. The ascending aorta diameter at the level of the main pulmonary artery is 3.4 cm. The main pulmonary artery diameter at the bifurcation is 3.0 cm. Some patchy infiltrate is through the right upper and mid lung. Some mild patchy infiltrate is at the lung bases. Correlate for atelectasis or pneumonia. Consider atypical pneumonia. Limited CT sections were through the upper abdomen. Upper abdomen appears unremarkable. IMPRESSION: 1. No acute pulmonary embolus. 2. Patchy bilateral lung infiltrates. Correlate for atypical pneumonia. Atelectasis should be conside red.
[2023-03-19] MEDS: INSULIN ASPART (NovoLOG) 100 UNIT/ML VIAL SQ ONE (16:37)
[2023-03-19 18:11] LABS: Glucose,Whole Blood 439 mg/dL (70-110)
[2023-03-19] MEDS ORDERED: MAGNESIUM OXIDE 400 MG TAB PO PRN (18:37)
[2023-03-19] MEDS ORDERED: IPRATROPIUM-ALBUTEROL 3 ML NEB INHALATION PRN (18:37)
[2023-03-19] MEDS: FUROSEMIDE 10 MG/ML 2 ML VIAL IV STA (18:37)
[2023-03-19] MEDS ORDERED: DEXTROSE 50% SYRINGE 50 ML IVP PRN ×2 (18:40)
[2023-03-19] MEDS: ACETAMINOPHEN TAB 500 MG TAB PO STA (18:45)
[2023-03-19 19:26] LABS: Basophils % (A) 0 %; Eosinophils % (A) 0 %; HCT 28.7 % (34.0-46.0); HGB 8.9 gm/dL (11.4-16.0); Hypochromasia Moderate; Lymphocytes # (A) 0.5 k/uL (1.0-4.8); Lymphocytes % (A) 6 %; MCHC 31.2 g/dL (31.0-37.0); MCV 86.3 fL (80.0-100.0); Monocytes # (A) 0.2 k/uL (0-1.0); Monocytes % (A) 2 %; Neutrophils # (A) 7.5 k/uL (1.3-7.7); Neutrophils % (A) 91 %; Platelet Count 260 k/uL (150-450); RBC 3.32 m/uL (3.80-5.40); RDW 15.5 % (11.5-15.5); WBC 8.2 k/uL (3.8-10.6)
[2023-03-19 19:35] LABS: ALT 18 U/L (4-34); AST 22 U/L (14-36); African American GFR (CKD) 49 (>60 ml/min/1.73 sqM); Albumin 3.5 g/dL (3.5-5.0); Alkaline Phosphatase 96 U/L (38-126); Anion Gap 5 mmol/L; Blood Urea Nitrogen 44 mg/dL (7-17); Calcium 8.7 mg/dL (8.4-10.2); Carbon Dioxide 25 mmol/L (22-30); Chloride 99 mmol/L (98-107); Glucose 403 mg/dL (74-99); Non-African American GFR(CKD) 42 (>60 ml/min/1.73 sqM); Potassium 4.4 mmol/L (3.5-5.1); Sodium 129 mmol/L (137-145); Total Bilirubin 0.4 mg/dL (0.2-1.3); Total Protein 6.4 g/dL (6.3-8.2)
[2023-03-19] MEDS: ALBUTEROL NEBULIZED 2.5 MG/3 ML INHALATION PRN (20:21)
[2023-03-19] MEDS: BUDESONIDE 1 MG/2 ML NEBU INHALATION STA (20:21)
[2023-03-19 20:35] LABS: Glucose,Whole Blood 426 mg/dL (70-110)
[2023-03-19] MEDS ORDERED: INSULIN ASPART (NovoLOG) 100 UNIT/ML VIAL SQ SCH (21:00)
[2023-03-19] MEDS: DULoxetine HCL 60 MG CAPSULE.DR PO SCH (21:50)
[2023-03-19] MEDS: ATORVASTATIN 80 MG TAB PO SCH (21:51)
[2023-03-19] MEDS: amLODIPine 10 MG TAB PO SCH (21:51)
[2023-03-19] MEDS: MONTELUKAST 10 MG TAB PO SCH (21:51)
[2023-03-19] MEDS: FUROSEMIDE 10 MG/ML 10 ML VIAL IV SCH (21:52)
[2023-03-19] MEDS: LATANOPROST 0.005% OPHTH DROPS 2.5 ML BTL BOTH EYES SCH (21:52)
[2023-03-19] MEDS: BRIMONIDINE TARTRATE 0.2% DROPS 5 ML BTL BOTH EYES SCH (21:52)
[2023-03-19] MEDS: DORZOLAMIDE HCL 2% DROPS 10 ML BTL BOTH EYES SCH (21:52)
[2023-03-19] MEDS: INSULIN ASPART (NovoLOG) 100 UNIT/ML VIAL SQ SCH ×2 (22:02→22:03)
[2023-03-19] MEDS: INSULIN DETEMIR (LEVEMIR) 100 UNIT/ML SYR SQ SCH (22:04)
[2023-03-20] MEDS: methylPREDNISolone SOD SUCCI 125 MG/2 ML VIAL IV SCH (01:13)
--- NOTE | 2023-03-20 03:36 | P.CNPUL ---
History of Present Illness Consult date: 03/20/23 Requesting physician: Gareth Hermosillo Reason for consult: asthma, other (RSV) Chief complaint: Shortness of breath History of present illness: I am seeing this patient in consultation today 03/20/2023 in the emergency room after she presented with ongoing worsening URI-like symptoms. Patient states that she was diagnosed with RSV infection on March 17. Patient is a 67-year-old white female with past medical history significant for chronic bronchial asthma, allergic rhinitis, diabetes mellitus, hypertension, hyperlipidemia, among other things. Her primary care provider is Dr. Crowley. She has been seen previously in the pulmonary office, but it has been almost 3 years since her last visit. States that she has had ongoing and worsening URI- like symptoms over the past month. This started with runny nose and clear nasal drainage, intermittent cough with minimal sputum production, fatigue/malaise, and subjective fevers. She was treated outpatient at a local urgent care center with a steroid taper. She states that this did not help.. Her symptoms have progressively worsened, and she is now short of breath, which is particularly worse with any type of exertion. She has had diarrhea over the last 3 days, and reduced appetite. Denies any bloody bowel movements. denies any nausea or vomiting. Denies abdominal pain. Denies any chest pain heart palpitations, or syncope. Denies orthopnea or PND. Admits lower extremity swelling. Patient presented to the emergency room yesterday afternoon with above-mentioned symptoms. Chest CTA on arrival was negative for any pulmonary embolism. It did show patchy bilateral lung infiltrates suspicious for atypical pneumonia/viral pneumonia. CBC on arrival did not show any leukocytosis. WBC count 8.2, hemoglobin 8.9, hematocrit 28.7, platelets 260. BMP on arrival: Sodium 129, potassium 4.4, chloride 99, serum bicarb 25, BUN 44, creatinine 1.31, glucose 403. Troponins mildly elevated, and peaked at 0.047. NT proBNP was elevated at 5540. Patient was given a dose of Lasix in the emergency room and started on Lasix 60 mg twice daily. Echocardiogram is pending for the morning. Patient is currently resting in bed, on 3 L/min nasal cannula, in no acute distress. She did have a low-grade temperature of 99.8 F on arrival. Vital signs are stable. Review of Systems REVIEW OF SYSTEMS: CONSTITUTIONAL: Denies any recent significant weight loss or weight gain. EYES: Denies change in vision. EARS, NOSE, MOUTH, THROAT: Denies headaches, denies sore throat. CARDIOVASCULAR: Denies chest pain, palpitations or syncopal episodes. RESPIRATORY: see HPI. GASTROINTESTINAL: Admits reduced appetite and self-limiting diarrhea. Denies any abdominal pain. Denies any nausea or vomiting. Denies hematemesis or bloody bowel movements. GENITOURINARY: Denies hematuria, denies infections. MUSKULOSKELETAL: Denies pain, denies swelling. INTEGUMENTARY: Denies rash, denies eczema. NEUROLOGICAL: Denies recent memory loss, no recent seizure activity. PSYCHIATRIC: Denies anxiety, denies depression. HEMATOLOGIC/LYMPHATIC: Denies anemia, denies enlarged lymph node Past Medical History Past Medical History: Asthma, Diabetes Mellitus, GERD/Reflux, Hyperlipidemia, H ypertension, Osteoarthritis (OA), Pneumonia Additional Past Medical History / Comment(s): MIGRAINES, spinal stenosis, heart murmer, hx stool incontinence, osteoporosis, on rx for UTI, has marita sensor on rt arm History of Any Multi-Drug Resistant Organisms: ESBL Date of last positivie culture/infection: 03/04/15 MDRO Source:: [facility]-ESBL E.coli Past Surgical History: Back Surgery, Section, Cholecystectomy, Hernia Repair, Hysterectomy Additional Past Surgical History / Comment(s): sinus surgery/deviated septum, D&C's, Past Anesthesia/Blood Transfusion Reactions: Family History of Problems w/ Anesthesia Additional Past Anesthesia/Blood Transfusion Reaction / Comment(s): mother -PONV Past Psychological History: No Psychological Hx Reported Smoking Status: Never smoker Past Alcohol Use History: None Reported Past Drug Use History: None Reported - Past Family History Mother Family Medical History: Cancer Medications and Allergies Home Medications Medication Instructions Recorded Confirmed Type Aspirin 81 mg PO DAILY 01/07/14 03/19/23 History DULoxetine HCL [Cymbalta] 120 mg PO HS 01/07/14 03/19/23 History Latanoprost Ophth [Xalatan 0.005%] 1 drop BOTH EYES HS 01/07/14 03/19/23 History Albuterol Inhaler [Ventolin Hfa 1 - 2 puff INHALATION RT-Q6H PRN 07/18/1703/19 History Inhaler] Insulin Aspart [NovoLOG Flexpen] 28 units SQ W/BRKFST 06/11/18 03/19/23 History Insulin Aspart [NovoLOG Flexpen] 28 units SQ W/LUNCH 06/11/18 03/19/23 History Insulin Aspart [NovoLOG Flexpen] 30 units SQ W/SUPPER 06/11/18 03/19/23 History Insulin Glargine,Hum.rec.anlog 55 unit SQ HS 06/11/18 03/19/23 History [Basaglar Kwikpen U-100] Montelukast [Singulair] 10 mg PO HS 06/11/18 03/19/23 History Albuterol Nebulized [Ventolin 2.5 mg INHALATION RT-Q6H PRN 03/19/23 03/19/23 History Nebulized] Ascorbic Acid [Vitamin C] 1,000 mg PO DAILY 03/19/23 03/19/23 History Brimonidine Tartrate [Alphagan P 1 drops BOTH EYES BID 03/19/23 03/19/23 History 0.2% Ophth Soln] Cholecalciferol [Vitamin D3 (25 25 mcg PO DAILY 03/19/23 03/19/23 History Mcg = 1000 Iu)] Dorzolamide HCl/Pf [Dorzolamide 2% 1 drop BOTH EYES BID 03/19/23 03/19/23 History Eye Drop] Insulin Aspart [NovoLOG Flexpen] See Protocol SQ AC-TID PRN 03/19/23 03/19/23 History Magnesium Oxide [Magox 400] 400 mg PO DAILY PRN 03/19/23 03/19/23 History Rosuvastatin Calcium [Crestor] 40 mg PO HS 03/19/23 03/19/23 History Vitamin B Complex 1 cap PO DAILY 03/19/23 03/19/23 History amLODIPine [Norvasc] 10 mg PO HS 03/19/23 03/19/23 History Allergies Allergy/AdvReac Type Severity Reaction Status Date / Time ezetimibe [From Zetia] Allergy Diarrhea Verified 03/19/23 16:13 metformin Allergy Nausea & Verified 03/19/23 16:13 Vomiting metoprolol Allergy Cough Verified 03/19/23 16:13 Sulfa (Sulfonamide Allergy Rash/Hives Verified 03/19/23 16:13 Antibiotics) Beta-Blockers AdvReac coughing Verified 03/19/23 16:13 (Beta-Adrenergic Bloc exenatide [From Byetta] AdvReac Nausea & Verified 03/19/23 16:13 Vomiting liraglutide [From Victoza] AdvReac Nausea & Verified 03/19/23 16:13 Vomiting pioglitazone [From Actos] AdvReac weight gain Verified 03/19/23 16:13 tape Allergy Rash/Hives Uncoded 03/19/23 16:13 Physical Exam Vitals: Vital Signs Temp Pulse Resp BP Pulse Ox 03/19/23 23:00 79 20 160/80 98 03/19/23 20:40 79 03/19/23 20:22 70 03/19/23 19:33 98.5 F 03/19/23 18:30 99.8 F H 77 24 163/84 96 03/19/23 16:13 89 24 174/82 97 03/19/23 15:42 84 03/19/23 15:20 76 03/19/23 14:08 99.1 F 83 28 H 159/81 88 L Intake and Output 03/19/23 03/19/23 03/20/23 14:59 22:59 06:59 Other: Weight 109.316 kg GENERAL EXAM: Alert, 67-year-old morbidly obese white female, comfortable in no apparent distress. HEAD: Normocephalic and atraumatic EYES: Normal reaction of pupils, equal size. NOSE: Clear with pink turbinates. THROAT: No erythema or exudates. NECK: No masses, no JVD. CHEST: No chest wall deformity. LUNGS: Equal air entry with diffuse expiratory wheezing and rhonchi. On 3 L/min nasal cannula. SpO2 is 100%. No conversational dyspnea or accessory muscle use.. CVS: S1 and S2 normal with no audible murmur, regular rhythm. No extra heart sounds ABDOMEN: Obese abdomen, hepatosplenomegaly, active bowel sounds, no guarding or rigidity. SPINE: No scoliosis or deformity SKIN: No rashes CENTRAL NERVOUS SYSTEM: No focal deficits, tone is normal in all 4 extremities. EXTREMITIES: There is no peripheral edema, clubbing, or cyanosis. Peripheral pulses are intact. Results - Laboratory Findings CBC and BMP: 03/19/23 19:09 03/19/23 19:09 PT/INR, D-dimer PT 10.4 sec (10.0-12.5) 03/19/23 14:13 INR 0.9 (<1.2) 03/19/23 14:13 D-Dimer 0.84 mg/L FEU (<0.60) H 03/19/23 14:13 Abnormal lab findings: Abnormal Labs 03/19/23 03/19/23 03/19/23 14:13 14:13 14:13 RBC 3.41 L Hgb 9.2 L Hct 29.1 L RDW 15.8 H Neutrophils # 8.0 H Lymphocytes # 0.9 L D-Dimer 0.84 H Sodium 129 L BUN 46 H Creatinine 1.21 H Glucose 448 H POC Glucose (mg/dL) Troponin I 03/19/23 03/19/23 03/19/23 14:13 18:09 19:09 RBC 3.32 L Hgb 8.9 L Hct 28.7 L RDW Neutrophils # Lymphocytes # 0.5 L D-Dimer Sodium BUN Creatinine Glucose POC Glucose (mg/dL) 439 H Troponin I 0.037 H* 03/19/23 03/19/23 03/19/23 19:09 19:09 20:33 RBC Hgb Hct RDW Neutrophils # Lymphocytes # D-Dimer Sodium 129 L BUN 44 H Creatinine 1.31 H Glucose 403 H POC Glucose (mg/dL) 426 H Troponin I 0.047 H* - Diagnostic Findings Chest x-ray: image reviewed CT scan - chest: image reviewed Assessment and Plan Assessment: Acute exacerbation of the patient's chronic bronchial asthma secondary to acute RSV infection. Initial chest x-ray demonstrated stable cardiomegaly with pulmonary vascular congestion. Follow-up chest CTA Demonstrates patchy bilateral lung infiltrates, primarily involving the lower lobes, concerning for atypical bacterial pneumonia or viral pneumonia. Negative for PE. Positive for R SV on 03/17/23. Negative for COVID and Influenza. Possible acute CHF exacerbation, unknown type. NT proBNP was elevated. Acute hypoxemic respiratory failure, secondary to above Elevated troponins, flat, not consistent with ACS Acute kidney injury, possibly secondary to dehydration Normocytic normochromic anemia, no acute blood loss noted. Type 2 diabetes mellitus, insulin-dependent Hypertension Hyperlipidemia Morbid obesity, with a BMI of 44.1 kg/m Plan: Patient's medications, labs, imaging reviewed Continue supplemental oxygen, to be weaned as tolerated, to maintain SpO2 grea ter than 92% Continue combination of DuoNebs [id number], Symbicort inhaler, and IV Solu-Medrol Started the patient on empiric antibiotics, procalcitonin level pending. Patient was also started on diuretics in the form of Lasix 60 mg BID. Follow-up echocardiogram is pending. We will continue to follow I have personally seen and examined the patient, performed the documentation and the assessment and plan as written. Number of minutes spent on the visit:20 Time with Patient: Greater than 30
[2023-03-20] MEDS: AZITHROMYCIN 500 MG in SODIUM CHLORIDE 0.9% 250 ML IVPB SCH (03:57)
[2023-03-20] MEDS: SYMBICORT 160-4.5 MCG INHALER INHALATION SCH (07:34)
[2023-03-20] MEDS: IPRATROPIUM-ALBUTEROL 3 ML NEB INHALATION SCH (07:34)
[2023-03-20 07:58] LABS: Glucose,Whole Blood 178 mg/dL (70-110)
[2023-03-20] MEDS: ASCORBIC ACID 500 MG TAB PO SCH (08:08)
[2023-03-20] MEDS: PANTOPRAZOLE 40 MG TABLET PO SCH (08:08)
[2023-03-20] MEDS: CHOLECALCIFEROL 25 MCG (1000 IU) TABLET PO SCH (08:08)
[2023-03-20] MEDS: ASPIRIN 81 MG PO SCH (08:08)
[2023-03-20] MEDS: ENOXAPARIN 40 MG/0.4 ML SYRINGE SQ SCH (08:09)
[2023-03-20] MEDS ORDERED: NON FORMULARY DRUG (Vitamin B Complex [Vitamin B Complex] 1 EACH Capsule) PO SCH (09:00)
[2023-03-20 12:31] LABS: Glucose,Whole Blood 231 mg/dL (70-110)
[2023-03-20 12:33] LABS: ALT 19 U/L (4-34); AST 25 U/L (14-36); African American GFR (CKD) 40 (>60 ml/min/1.73 sqM); Albumin 3.5 g/dL (3.5-5.0); Alkaline Phosphatase 83 U/L (38-126); Anion Gap 7 mmol/L; Blood Urea Nitrogen 55 mg/dL (7-17); Calcium 8.7 mg/dL (8.4-10.2); Carbon Dioxide 27 mmol/L (22-30); Chloride 99 mmol/L (98-107); Glucose 151 mg/dL (74-99); Non-African American GFR(CKD) 35 (>60 ml/min/1.73 sqM); Potassium 4.9 mmol/L (3.5-5.1); Sodium 133 mmol/L (137-145); Total Bilirubin 0.3 mg/dL (0.2-1.3); Total Protein 6.3 g/dL (6.3-8.2)
[2023-03-20] MEDS: INSULIN ASPART (NovoLOG) 100 UNIT/ML VIAL SQ SCH ×2 (12:49→17:15)
--- NOTE | 2023-03-20 13:05 | P.CRDCN ---
History of Present Illness Consult date: 03/20/23 Consult reason: congestive heart failure History of present illness: History of present illness: This is a 67-year-old female patient of Dr. Santoro with past medical history of overweight, diabetes, hypertension, dyslipidemia, valvular heart disease with mild to moderate MR, mild AR, mild . We have been asked to evaluate the patient for CHF. Patient states that she felt like she was run over by a truck with significant fatigue cough and congestion. Patient also complains of fatigue and fevers. Patient also had diarrhea and decreased appetite. She states it started about 3 weeks ago she was using her nebulizer treatment and sitting in lazy boy and sleeping sitting up. She was seen at [facility] [place] on 03/17 and was diagnosed with RSV and discharged home. Patient returned yesterday with same symptoms. Patient has been started on DuoNeb treatments, Pulmicort, IV antibiotics, Lasix 20 mg IV x 1 followed by 60 mg every 12 hours and IV Solu-Medrol. Patient is seen today in the emergency center waiting for a bed on the cardiac stepdown unit. Patient was diagnosed with RSV on Sunday in the emergency center. EKG sinus rhythm with poor R wave progression Chest x-ray: Cardiomegaly and mild pulmonary vascular congestion. CTA of the chest negative for pulmonary embolism WBC 8.2, hemoglobin 8.9, platelet count 260. Sodium 129, potassium 4 4, BUN 44 creatinine 1.31. Blood sugar 403. Troponin 0.037, 0.047, 0.031. Liver function test in normal limits. proBNP 5540. Home cardiac medications: Amlodipine 10 mg at bedtime, aspirin 81 mg daily, Crestor 40 mg at bedtime. Review Of Systems: At the time of my exam: CONSTITUTIONAL: Denies fever or chills. HEENT: Denies blurred vision, vision changes, or eye pain. Denies hemoptysis CARDIOVASCULAR: Denies chest pain. Denies orthopnea. Denies PND. Denies palpitations RESPIRATORY: + shortness of breath. + Cough and congestion + intermittent sputum production GASTROINTESTINAL: Denies abdominal pain. Denies nausea or vomiting. HEMATOLOGIC: Denies bleeding disorders. GENITOURINARY: Denies any blood in urine. SKIN: Denies pruitis. Denies rash. Physical examination: Gen: This is a 67-year-old morbidly obese female in no acute distress VS: reviewed HEENT: Head is atraumatic, normocephalic. Pupils equal, round. Sclerae is anicteric. NECK: Supple. No JVD. LUNGS: Diffuse wheezes throughout, no crackles no intercostal retractions. HEART: Regular rate and rhythm. Systolic murmur at right upper and left upper sternal border ABDOMEN: Soft No tenderness. EXTREMITIES: No pedal edema. No calf tenderness. NEUROLOGICAL: Patient is awake, alert and oriented x3. Assessment: Elevated troponin secondary to viral infection Elevated BNP of unclear significance RSV Acute exacerbation of chronic asthma Acute hypoxic respiratory failure Acute kidney injury Diabetes mellitus type 2 insulin requiring Hypertension Hyperlipidemia Morbid obesity with BMI of 44 Plan: Continue patient's home cardiac medications Currently on IV Lasix 60 mg every 12 hours Obtain 2-D echocardiogram and Doppler study to assess cardiac structure and function Further recommendations to follow based upon clinical course Thank you kindly for this consultation. Nurse practitioner note has been reviewed, I agree with documented findings and plan of care. Patient was seen and examined. Past Medical History Past Medical History: Asthma, Diabetes Mellitus, GERD/Reflux, Hyperlipidemia, Hypertension, Osteoarthritis (OA), Pneumonia Additional Past Medical History / Comment(s): MIGRAINES, spinal stenosis, heart murmer, hx stool incontinence, osteoporosis, on rx for UTI, has marita sensor on rt arm History of Any Multi-Drug Resistant Organisms: ESBL Date of last positivie culture/infection: 03/04/15 MDRO Source:: [facility]-ESBL E.coli Past Surgical History: Back Surgery, Section, Cholecystectomy, Hernia Repair, Hysterectomy Additional Past Surgical History / Comment(s): sinus surgery/deviated septum, D&C's, Past Anesthesia/Blood Transfusion Reactions: Family History of Problems w/ Anesthesia Additional Past Anesthesia/Blood Transfusion Reaction / Comment(s): mother -PONV Past Psychological History: No Psychological Hx Reported Smoking Status: Never smoker Past Alcohol Use History: None Reported Past Drug Use History: None Reported - Past Family History Mother Family Medical History: Cancer Medications and Allergies Home Medications Medication Instructions Recorded Confirmed Type Aspirin 81 mg PO DAILY 01/07/14 03/19/23 History DULoxetine HCL [Cymbalta] 120 mg PO HS 01/07/14 03/19/23 History Latanoprost Ophth [Xalatan 0.005%] 1 drop BOTH EYES HS 01/07/14 03/19/23 History Albuterol Inhaler [Ventolin Hfa 1 - 2 puff INHALATION RT-Q6H PRN 07/18/17 03/19/23 History Inhaler] Insulin Aspart [NovoLOG Flexpen] 28 units SQ W/BRKFST 06/11/18 03/19/23 History Insulin Aspart [NovoLOG Flexpen] 28 units SQ W/LUNCH 06/11/18 03/19/23 History Insulin Aspart [NovoLOG Flexpen] 30 units SQ W/SUPPER 06/11/18 03/19/23 History Insulin Glargine,Hum.rec.anlog 55 unit SQ HS 06/11/18 03/19/23 History [Basaglar Kwikpen U-100] Montelukast [Singulair] 10 mg PO HS 06/11/18 03/19/23 History Albuterol Nebulized [Ventolin 2.5 mg INHALATION RT-Q6H PRN 03/19/23 03/19/23 History Nebulized] Ascorbic Acid [Vitamin C] 1,000 mg PO DAILY 03/19/23 03/19/23 History Brimonidine Tartrate [Alphagan P 1 drops BOTH EYES BID 03/19/23 03/19/23 History 0.2% Ophth Soln] Cholecalciferol [Vitamin D3 (25 25 mcg PO DAILY 03/19/23 03/19/23 History Mcg = 1000 Iu)] Dorzolamide HCl/Pf [Dorzolamide 2% 1 drop BOTH EYES BID 03/19/23 03/19/23 History Eye Drop] Insulin Aspart [NovoLOG Flexpen] See Protocol SQ AC-TID PRN 03/19/23 03/19/23 History Magnesium Oxide [Magox 400] 400 mg PO DAILY PRN 03/19/23 03/19/23 History Rosuvastatin Calcium [Crestor] 40 mg PO HS 03/19/23 03/19/23 History Vitamin B Complex 1 cap PO DAILY 03/19/23 03/19/23 History amLODIPine [Norvasc] 10 mg PO HS 03/19/23 03/19/23 History Allergies Allergy/AdvReac Type Severity Reaction Status Date / Time ezetimibe [From Zetia] Allergy Diarrhea Verified 03/19/23 16:13 metformin Allergy Nausea & Verified 03/19/23 16:13 Vomiting metoprolol Allergy Cough Verified 03/19/23 16:13 Sulfa (Sulfonamide Allergy Rash/Hives Verified 03/19/23 16:13 Antibiotics) Beta-Blockers AdvReac coughing Verified 03/19/23 16:13 (Beta-Adrenergic Bloc exenatide [From Byetta] AdvReac Nausea & Verified 03/19/23 16:13 Vomiting liraglutide [From Victoza] AdvReac Nausea & Verified 03/19/23 16:13 Vomiting pioglitazone [From Actos] AdvReac weight gain Verified 03/19/23 16:13 tape Allergy Rash/Hives Uncoded 03/19/23 16:13 Physical Exam Vitals: Vital Signs Temp Pulse Resp BP Pulse Ox 03/20/23 07:39 99 03/20/23 07:35 69 03/20/23 03:00 71 18 154/78 98 03/19/23 23:00 79 20 160/80 98 03/19/23 20:40 79 03/19/23 20:22 70 03/19/23 19:33 98.5 F 03/19/23 18:30 99.8 F H 77 24 163/84 96 03/19/23 16:13 89 24 174/82 97 03/19/23 15:42 84 03/19/23 15:20 76 03/19/23 14:08 99.1 F 83 28 H 159/81 88 L Results 03/19/23 19:09 03/20/23 07:27 Cardiac Enzymes 03/19/23 03/19/23 03/19/23 Range/Units 14:13 14:13 19:09 AST 28 22 (14-36) U/L Troponin I 0.037 H* (0.000-0.034) ng/mL 03/19/23 03/20/23 Range/Units 19:09 00:59 AST (14-36) U/L Troponin I 0.047 H* 0.031 (0.000-0.034) ng/mL Coagulation 03/19/23 Range/Units 14:13 PT 10.4 (10.0-12.5) sec APTT 22.1 (22.0-30.0) sec CBC 03/19/23 03/19/23 Range/Units 14:13 19:09 WBC 9.5 8.2 (3.8-10.6) k/uL RBC 3.41 L 3.32 L (3.80-5.40) m/uL Hgb 9.2 L 8.9 L (11.4-16.0) gm/dL Hct 29.1 L 28.7 L (34.0-46.0) % Plt Count 263 260 (150-450) k/uL Comprehensive Metabolic Panel 03/19/23 03/19/23 Range/Units 14:13 19:09 Sodium 129 L 129 L (137-145) mmol/L Potassium 4.6 4.4 (3.5-5.1) mmol/L Chloride 98 99 (98-107) mmol/L Carbon Dioxide 24 25 (22-30) mmol/L BUN 46 H 44 H (7-17) mg/dL Creatinine 1.21 H 1.31 H (0.52-1.04) mg/dL Glucose 448 H 403 H (74-99) mg/dL Calcium 8.9 8.7 (8.4-10.2) mg/dL AST 28 22 (14-36) U/L ALT 19 18 (4-34) U/L Alkaline Phosphatase 98 96 (38-126) U/L Total Protein 6.6 6.4 (6.3-8.2) g/dL Albumin 3.7 3.5 (3.5-5.0) g/dL Current Medications Generic Name Dose Route Start Last Admin Trade Name Freq PRN Reason Stop Dose Admin Albuterol Sulfate 2.5 mg 03/19/23 18:37 03/19/23 20:21 Albuterol Nebulized 2.5 Mg/3 Ml INHALATION 2.5 mg RT-Q6H PRN Administration Shortness Of Breath Albuterol/Ipratropium 3 ml 03/20/23 08:00 03/20/23 07:34 Ipratropium-Albuterol 3 Ml Neb INHALATION 3 ml RT-QID DEE DEE Administration Amlodipine Besylate 10 mg 03/19/23 21:00 03/19/23 21:51 Amlodipine 10 Mg Tab PO 10 mg HS DEE DEE Administration Ascorbic Acid 1,000 mg 03/20/23 09:00 Ascorbic Acid 500 Mg Tab PO DAILY [facility] Aspirin 81 mg 03/20/23 09:00 Aspirin 81 Mg PO DAILY [facility] Atorvastatin Calcium 80 mg 03/19/23 21:00 03/19/23 21:51 Atorvastatin 80 Mg Tab PO 80 mg HS DEE DEE Administration Brimonidine Tartrate 1 drops 03/19/23 21:00 03/19/23 21:52 Brimonidine Tartrate 0.2% Drops 5 Ml Btl BOTH EYES 1 drops BID DEE DEE Administration Budesonide/Formoterol Fumarate 2 puff 03/20/23 08:00 03/20/23 07:34 Symbicort 160-4.5 Mcg Inhaler INHALATION 2 puff RT-BID DEE DEE Administration Cholecalciferol 25 mcg 03/20/23 09:00 Cholecalciferol 25 Mcg (1000 Iu) Tablet PO DAILY DEE DEE Dextrose/Water 25 ml 03/19/23 18:40 Dextrose 50% Syringe 50 Ml IVP PER PROTOCOL PRN Hypoglycemia Protocol Dextrose/Water 50 ml 03/19/23 18:40 Dextrose 50% Syringe 50 Ml IVP PER PROTOCOL PRN Hypoglycemia Protocol Dorzolamide HCl 1 drops 03/19/23 21:00 03/19/23 21:52 Dorzolamide Hcl 2% Drops 10 Ml Btl BOTH EYES 1 drops BID DEE DEE Administration Duloxetine HCl 120 mg 03/19/23 21:00 03/19/23 21:50 Duloxetine Hcl 60 Mg Capsule.Dr PO 120 mg HS DEE DEE Administration Enoxaparin Sodium 40 mg 03/20/23 09:00 Enoxaparin 40 Mg/0.4 Ml Syringe SQ DAILY DEE DEE Furosemide 60 mg 03/19/23 21:00 03/19/23 21:52 Furosemide 10 Mg/Ml 10 Ml Vial IV 60 mg Q12HR DEE DEE Administration Azithromycin 500 mg/ Sodium 250 mls @ 250 mls/hr 03/20/23 03:00 03/20/23 0 3:57 Chloride IVPB 03/22/23 03:59 250 mls/hr Q24H DEE DEE Administration Protocol Ceftriaxone Sodium 1 gm/ 50 mls @ 100 mls/hr 03/20/23 03:00 03/20/23 03:22 Sodium Chloride IVPB 100 mls/hr Q24H DEE DEE Administration Protocol Insulin Aspart 28 unit 03/20/23 07:30 03/19/23 22:02 Insulin Aspart (Novolog) 100 Unit/Ml Vial SQ 28 unit W/BRKFST DEE DEE Administration Insulin Aspart 28 unit 03/20/23 12:30 Insulin Aspart (Novolog) 100 Unit/Ml Vial SQ W/LUNCH DEE DEE Insulin Aspart 30 unit 03/20/23 17:30 Insulin Aspart (Novolog) 100 Unit/Ml Vial SQ W/SUPPER [facility] Insulin Aspart 0 unit 03/19/23 21:00 03/19/23 22:03 Insulin Aspart (Novolog) 100 Unit/Ml Vial SQ Not Given ACHS [facility] Protocol Insulin Detemir 55 unit 03/19/23 21:00 03/19/23 22:04 Insulin Detemir (Levemir) 100 Unit/Ml Syr SQ 55 unit HS [facility] Administration Latanoprost 1 drops 03/19/23 21:00 03/19/23 21:52 Latanoprost 0.005% Ophth Drops 2.5 Ml Btl BOTH EYES 1 drops HS [facility] Administration Magnesium Oxide 400 mg 03/19/23 18:37 Magnesium Oxide 400 Mg Tab PO DAILY PRN Constipation Methylprednisolone Sodium Succinate 60 mg 03/20/23 00:00 03/20/23 06:10 Methylprednisolone Sod Succi 125 Mg/2 Ml Vial IV 60 mg Q6HR [facility] Administration Montelukast Sodium 10 mg 03/19/23 21:00 03/19/23 21:51 Montelukast 10 Mg Tab PO 10 mg HS [facility] Administration Pantoprazole Sodium 40 mg 03/20/23 07:30 Pantoprazole 40 Mg Tablet PO AC-BRKFST [facility] 03/19/23 19:09 03/19/23 19:09
[2023-03-20 13:39] LABS: Basophils # (A) 0.01 X 10*3/uL (0.00-0.10); Basophils % (A) 0.1 %; Eosinophils # (A) 0 X 10*3/uL (0.04-0.35); Eosinophils % (A) 0 %; HCT 27.9 % (37.2-46.3); HGB 8.7 g/dL (12.0-15.0); Lymphocytes # (A) 1.21 X 10*3/uL (0.90-5.00); Lymphocytes % (A) 13.4 %; MCH 26.3 pg (27.0-32.0); MCHC 31.2 g/dL (32.0-37.0); MCV 84.3 FL (80.0-97.0); Mean Platelet Volume 10.4 FL (9.5-12.2); Monocytes # (A) 0.45 X 10*3/uL (0.20-1.00); Neutrophils % (A) 80.9 %; Platelet Count 269 X 10*3/uL (140-440); RBC 3.31 X 10*6/uL (4.10-5.20); RDW 15.3 % (11.5-14.5); WBC 9.02 X 10*3/uL (4.50-10.00)
[2023-03-20 16:33] LABS: Glucose,Whole Blood 235 mg/dL (70-110)
--- NOTE | 2023-03-20 19:35 | P.HPIM ---
History of Present Illness H&P Date: 03/19/23 Chief Complaint: RSV infection, asthma exacerbation, acute diastolic heart f ailure HISTORY OF PRESENT ILLNESS: This is a 67-year-old female with a previous medical history significant for hypertension and hypertensive cardiovascular disease, hyperlipidemia, diabetes mellitus type 2 with hyperglycemia diabetic polyneuropathy, allergic rhinitis, vitamin D deficiency, degenerative disc disease of the lumbar spine status post discectomy back in August 2018, coronary artery disease status post left heart catheterization back in 07/15/2018 that showed mild disease in the LAD, moderate mitral regurgitation as well as mild aortic insufficiency has been under the care of Dr. Gordon, patient developed to have a significant RSV infection back on March 17, she came to the emergency department at [facility] and she was discharged home with conservative management and supportive care, patient became quite short of breath, with increased coughing and increased phlegm production, she ended up going to the emergency department at [facility], she was quite wheezy, she did receive Solu-Medrol 125 mg IV push, nebulized treatment [id number], without any improvement, she was placed on oxygen, and she was admitted to the hospital for evaluation, her chest x-ray initially showed pulmonary vascular congestion with cardiomegaly, patient could not go for CT angiography of the chest that was negative for pulmonary embolism but did show bilateral patchy infiltrate in both lungs suggestive of atypical pneumonia versus atelectasis, patient anyway was s tarted on IV antibiotic in the form of Levaquin 750 mg IV piggyback every 4 8 hours, and Zosyn 3.375 g piggyback every 8 hours, she was kept on Solu-Medrol 60 mg IV push every 6 hours, pulmonary consultation as well as cardiology consultation was obtained, patient did present with significant edema in both lower extremities she was placed on Lasix 60 mg IV push every 12 hours as well, echocardiogram was obtained, cardiology consultation was obtained as well. REVIEW OF SYSTEMS: Constitutional: No documented fever, no chills, no night sweats. No weight change. No weakness, fatigue or lethargy. No daytime sleepiness. EENT: No headache. No blurred vision or double vision, no loss of vision. No loss of Hearing, no ringing in the ears, no dizziness. No nasal drainage or congestion. No epistaxis. No sore throat. Lungs: positive for shortness of breath, positive for cough, positive for sputum production. positive for wheezing. Reports dyspnea with activity. Cardiovascular: No chest pain, positive for lower extremity edema. No palpitations. No paroxysmal nocturnal dyspnea. positive for orthopnea. No lightheadedness or dizziness. No syncopal episodes. Abdominal: Reports abdominal pain. No nausea, vomiting. positive for diarrhea. No constipation. No bloody or tarry stools reports loss of appetite. Genitourinary: No dysuria, increased frequency, urgency. No urinary retention. Musculoskeletal: No myalgias. No muscle weakness, no gait dysfunction, no frequent falls. positive for back pain. No neck pain. Integumentary: No wounds, no lesions. No rash or pruritus. No unusual bruising. No change in hair or nails. Neurologic: No aphasia. No facial droop. No change in mentation. No head injury. No headache. No paralysis. No paresthesia. Psychiatric: No depression. No anxiety. No mood swings. Endocrine: No abnormal blood sugars. No weight change. PAST MEDICAL HISTORY: Hypertension and hypertensive cardiovascular disease. Coronary artery disease status post left heart catheterization July 15, 2018 that showed mild disease of the LAD. Moderate mitral regurgitation. Mild aortic insufficiency. Mild aortic stenosis. Mixed hyperlipidemia Diabetes mellitus type 2 with hyperglycemia Diabetic polyneuropathy. Chronic low back pain. Allergic rhinitis. Vitamin D deficiency. Chronic low back pain due to spondylosis of the lumbar spine status post lumbar discectomy in 2018. PAST SURGICAL HISTORY: Lumbar discectomy August 2018 Dr. Godfrey at [facility] Left heart catheterization showed mild disease of the LAD July 15, 2018 Bilateral cataract surgery Colonoscopy 08/05/2021. SOCIAL HISTORY: Patient is a lifelong non-smoker she denies any alcohol ingestion, she denies any drug use or abuse, she lives by herself. FAMILY HISTORY: Father at age of 82 from myocardial infarction, mother at the age of 88 from [place] and had diabetes complication patient had 1 brother who at the age of 68 from renal failure with hypertension hyperlipidemia and [place] patient has 1 daughter alive and well. PHYSICAL EXAMINATION: General: 67-year-old female sitting up in bed in minimal respiratory distress HEENT: Head is atraumatic, normocephalic, pupils were equal round reactive to light and recommendation, extraocular muscle movement were intact, sclera nonicteric, conjunctivae were pale, mucous membranes of the mouth are somewhat dry. Neck: Supple, no JVP, normal carotid upstroke bilaterally, no lymphadenopathy. Chest: Decreased breath sounds at the bases, few rhonchi, moderate expiratory wheezes, no chest wall tenderness, no intercostal retractions. Heart: First heart sound is normal, second heart sounds normal there is systolic ejection murmur 2/6 located in the right second intercostal space radiating to the base of the neck. Abdomen: Soft, nontender, nondistended, positive bowel sounds. Extremities: There is +2 edema no calf tenderness DP +2 bilaterally. Neurologic examination: Patient is awake alert and oriented x3, cranial nerves II-12 appear grossly intact, muscle power were 5 out of 5 in upper extremities a nd 5 out of 5 in bilateral lower extremities, deep tendon reflexes normal bilaterally. ASSESSMENT AND PLAN: 1. Acute hypoxemic respiratory failure due to acute exacerbation of bronchial asthma with bilateral community-acquired pneumonia. Continue patient on Zithromax 500 mg IV piggyback every 24 hours, continue ceftriaxone 1 g IV piggyback every 24 hours,, obtain sputum culture, procalcitonin level, continue oxygen support, continue Solu-Medrol 60 mg IV push every 6 hours, continue with nebulized treatment DuoNeb 3 mL nebulization 4 times every day, pulmonary consultation, monitor the patient very closely. 2. Acute diastolic heart failure in a patient with a prior history of moderate mitral regurgitation mild aortic regurgitation and mild aortic stenosis. Obtain echocardiogram, start the patient on Lasix 60 mg IV push every 12 hours, monitor input and output and daily weight, monitor electrolytes. 3. Acute kidney injury likely due to vasomotor nephropathy as well as diuresis. Monitor the patient input and output and daily weight, monitor the patient electrolytes in the next 24 hours, 4. Coronary artery disease status post left heart catheterization back in July 15, 2018 showed mild disease of LAD. Continue patient on aspirin 81 mg once every day, atorvastatin 80 mg once a day, monitor lipid panel, keep LDL 55-70. 5. Hypertension and hypertensive cardiovascular disease. Continue patient on amlodipine 10 mg orally once every day, patient is allergic to beta-blockers as well as MARISSA and ARB's. 6. Mixed hyperlipidemia. Continue patient on atorvastatin 80 mg once every day, monitor lipid panel, keep LDL 55-70. 7. Diabetes mellitus type 2 with hyperglycemia and diabetic polyneuropathy. Continue patient on Levemir 55 units at bedtime along with NovoLog 28 units before breakfast and lunch and 30 units before bedtime along with a sliding scale insulin. 8. Glaucoma. Continue current eyedrops. 9. Diabetic polyneuropathy. Continue duloxetine 120 mg orally at bedtime. 10. DVT prophylaxis. Continue patient on Lovenox 30 mg subcutaneously every 24 hours. 11. GI prophylaxis. Continue Protonix 40 mg once every day. 12. Admit to inpatient. Estimated length of stay 2 midnights. 13. Full code. Past Medical History Past Medical History: Asthma, Diabetes Mellitus, GERD/Reflux, Hyperlipidemia, Hypertension, Osteoarthritis (OA), Pneumonia Additional Past Medical History / Comment(s): MIGRAINES, spinal stenosis, heart murmer, hx stool incontinence, osteoporosis, on rx for UTI, has marita sensor on rt arm History of Any Multi-Drug Resistant Organisms: ESBL Date of last positivie culture/infection: 03/04/15 MDRO Source:: [facility]-ESBL E.coli Past Surgical History: Back Surgery, Section, Cholecystectomy, Hernia Repair, Hysterectomy Additional Past Surgical History / Comment(s): sinus surgery/deviated septum, D&C's, Past Anesthesia/Blood Transfusion Reactions: Family History of Problems w/ Anesthesia Additional Past Anesthesia/Blood Transfusion Reaction / Comment(s): mother -PONV Past Psychological History: No Psychological Hx Reported Smoking Status: Never smoker Past Alcohol Use History: None Reported Past Drug Use History: None Reported - Past Family History Mother Family Medical History: Cancer Medications and Allergies Home Medications Medication Instructions Recorded Confirmed Type Aspirin 81 mg PO DAILY 01/07/14 03/19/23 History DULoxetine HCL [Cymbalta] 120 mg PO HS 01/07/14 03/19/23 History Latanoprost Ophth [Xalatan 0.005%] 1 drop BOTH EYES HS 01/07/14 03/19/23 History Albuterol Inhaler [Ventolin Hfa 1 - 2 puff INHALATION RT-Q6H PRN 07/18/17 03/19/23 History Inhaler] Insulin Aspart [NovoLOG Flexpen] 28 units SQ W/BRKFST 06/11/18 03/19/23 History Insulin Aspart [NovoLOG Flexpen] 28 units SQ W/LUNCH 06/11/18 03/19/23 History Insulin Aspart [NovoLOG Flexpen] 30 units SQ W/SUPPER 06/11/18 03/19/23 History Insulin Glargine,Hum.rec.anlog 55 unit SQ HS 06/11/18 03/19/23 History [Basaglar Kwikpen U-100] Montelukast [Singulair] 10 mg PO HS 06/11/18 03/19/23 History Albuterol Nebulized [Ventolin 2.5 mg INHALATION RT-Q6H PRN 03/19/23 03/19/23 History Nebulized] Ascorbic Acid [Vitamin C] 1,000 mg PO DAILY 03/19/23 03/19/23 History Brimonidine Tartrate [Alphagan P 1 drops BOTH EYES BID 03/19/23 03/19/23 History 0.2% Ophth Soln] Cholecalciferol [Vitamin D3 (25 25 mcg PO DAILY 03/19/23 03/19/23 History Mcg = 1000 Iu)] Dorzolamide HCl/Pf [Dorzolamide 2% 1 drop BOTH EYES BID 03/19/23 03/19/23 History Eye Drop] Insulin Aspart [NovoLOG Flexpen] See Protocol SQ AC-TID PRN 03/19/23 03/19/23 History Magnesium Oxide [Magox 400] 400 mg PO DAILY PRN 03/19/23 03/19/23 History Rosuvastatin Calcium [Crestor] 40 mg PO HS 03/19/23 03/19/23 History Vitamin B Complex 1 cap PO DAILY 03/19/23 03/19/23 History amLODIPine [Norvasc] 10 mg PO HS 03/19/23 03/19/23 History Allergies Allergy/AdvReac Type Severity Reaction Status Date / Time ezetimibe [From Zetia] Allergy Diarrhea Verified 03/19/23 16:13 metformin Allergy Nausea & Verified 03/19/23 16:13 Vomiting metoprolol Allergy Cough Verified 03/19/23 16:13 Sulfa (Sulfonamide Allergy Rash/Hives Verified 03/19/23 16:13 Antibiotics) Beta-Blockers AdvReac coughing Verified 03/19/23 16:13 (Beta-Adrenergic Bloc exenatide [From Byetta] AdvReac Nausea & Verified 03/19/23 16:13 Vomiting liraglutide [From Victoza] AdvReac Nausea & Verified 03/19/23 16:13 Vomiting pioglitazone [From Actos] AdvReac weight gain Verified 03/19/23 16:13 tape Allergy Rash/Hives Uncoded 03/19/23 16:13 Physical Exam Vitals: Vital Signs Temp Pulse Resp BP Pulse Ox 03/19/23 18:30 99.8 F H 77 24 163/84 96 03/19/23 16:13 89 24 174/82 97 03/19/23 15:42 84 03/19/23 15:20 76 03/19/23 14:08 99.1 F 83 28 H 159/81 88 L Intake and Output 03/19/23 03/19/23 03/19/23 06:59 14:59 22:59 Other: Weight 109.316 kg Results CBC & Chem 7: 03/20/23 07:27 03/20/23 07:27 Labs: Abnormal Lab Results - Last 24 Hours (Table) 03/19/23 03/19/23 03/19/23 Range/Units 14:13 14:13 14:13 RBC 3.41 L (3.80-5.40) m/uL Hgb 9.2 L (11.4-16.0) gm/dL Hct 29.1 L (34.0-46.0) % RDW 15.8 H (11.5-15.5) % Neutrophils # 8.0 H (1.3-7.7) k/uL Lymphocytes # 0.9 L (1.0-4.8) k/uL D-Dimer 0.84 H (<0.60) mg/L FEU Sodium 129 L (137-145) mmol/L BUN 46 H (7-17) mg/dL Creatinine 1.21 H (0.52-1.04) mg/dL Glucose 448 H (74-99) mg/dL POC Glucose (mg/dL) (70-110) mg/dL Troponin I (0.000-0.034) ng/mL 03/19/23 03/19/23 Range/Units 14:13 18:09 RBC (3.80-5.40) m/uL Hgb (11.4-16.0) gm/dL Hct (34.0-46.0) % RDW (11.5-15.5) % Neutrophils # (1.3-7.7) k/uL Lymphocytes # (1.0-4.8) k/uL D-Dimer (<0.60) mg/L FEU Sodium (137-145) mmol/L BUN (7-17) mg/dL Creatinine (0.52-1.04) mg/dL Glucose (74-99) mg/dL POC Glucose (mg/dL) 439 H (70-110) mg/dL Troponin I 0.037 H* (0.000-0.034) ng/mL
--- NOTE | 2023-03-20 19:36 | P.PN ---
Subjective Progress Note Date: 03/20/23 HISTORY OF PRESENT ILLNESS: This is a 67-year-old female with a previous medical history signif icant for hypertension and hypertensive cardiovascular disease, hyperlipidemia, diabetes mellitus type 2 with hyperglycemia diabetic polyneuropathy, allergic rhinitis, vitamin D deficiency, degenerative disc disease of the lumbar spine status post discectomy back in August 2018, coronary artery disease status post left heart catheterization back in 07/15/2018 that showed mild disease in the LAD, moderate mitral regurgitation as well as mild aortic insufficiency has been under the care of Dr. Gordon, patient developed to have a significant RSV infection back on March 17, she came to the emergency department at [facility] and she was discharged home with conservative management and supp ortive care, patient became quite short of breath, with increased coughing and increased phlegm production, she ended up going to the emergency department at [facility], she was quite wheezy, she did receive Solu-Medrol 125 mg IV push, nebulized treatment [id number], without any improvement, she was placed on oxygen, and she was admitted to the hospital for evaluation, her chest x-ray initially showed pulmonary vascular congestion with cardiomegaly, patient could not go for CT angiography of the chest that was negative for pulmonary embolism but did show bilateral patchy infiltrate in both lungs suggestive of atypical pneumonia versus atelectasis, patient anyway was started on IV antibiotic in the form of Levaquin 750 mg IV piggyback every 4 8 hours, and Zosyn 3.375 g piggyback every 8 hours, she was kept on Solu-Medrol 60 mg IV push every 6 hours, pulmonary consultation as well as cardiology consultation was obtained, patient did present with significant edema in both lower extremities she was placed on Lasix 60 mg IV push every 12 hours as well, echocardiogram was obtaine d, cardiology consultation was obtained as well. 03/20: Patient sitting up in bed she continues to be somewhat short of breath, she is better than yesterday, she is diuresing very well, she denies any chest pain at this time she continues to have some coughing, minimal phlegm production, she has no pleurisy, CT angiography of the chest is negative for pulmonary embolism, her her creatinine is up to 1.5, her BUN is 55, monitor the patient very closely, recheck her electrolytes tomorrow morning, her blood glucose level in the morning is down to 178, patient had an echocardiogram the results still pending at the time of dictation, she was seen in consultation by pulmonary medicine and cardiology, REVIEW OF SYSTEMS: Constitutional: No documented fever, no chills, no night sweats. No weight change. No weakness, fatigue or lethargy. No daytime sleepiness. EENT: No headache. No blurred vision or double vision, no loss of vision. No loss of Hearing, no ringing in the ears, no dizziness. No nasal drainage or congestion. No epistaxis. No sore throat. Lungs: positive for shortness of breath, positive for cough, positive for sputum production. positive for wheezing. Reports dyspnea with activity. Cardiovascular: No chest pain, positive for lower extremity edema. No palpitations. No paroxysmal nocturnal dyspnea. positive for orthopnea. No lightheadedness or dizziness. No syncopal episodes. Abdominal: Reports abdominal pain. No nausea, vomiting. positive for diarrhea. No constipation. No bloody or tarry stools reports loss of appetite. Genitourinary: No dysuria, increased frequency, urgency. No urinary retention. Musculoskeletal: No myalgias. No muscle weakness, no gait dysfunction, no frequent falls. positive for back pain. No neck pain. Integumentary: No wounds, no lesions. No rash or pruritus. No unusual bruising. No change in hair or nails. Neurologic: No aphasia. No facial droop. No change in mentation. No head injury. No headache. No paralysis. No paresthesia. Psychiatric: No depression. No anxiety. No mood swings. Endocrine: No abnormal blood sugars. No weight change. PHYSICAL EXAMINATION: General: 67-year-old female sitting up in bed in minimal respiratory distress HEENT: Head is atraumatic, normocephalic, pupils were equal round reactive to light and recommendation, extraocular muscle movement were intact, sclera n onicteric, conjunctivae were pale, mucous membranes of the mouth are somewhat dry. Neck: Supple, no JVP, normal carotid upstroke bilaterally, no lymphadenopathy. Chest: Decreased breath sounds at the bases, few rhonchi, moderate expiratory wheezes, no chest wall tenderness, no intercostal retractions. Heart: First heart sound is normal, second heart sounds normal there is systolic ejection murmur 2/6 located in the right second intercostal space radiating to the base of the neck. Abdomen: Soft, nontender, nondistended, positive bowel sounds. Extremities: There is +2 edema no calf tenderness DP +2 bilaterally. Neurologic examination: Patient is awake alert and oriented x3, cranial nerves II-12 appear grossly intact, muscle power were 5 out of 5 in upper extremities and 5 out of 5 in bilateral lower extremities, deep tendon reflexes normal bilaterally. ASSESSMENT AND PLAN: 1. Acute hypoxemic respiratory failure due to acute exacerbation of bronchial asthma with bilateral community-acquired pneumonia. Continue patient on Zithromax 500 mg IV piggyback every 24 hours, continue ceftriaxone 1 g IV piggyback every 24 hours,, obtain sputum culture, procalcitonin level, continue oxygen support, continue Solu-Medrol 60 mg IV push every 6 hours, continue with nebulized treatment DuoNeb 3 mL nebulization 4 times every day, pulmonary consultation, monitor the patient very closely. 2. Acute diastolic heart failure in a patient with a prior history of moderate mitral regurgitation mild aortic regurgitation and mild aortic stenosis. Obtain echocardiogram, start the patient on Lasix 60 mg IV push every 12 hours, monitor input and output and daily weight, monitor electrolytes. 3. Acute kidney injury likely due to vasomotor nephropathy as well as diuresis. Monitor the patient input and output and daily weight, monitor the patient electrolytes in the next 24 hours, 4. Coronary artery disease status post left heart catheterization back in July 15, 2018 showed mild disease of LAD. Continue patient on aspirin 81 mg once every day, atorvastatin 80 mg once a day, monitor lipid panel, keep LDL 55-70. 5. Hypertension and hypertensive cardiovascular disease. Continue patient on amlodipine 10 mg orally once every day, patient is allergic to beta-blockers as well as MARISSA and ARB's. 6. Mixed hyperlipidemia. Continue patient on atorvastatin 80 mg once every day, monitor lipid panel, keep LDL 55-70. 7. Diabetes mellitus type 2 with hyperglycemia and diabetic polyneuropathy. Continue patient on Levemir 55 units at bedtime along with NovoLog 28 units before breakfast and lunch and 30 units before bedtime along with a sliding scale insulin. 8. Glaucoma. Continue current eyedrops. 9. Diabetic polyneuropathy. Continue duloxetine 120 mg orally at bedtime. 10. DVT prophylaxis. Continue patient on Lovenox 30 mg subcutaneously every 24 hours. 11. GI prophylaxis. Continue Protonix 40 mg once every day. Objective - Vital Signs Vital signs: Vital Signs Temp 97.7 F 03/20/23 16:13 Pulse 70 03/20/23 16:46 Resp 19 03/20/23 16:13 BP 158/70 03/20/23 16:13 Pulse Ox 99 03/20/23 16:13 FiO2 Intake & Output 03/20/23 03/20/23 03/21/23 06:59 18:59 06:59 Weight 109.316 kg Other: Voiding Method Toilet - Labs CBC & Chem 7: 03/20/23 07:27 03/20/23 07:27 Labs: Abnormal Lab Results - Last 24 Hours (Table) 03/19/23 03/19/23 03/19/23 Range/Units 19:09 19:09 20:33 RBC (4.10-5.20) X 10*6/uL Hgb (12.0-15.0) g/dL Hct (37.2-46.3) % MCH (27.0-32.0) pg MCHC (32.0-37.0) g/dL RDW (11.5-14.5) % Eosinophils # (0.04-0.35) X 10*3/uL Sodium 129 L (137-145) mmol/L BUN 44 H (7-17) mg/dL Creatinine 1.31 H (0.52-1.04) mg/dL Glucose 403 H (74-99) mg/dL POC Glucose (mg/dL) 426 H (70-110) mg/dL Hemoglobin A1c (<=6.0) % Troponin I 0.047 H* (0.000-0.034) ng/mL Procalcitonin (0.02-0.09) ng/mL 03/20/23 03/20/23 03/20/23 Range/Units 00:59 07:27 07:27 RBC 3.31 L (4.10-5.20) X 10*6/uL Hgb 8.7 L (12.0-15.0) g/dL Hct 27.9 L (37.2-46.3) % MCH 26.3 L (27.0-32.0) pg MCHC 31.2 L (32.0-37.0) g/dL RDW 15.3 H (11.5-14.5) % Eosinophils # 0 L (0.04-0.35) X 10*3/uL Sodium (137-145) mmol/L BUN (7-17) mg/dL Creatinine (0.52-1.04) mg/dL Glucose (74-99) mg/dL POC Glucose (mg/dL) (70-110) mg/dL Hemoglobin A1c 11.9 H (<=6.0) % Troponin I (0.000-0.034) ng/mL Procalcitonin 0.31 H (0.02-0.09) ng/mL 03/20/23 03/20/23 03/20/23 Range/Units 07:27 07:55 12:29 RBC (4.10-5.20) X 10*6/uL Hgb (12.0-15.0) g/dL Hct (37.2-46.3) % MCH (27.0-32.0) pg MCHC (32.0-37.0) g/dL RDW (11.5-14.5) % Eosinophils # (0.04-0.35) X 10*3/uL Sodium 133 L (137-145) mmol/L BUN 55 H (7-17) mg/dL Creatinine 1.54 H (0.52-1.04) mg/dL Glucose 151 H (74-99) mg/dL POC Glucose (mg/dL) 178 H 231 H (70-110) mg/dL Hemoglobin A1c (<=6.0) % Troponin I (0.000-0.034) ng/mL Procalcitonin (0.02-0.09) ng/mL 03/20/23 Range/Units 16:21 RBC (4.10-5.20) X 10*6/uL Hgb (12.0-15.0) g/dL Hct (37.2-46.3) % MCH (27.0-32.0) pg MCHC (32.0-37.0) g/dL RDW (11.5-14.5) % Eosinophils # (0.04-0.35) X 10*3/uL Sodium (137-145) mmol/L BUN (7-17) mg/dL Creatinine (0.52-1.04) mg/dL Glucose (74-99) mg/dL POC Glucose (mg/dL) 235 H (70-110) mg/dL Hemoglobin A1c (<=6.0) % Troponin I (0.000-0.034) ng/mL Procalcitonin (0.02-0.09) ng/mL
[2023-03-20 20:11] LABS: Glucose,Whole Blood 171 mg/dL (70-110)
[2023-03-20] MEDS: SODIUM CHLORIDE 0.65% NASAL SPRAY 44 ML BTL NASAL SCH (22:17)
[2023-03-20] MEDS: FLUTICASONE 50MCG/SPRAY NASAL 16GM EA NOSTRIL SCH (22:17)
[2023-03-21 05:53] LABS: Glucose,Whole Blood 265 mg/dL (70-110)
[2023-03-21 07:27] LABS: Glucose,Whole Blood 215 mg/dL (70-110)
[2023-03-21 08:21] LABS: Glucose,Whole Blood 183 mg/dL (70-110)
[2023-03-21] MEDS: ENOXAPARIN 30 MG/0.3 ML SYRINGE SQ SCH (08:45)
[2023-03-21] MEDS: hydrALAZINE HCL 50 MG TAB PO SCH (08:52)
[2023-03-21 09:07] LABS: Basophils % (A) 0 %; Eosinophils % (A) 0 %; HCT 28.3 % (34.0-46.0); HGB 8.9 gm/dL (11.4-16.0); Hypochromasia Moderate; Lymphocytes % (A) 7 %; MCH 26.8 pg (25.0-35.0); MCHC 31.3 g/dL (31.0-37.0); MCV 85.5 fL (80.0-100.0); Mean Platelet Volume 8.2; Monocytes # (A) 0.3 k/uL (0-1.0); Monocytes % (A) 2 %; Neutrophils # (A) 12.6 k/uL (1.3-7.7); Neutrophils % (A) 90 %; Platelet Count 303 k/uL (150-450); RBC 3.31 m/uL (3.80-5.40); RDW 15.4 % (11.5-15.5); WBC 13.9 k/uL (3.8-10.6)
[2023-03-21 09:09] LABS: ALT 21 U/L (4-34); AST 30 U/L (14-36); African American GFR (CKD) 34 (>60 ml/min/1.73 sqM); Albumin 3.4 g/dL (3.5-5.0); Alkaline Phosphatase 81 U/L (38-126); Anion Gap 9 mmol/L; Blood Urea Nitrogen 66 mg/dL (7-17); Calcium 8.6 mg/dL (8.4-10.2); Carbon Dioxide 25 mmol/L (22-30); Chloride 99 mmol/L (98-107); Glucose 187 mg/dL (74-99); Non-African American GFR(CKD) 29 (>60 ml/min/1.73 sqM); Potassium 4.2 mmol/L (3.5-5.1); Sodium 133 mmol/L (137-145); Total Bilirubin 0.3 mg/dL (0.2-1.3); Total Protein 6.1 g/dL (6.3-8.2)
--- NOTE | 2023-03-21 10:14 | CA ---
Transthoracic Echo Report Name: Janie Triana Age: 67 Gender: F : 1955 Exam Date: 03/20/2023 14:55 Exam Location: [facility] Ht (in): 62 Wt (lb): 241 Ordering Physician: Liang Crowley MD Attending/Referring Phys: Electrotype Caster Radha Andres RDCS Procedure CPT: Indications: chf Cardiac Hx: Technical Quality: Fair Contrast 1: Total Dose (mL): Contrast 2: Total Dose (mL): MEASUREMENTS (Male / Female) Normal Values 2D ECHO LV Diastolic Diameter PLAX 5.0 cm 4.2 - 5.9 / 3.9 - 5.3 cm LV Systolic Diameter PLAX 3.7 cm IVS Diastolic Thickness 0.9 cm 0.6 - 1.0 / 0.6 - 0.9 cm LVPW Diastolic Thickness 0.8 cm 0.6 - 1.0 / 0.6 - 0.9 cm LV Relative Wall Thickness 0.3 Aortic Root Diameter 3.0 cm LA Systolic Diameter LX 5.1 cm 3.0 - 4.0 / 2.7 - 3.8 cm DOPPLER AV Peak Velocity 245.6 cm/s AV Peak Gradient 24.1 mmHg AV Mean Velocity 180.1 cm/s AV Mean Gradient 14.4 mmHg AV Velocity Time Integral 55.2 cm LVOT Peak Velocity 97.9 cm/s LVOT Peak Gradient 3.8 mmHg LVOT Velocity Time Integral 26.2 cm Mitral E Point Velocity 117.1 cm/s Mitral A Point Velocity 84.6 cm/s Mitral E to A Ratio 1.4 MV Deceleration Time 170.2 ms MV E' Velocity 7.9 cm/s Mitral E to MV E' Ratio 14.8 TR Peak Velocity 315.8 cm/s TR Peak Gradient 39.9 mmHg PV Peak Velocity 97.0 cm/s PV Peak Gradient 3.8 mmHg FINDINGS Left Ventricle Left ventricular ejection fraction is estimated at 50-55 %. Mild increased left ventricular wall thickness Right Ventricle Right ventricle not well visualized. Right Atrium Right atrium not well visualized. Left Atrium Severely increased left atrial diameter. Mitral Valve No mitral regurgitation. Aortic Valve Mild aortic stenosis with a peak gradient of 24 mmHg and a mean gradient of 14 mmHg. Tricuspid Valve Mild tricuspid regurgitation. Pulmonic Valve Pulmonic valve not well visualized. Pericardium Normal pericardium. Aorta Aortic root and proximal ascending aorta not well visualized. CONCLUSIONS Mild increased left ventricular wall thickness Left ventricular ejection fraction 50-55% Mild aortic stenosis Moderately diagonal left atrium Mild tricuspid regurgitation Previewed by: Dr. Azael Kimbrough DO (Electronically Signed) Final Date: 21 March 2023 10:13
[2023-03-21 11:38] LABS: Glucose,Whole Blood 228 mg/dL (70-110)
--- NOTE | 2023-03-21 13:08 | P.PN ---
Subjective Progress Note Date: 03/21/23 Principal diagnosis: Acute hypoxic respiratory failure with acute exacerbation of bronchial asthma and RSV infection I am seeing this patient in consultation today 03/20/2023 in the emergency room after she presented with ongoing worsening URI-like symptoms. Patient states that she was diagnosed with RSV infection on March 17. Patient is a 67-year-old white female with past medical history significant for chronic bronchial asthma, allergic rhinitis, diabetes mellitus, hypertension, hyperlipidemia, among other things. Her primary care provider is Dr. Crowley. She has been seen previously in the pulmonary office, but it has been almost 3 years since her last visit. States that she has had ongoing and worsening URI- like symptoms over the past month. This started with runny nose and clear nasal drainage, intermittent cough with minimal sputum production, fatigue/malaise, and subjective fevers. She was treated outpatient at a local urgent care center with a steroid taper. She states that this did not help.. Her symptoms have progressively worsened, and she is now short of breath, which is particularly worse with any type of exertion. She has had diarrhea over the last 3 days, and reduced appetite. Denies any bloody bowel movements. denies any nausea or vomiting. Denies abdominal pain. Denies any chest pain heart palpitations, or syncope. Denies orthopnea or PND. Admits lower extremity swelling. Patient presented to the emergency room yesterday afternoon with above-mentioned symptoms. Chest CTA on arrival was negative for any pulmonary embolism. It did show patchy bilateral lung infiltrates suspicious for atypical pneumonia/viral pneumonia. CBC on arrival did not show any leukocytosis. WBC count 8.2, hemoglobin 8.9, hematocrit 28.7, platelets 260. BMP on arrival: Sodium 129, potassium 4.4, chloride 99, serum bicarb 25, BUN 44, creatinine 1.31, glucose 403. Troponins mildly elevated, and peaked at 0.047. NT proBNP was elevated at 5540. Patient was given a dose of Lasix in the emergency room and started on Lasix 60 mg twice daily. Echocardiogram is pending for the morning. Patient is currently resting in bed, on 3 L/min nasal cannula, in no acute distress. She did have a low-grade temperature of 99.8 F on arrival. Vital signs are stable. Patient was reevaluated today on 03/21/2023, feeling much better today, breathing a lot easier, less cough less wheezing less shortness of breath. Nonetheless she is not back to her baseline. Patient is on room air, O2 sats is 96%. Labs today showed leukocytosis with WBC count of 13.9 hemoglobin 8.9 basic metabolic profile is normal however her BUN is 66 creatinine 1.77 slightly worse compared to creatinine on admission of 1.21 May have to consider holding or cutting down on the dose of Lasix. Patient fluid balance is negative almost 1.5 L since admission. Objective - Vital Signs Vital signs: Vital Signs Temp 97.8 F 03/21/23 03:12 Pulse 72 03/21/23 12:52 Resp 16 03/21/23 11:40 BP 191/84 03/21/23 11:40 Pulse Ox 96 03/21/23 11:40 FiO2 Intake & Output 03/20/23 03/21/23 03/21/23 18:59 06:59 18:59 Intake Total 10 225 Output Total 1200 300 Balance -1190 -75 Weight 109.316 kg Intake: IV 10 Invasive Line 1 10 Oral 225 Output: Urine 1200 300 Other: Voiding Method Toilet Toilet - Exam General: The patient is awake and alert, in no distress, and does not appear acutely ill. On room air with O2 sats of 96% Skin: Skin is warm and dry and no rashes or lesions are noted. Eye: Pupils are equal, round and reactive to light, extra-ocular movements are intact; there is normal conjunctiva bilaterally. Ears, nose, mouth and throat: There are moist mucous membranes and no oral lesions. Neck: The neck is supple, there is no tenderness or JVD. Cardiovascular: There is a regular rate and rhythm. No murmur, rub or gallop is appreciated. Respiratory: Scattered rhonchi noted bilaterally more so on forced expiratory maneuver. Gastrointestinal: Soft, non-distended, non-tender abdomen without masses or organomegaly noted. There is no rebound or guarding present. Bowel sounds are unremarkable. Back: There is no tenderness to palpation in the midline. There is no obvious deformity. Musculoskeletal: Normal ROM, no tenderness, There is no pedal edema. There is no calf tenderness or swelling. No cords were appreciated. Neurological: CN II-XII intact, Cranial nerves III through XII are intact. There are no obvious motor or sensory deficits. Coordination appears grossly intact. Speech is normal. Psychiatric: Cooperative, appropriate mood & affect, normal judgment. - Labs CBC & Chem 7: 03/21/23 07:26 03/21/23 07:26 Labs: Abnormal Lab Results - Last 24 Hours (Table) 03/20/23 03/20/23 03/20/23 Range/Units 07:27 16:21 20:08 WBC (3.8-10.6) k/uL RBC 3.31 L (4.10-5.20) X 10*6/uL Hgb 8.7 L (12.0-15.0) g/dL Hct 27.9 L (37.2-46.3) % MCH 26.3 L (27.0-32.0) pg MCHC 31.2 L (32.0-37.0) g/dL RDW 15.3 H (11.5-14.5) % Neutrophils # (1.3-7.7) k/uL Eosinophils # 0 L (0.04-0.35) X 10*3/uL Sodium (137-145) mmol/L BUN (7-17) mg/dL Creatinine (0.52-1.04) mg/dL Glucose (74-99) mg/dL POC Glucose (mg/dL) 235 H 171 H (70-110) mg/dL Total Protein (6.3-8.2) g/dL Albumin (3.5-5.0) g/dL 03/21/23 03/21/23 03/21/23 Range/Units 05:51 07:23 07:26 WBC (3.8-10.6) k/uL RBC (4.10-5.20) X 10*6/uL Hgb (12.0-15.0) g/dL Hct (37.2-46.3) % MCH (27.0-32.0) pg MCHC (32.0-37.0) g/dL RDW (11.5-14.5) % Neutrophils # (1.3-7.7) k/uL Eosinophils # (0.04-0.35) X 10*3/uL Sodium 133 L (137-145) mmol/L BUN 66 H (7-17) mg/dL Creatinine 1.77 H (0.52-1.04) mg/dL Glucose 187 H (74-99) mg/dL POC Glucose (mg/dL) 265 H 215 H (70-110) mg/dL Total Protein 6.1 L (6.3-8.2) g/dL Albumin 3.4 L (3.5-5.0) g/dL 03/21/23 03/21/23 03/21/23 Range/Units 07:26 08:18 11:36 WBC 13.9 H (3.8-10.6) k/uL RBC 3.31 L (4.10-5.20) X 10*6/uL Hgb 8.9 L (12.0-15.0) g/dL Hct 28.3 L (37.2-46.3) % MCH (27.0-32.0) pg MCHC (32.0-37.0) g/dL RDW (11.5-14.5) % Neutrophils # 12.6 H (1.3-7.7) k/uL Eosinophils # (0.04-0.35) X 10*3/uL Sodium (137-145) mmol/L BUN (7-17) mg/dL Creatinine (0.52-1.04) mg/dL Glucose (74-99) mg/dL POC Glucose (mg/dL) 183 H 228 H (70-110) mg/dL Total Protein (6.3-8.2) g/dL Albumin (3.5-5.0) g/dL Microbiology - Last 24 Hours (Table) 03/19/23 14:13 Blood Culture - Preliminary Blood Assessment and Plan Assessment: Impression: Acute exacerbation of the patient's chronic bronchial asthma secondary to acute RSV infection. Atypical pneumonia noted on chest x-ray and CT of the chest, questionable congestive heart failure. Acute hypoxemic respiratory failure, secondary to above Elevated troponins, flat, not consistent with ACS Acute kidney injury, worsened since admission hence we will hold the Lasix for now. Normocytic normochromic anemia, no acute blood loss noted. Type 2 diabetes mellitus, insulin-dependent Hypertension Hyperlipidemia Morbid obesity, with a BMI of 44.1 kg/m Commendation: Continue present course of bronchodilators Continue oxygen and titrate accordingly Continue Symbicort IV Solu-Medrol and DuoNebs. Continue antibiotics with procalcitonin of 0.31 Monitor closely her pulmonary status and chest x-ray follow-up in a.m. Continue to monitor renal status and continue to hold the Lasix for now. Will continue to follow Time with Patient: Less than 30
--- NOTE | 2023-03-21 13:33 | P.PN ---
Subjective Progress Note Date: 03/21/23 Consult reason: congestive heart failure History of present illness: History of present illness: This is a 67-year-old female patient of Dr. Santoro with past medical history of overweight, diabetes, hypertension, dyslipidemia, valvular heart disease with m ild to moderate MR, mild AR, mild . We have been asked to evaluate the patient for CHF. Patient states that she felt like she was run over by a truck with significant fatigue cough and congestion. Patient also complains of fatigue and fevers. Patient also had diarrhea and decreased appetite. She states it started about 3 weeks ago she was using her nebulizer treatment and sitting in lazy boy and sleeping sitting up. She was seen at [facility] [place] on [place]17 and was diagnosed with RSV and discharged home. Patient returned yesterday with same symptoms. Patient has been started on DuoNeb treatments, Pulmicort, IV antibiotics, Lasix 20 mg IV x 1 followed by 60 mg every 12 hours and IV Solu-Medrol. Patient is seen today in the emergency center waiting for a bed on the cardiac stepdown unit. Patient was diagnosed with RSV on Sunday in the emergency center. EKG sinus rhythm with poor R wave progression Chest x-ray: Cardiomegaly and mild pulmonary vascular congestion. CTA of the chest negative for pulmonary embolism WBC 8.2, hemoglobin 8.9, platelet count 260. Sodium 129, potassium 4 4, BUN 44 creatinine 1.31. Blood sugar 403. Troponin 0.037, 0.047, 0.031. Liver f unction test in normal limits. proBNP 5540. Home cardiac medications: Amlodipine 10 mg at bedtime, aspirin 81 mg daily, Crestor 40 mg at bedtime. 03/21 Patient is seen today on the cardiac stepdown unit. Patient seems to be more comfortable with her breathing. Lung sounds are improved. She has been on IV Lasix 60 mg every 12 hours. Patient is a negative fluid balance of 1190. Blood pressure 191/84, heart rate in the 70s. Repeat blood work reveals WBC 13.9, hemoglobin 8.9. Sodium 133, potassium 4.2, BUN 66 and creatinine 1.77. Echocardiogram reveals EF of 50 to 55%, mild aortic stenosis, mild tricuspid regurgitation. Physical examination: Gen: This is a 67-year-old morbidly obese female in no acute distress VS: reviewed HEENT: Head is atraumatic, normocephalic. Pupils equal, round. Sclerae is anicteric. NECK: Supple. No JVD. LUNGS: Diffuse wheezes throughout, no crackles no intercostal retractions. HEART: Regular rate and rhythm. Systolic murmur at right upper and left upper sternal border ABDOMEN: Soft No tenderness. EXTREMITIES: No pedal edema. No calf tenderness. NEUROLOGICAL: Patient is awake, alert and oriented x3. Assessment: Elevated troponin secondary to viral infection Elevated BNP of unclear significance RSV Acute exacerbation of chronic asthma Acute hypoxic respiratory failure Acute kidney injury Diabetes mellitus type 2 insulin requiring Hypertension Hyperlipidemia Morbid obesity with BMI of 44 Plan: Continue patient's home cardiac medications Due to worsening renal function, Lasix discontinued And hydralazine 50 mg 3 times daily for blood pressure control Further recommendations to follow based upon clinical course Nurse practitioner note has been reviewed, I agree with documented findings and plan of care. Patient was seen and examined. Objective - Vital Signs Vital signs: Vital Signs Temp 97.8 F 03/21/23 03:12 Pulse 82 03/21/23 03:12 Resp 18 03/21/23 03:12 BP 178/81 03/21/23 03:12 Pulse Ox 98 03/21/23 03:12 FiO2 Intake & Output 03/20/23 03/21/23 03/21/23 18:59 06:59 18:59 Intake Total 10 225 Output Total 1200 Balance -1190 225 Weight 109.316 kg Intake: IV 10 Invasive Line 1 10 Oral 225 Output: Urine 1200 Other: Voiding Method Toilet Toilet - Labs CBC & Chem 7: 03/21/23 07:26 03/21/23 07:26 Labs: Abnormal Lab Results - Last 24 Hours (Table) 03/20/23 03/20/23 03/20/23 Range/Units 00:59 07:27 07:27 RBC 3.31 L (4.10-5.20) X 10*6/uL Hgb 8.7 L (12.0-15.0) g/dL Hct 27.9 L (37.2-46.3) % MCH 26.3 L (27.0-32.0) pg MCHC 31.2 L (32.0-37.0) g/dL RDW 15.3 H (11.5-14.5) % Eosinophils # 0 L (0.04-0.35) X 10*3/uL Sodium (137-145) mmol/L BUN (7-17) mg/dL Creatinine (0.52-1.04) mg/dL Glucose (74-99) mg/dL POC Glucose (mg/dL) (70-110) mg/dL Hemoglobin A1c 11.9 H (<=6.0) % Procalcitonin 0.31 H (0.02-0.09) ng/mL 03/20/23 03/20/23 03/20/23 Range/Units 07:27 12:29 16:21 RBC (4.10-5.20) X 10*6/uL Hgb (12.0-15.0) g/dL Hct (37.2-46.3) % MCH (27.0-32.0) pg MCHC (32.0-37.0) g/dL RDW (11.5-14.5) % Eosinophils # (0.04-0.35) X 10*3/uL Sodium 133 L (137-145) mmol/L BUN 55 H (7-17) mg/dL Creatinine 1.54 H (0.52-1.04) mg/dL Glucose 151 H (74-99) mg/dL POC Glucose (mg/dL) 231 H 235 H (70-110) mg/dL Hemoglobin A1c (<=6.0) % Procalcitonin (0.02-0.09) ng/mL 03/20/23 03/21/23 03/21/23 Range/Units 20:08 05:51 07:23 RBC (4.10-5.20) X 10*6/uL Hgb (12.0-15.0) g/dL Hct (37.2-46.3) % MCH (27.0-32.0) pg MCHC (32.0-37.0) g/dL RDW (11.5-14.5) % Eosinophils # (0.04-0.35) X 10*3/uL Sodium (137-145) mmol/L BUN (7-17) mg/dL Creatinine (0.52-1.04) mg/dL Glucose (74-99) mg/dL POC Glucose (mg/dL) 171 H 265 H 215 H (70-110) mg/dL Hemoglobin A1c (<=6.0) % Procalcitonin (0.02-0.09) ng/mL 03/21/23 Range/Units 08:18 RBC (4.10-5.20) X 10*6/uL Hgb (12.0-15.0) g/dL Hct (37.2-46.3) % MCH (27.0-32.0) pg MCHC (32.0-37.0) g/dL RDW (11.5-14.5) % Eosinophils # (0.04-0.35) X 10*3/uL Sodium (137-145) mmol/L BUN (7-17) mg/dL Creatinine (0.52-1.04) mg/dL Glucose (74-99) mg/dL POC Glucose (mg/dL) 183 H (70-110) mg/dL Hemoglobin A1c (<=6.0) % Procalcitonin (0.02-0.09) ng/mL Microbiology - Last 24 Hours (Table) 03/19/23 14:13 Blood Culture - Preliminary Blood
[2023-03-21 14:49] VITALS: BMI 44.0
--- NOTE | 2023-03-21 15:11 | CDI ---
Documentation Clarification Form Date: From: Aparna Fernandez Phone: [phone] Admit Date: 03/19/2023 06:42:00 PM Patient Name: Janie Triana Visit Number: [id number] Discharge Date: ATTENTION: The Clinical Documentation Specialists (CDI) and [facility] Coding Staff appreciate your assistance in clarifying documentation. Please respond to the clarification below the line at the bottom and electronically sign. The CDI & [facility] Coding staff will review the response and follow-up if needed. Please note: Queries are made part of the Legal Health Record. If you have any questions, please contact the author of this message via ITS. Dr. Frank Farris Your patient has elevated troponin level noted in the Cardiology Note on 03/20. Please clarify if there is an additional diagnosis and/or clinical significance related to this value. Patient history/risk factors: "67-year-old female with a previous medical history significant for hypertension and hypertensive cardiovascular disease, hyperlipidemia, diabetes mellitus type 2 with hyperglycemia diabetic polyneuropathy, allergic rhinitis, vitamin D deficiency" - Per Medical H&P on 03/19 Clinical indicators: "Lungs: positive for shortness of breath, positive for cough, positive for sputum production. positive for wheezing. Reports dyspnea with activity" "Cardiovascular: No chest pain, positive for lower extremity edema. No palpitations. No paroxysmal nocturnal dyspnea. positive for orthopnea. No lightheadedness or dizziness. No syncopal episodes." - Per Medical H&P on 03/19 "EKG shows a sinus rhythm with occasional PVC at 81 bpm NH interval 135 QRS is 106 QT interval 398 QTc is 436. Patient's EKG shows no ST segment elevation or depression." - Per ED Note on 03/19 "Elevated troponins, flat, not consistent with ACS" - Pulmonology Consult note on 03/20 "EKG sinus rhythm with poor R wave progression" "Troponin 0.037, 0.047, 0.031." "Elevated troponin secondary to viral infection" - Per Cardiology Note on 03/20 Echo: 03/20 "CONCLUSIONS Mild increased left ventricular wall thickness Left ventricular ejection fraction 50-55% Mild aortic stenosis Moderately diagonal left atrium Mild tricuspid regurgitation" Treatment: "Obtain 2-D echocardiogram and Doppler study to assess cardiac structure and function" - Per Cardiology note on 03/20 Is there an additional diagnosis and/or clinical significance related to the above lab result/information: [ ] Non-ischemic with acute myocardial injury [ ] Non-ischemic with chronic myocardial injury [ ] No additional diagnosis/Not clinically significant [ ] Other, please specify [ ] Unable to determine please avoid these kind of queries which are wasteful of physician time once we say troponin elevation is not consistent with ACS - it is no longer relevant for billing MTDD
[2023-03-21 16:32] LABS: Glucose,Whole Blood 112 mg/dL (70-110)
[2023-03-21 20:43] LABS: Glucose,Whole Blood 103 mg/dL (70-110)
[2023-03-22 07:21] LABS: Glucose,Whole Blood 249 mg/dL (70-110)
[2023-03-22] MEDS ORDERED: FUROSEMIDE 10 MG/ML 10 ML VIAL IV SCH (09:00)
--- NOTE | 2023-03-22 09:03 | XR ---
EXAMINATION TYPE: XR chest 1V portable DATE OF EXAM: 03/22/2023 Comparison: 03/19/2023 Clinical History: 67-year-old female pneumonia Findings: Heart upper limits of normal in size. Atherosclerotic arch calcifications. Mild interstitial prominen ce. No consolidation or pleural effusion. Impression: 1. Borderline heart size. 2. Interstitial prominence could reflect bronchitis or asthma. 3. Otherwise, no acute process seen.
[2023-03-22 10:06] LABS: Potassium 4.3 mmol/L (3.5-5.1)
[2023-03-22 10:07] LABS: African American GFR (CKD) 47 (>60 ml/min/1.73 sqM); Anion Gap 10 mmol/L; Blood Urea Nitrogen 66 mg/dL (7-17); Calcium 9.1 mg/dL (8.4-10.2); Carbon Dioxide 26 mmol/L (22-30); Chloride 100 mmol/L (98-107); Glucose 183 mg/dL (74-99); Non-African American GFR(CKD) 40 (>60 ml/min/1.73 sqM); Sodium 136 mmol/L (137-145)
[2023-03-22 11:33] LABS: Glucose,Whole Blood 198 mg/dL (70-110)
--- NOTE | 2023-03-22 12:13 | P.PN ---
Subjective Progress Note Date: 03/22/23 I am seeing this patient in consultation today 03/20/2023 in the emergency room after she presented with ongoing worsening URI-like symptoms. Patient states that she was diagnosed with RSV infection on March 17. Patient is a 67-year-old white female with past medical history significant for chronic bronchial asthma, allergic rhinitis, diabetes mellitus, hypertension, hyperlipidemia, among other things. Her primary care provider is Dr. Crowley. She has been seen previously in the pulmonary office, but it has been almost 3 years since her last visit. States that she has had ongoing and worsening URI- like symptoms over the past month. This started with runny nose and clear nasal drainage, intermittent cough with minimal sputum production, fatigue/malaise, and subjective fevers. She was treated outpatient at a local urgent care center with a steroid taper. She states that this did not help.. Her symptoms have progressively worsened, and she is now short of breath, which is particularly worse with any type of exertion. She has had diarrhea over the last 3 days, and reduced appetite. Denies any bloody bowel movements. denies any nausea or vomiting. Denies abdominal pain. Denies any chest pain heart palpitations, or syncope. Denies orthopnea or PND. Admits lower extremity swelling. Patient presented to the emergency room yesterday afternoon with above-mentioned symptoms. Chest CTA on arrival was negative for any pulmonary embolism. It did show patchy bilateral lung infiltrates suspicious for atypical pneumonia/viral pneumonia. CBC on arrival did not show any leukocytosis. WBC count 8.2, hemoglobin 8.9, hematocrit 28.7, platelets 260. BMP on arrival: Sodium 129, p otassium 4.4, chloride 99, serum bicarb 25, BUN 44, creatinine 1.31, glucose 403. Troponins mildly elevated, and peaked at 0.047. NT proBNP was elevated at 5540. Patient was given a dose of Lasix in the emergency room and started on Lasix 60 mg twice daily. Echocardiogram is pending for the morning. Patient is currently resting in bed, on 3 L/min nasal cannula, in no acute distress. She did have a low-grade temperature of 99.8 F on arrival. Vital signs are stable. Patient was reevaluated today on 03/21/2023, feeling much better today, breathing a lot easier, less cough less wheezing less shortness of breath. Nonetheless she is not back to her baseline. Patient is on room air, O2 sats is 96%. Labs today showed leukocytosis with WBC count of 13.9 hemoglobin 8.9 basic metabolic profile is normal however her BUN is 66 creatinine 1.77 slightly worse compared to creatinine on admission of 1.21 May have to consider holding or cutting down on the dose of Lasix. Patient fluid balance is negative almost 1.5 L since admission. The patient is seen today March 22, 2023 in follow-up on the selective care unit. She is currently resting comfortably in bed. Awake and alert in no acute distress. She denies any worsening shortness of breath, cough or congestion. She is maintaining good O2 saturations in the 90s on room air. Sodium 136. Potassium 4.3. Bicarb 26. BUN 66. Creatinine 1.36. Glucose 183. Chest x-ray reveals borderline heart size. Interstitial prominence which could reflect bronchitis or asthma. No acute process. Echocardiogram revealed preserved left ventricular systolic function with ejection fraction of 50 to 55%. Blood culture revealed no growth. She is continued on DuoNeb and elations, Symbicort, IV Solu-Medrol and Singulair. Antibiotics in the form of ceftriaxone. Lovenox for DVT prophylaxis. Objective - Vital Signs Vital signs: Vital Signs Temp 97.4 F L 03/21/23 20:48 Pulse 88 03/22/23 09:34 Resp 18 03/22/23 09:34 BP 166/75 03/22/23 07:35 Pulse Ox 95 03/22/23 09:25 FiO2 Intake & Output 03/21/23 03/22/23 03/22/23 18:59 06:59 18:59 Intake Total 715 120 240 Output Total 1000 500 Balance -285 -380 240 Weight 109.316 kg 112.1 kg Intake: Oral 715 120 240 Output: Urine 1000 500 Other: Voiding Method Toilet - Exam General: A very pleasant 67-year-old female, awake and alert, in no distress, does not appear acutely ill. On room air. Skin: Skin is warm and dry and no rashes or lesions are noted. Eye: Pupils are equal, round and reactive to light, extra-ocular movements are intact; there is normal conjunctiva bilaterally. Ears, nose, mouth and throat: There are moist mucous membranes and no oral lesions. Neck: The neck is supple, there is no tenderness or JVD. Cardiovascular: There is a regular rate and rhythm. No murmur, rub or gallop is appreciated. Respiratory: Scattered rhonchi noted bilaterally more so on forced expiratory maneuver. Gastrointestinal: Soft, non-tender abdomen without masses or organomegaly noted. There is no rebound or guarding present. Bowel sounds are unremarkable. Back: There is no tenderness to palpation in the midline. There is no obvious deformity. Musculoskeletal: Normal ROM, no tenderness, There is no pedal edema. There is no calf tenderness or swelling. No cords were appreciated. Neurological: CN II-XII intact, Cranial nerves III through XII are intact. There are no obvious motor or sensory deficits. Coordination appears grossly intact. Speech is normal. Psychiatric: Cooperative, appropriate mood & affect, normal judgment. - Labs CBC & Chem 7: 03/21/23 07:26 03/22/23 09:13 Labs: Abnormal Lab Results - Last 24 Hours (Table) 03/21/23 03/22/23 03/22/23 Range/Units 16:30 07:19 09:13 Sodium 136 L (137-145) mmol/L BUN 66 H (7-17) mg/dL Creatinine 1.36 H (0.52-1.04) mg/dL Glucose 183 H (74-99) mg/dL POC Glucose (mg/dL) 112 H 249 H (70-110) mg/dL 03/22/23 Range/Units 11:27 Sodium (137-145) mmol/L BUN (7-17) mg/dL Creatinine (0.52-1.04) mg/dL Glucose (74-99) mg/dL POC Glucose (mg/dL) 198 H (70-110) mg/dL Microbiology - Last 24 Hours (Table) 03/19/23 14:13 Blood Culture - Preliminary Blood Assessment and Plan Assessment: Acute exacerbation of the patient's chronic bronchial asthma secondary to acute RSV infection Atypical pneumonia noted on chest x-ray and CT of the chest, diastolic congestive heart failure Acute hypoxemic respiratory failure, secondary to above Elevated troponins, flat, not consistent with ACS Acute kidney injury, worsened since admission hence we will hold the Lasix for now Normocytic normochromic anemia, no acute blood loss noted. Type 2 diabetes mellitus, insulin-dependent Hypertension Hyperlipidemia Morbid obesity, with a BMI of 45.2 kg/m Plan: The patient was seen and evaluated Medications and labs reviewed Currently stable and on room air Cleared for discharge from the pulmonary standpoint Continue her pulmonary medications Complete a prednisone taper Follow-up in the office in 1 week This patient was seen independently by the pulmonary nurse practitioner addressing pulmonary issues I have personally seen and examined the patient, performed the documentation and the assessment and plan as written. Number of minutes spent on the visit: 24.
[2023-03-22] MEDS: hydrALAZINE HCL 50 MG TAB PO STA (12:19)
--- NOTE | 2023-03-22 13:40 | P.PN ---
Subjective Progress Note Date: 03/22/23 Consult reason: congestive heart failure History of present illness: History of present illness: This is a 67-year-old female patient of Dr. Santoro with past medical history of overweight, diabetes, hypertension, dyslipidemia, valvular heart disease with m ild to moderate MR, mild AR, mild . We have been asked to evaluate the patient for CHF. Patient states that she felt like she was run over by a truck with significant fatigue cough and congestion. Patient also complains of fatigue and fevers. Patient also had diarrhea and decreased appetite. She states it started about 3 weeks ago she was using her nebulizer treatment and sitting in lazy boy and sleeping sitting up. She was seen at [facility] emergency ransom on 03/17 and was diagnosed with RSV and discharged home. Patient returned yesterday with same symptoms. Patient has been started on DuoNeb treatments, Pulmicort, IV antibiotics, Lasix 20 mg IV x 1 followed by 60 mg every 12 hours and IV Solu-Medrol. Patient is seen today in the emergency center waiting for a bed on the cardiac stepdown unit. Patient was diagnosed with RSV on Sunday in the emergency center. EKG sinus rhythm with poor R wave progression Chest x-ray: Cardiomegaly and mild pulmonary vascular congestion. CTA of the chest negative for pulmonary embolism WBC 8.2, hemoglobin 8.9, platelet count 260. Sodium 129, potassium 4 4, BUN 44 creatinine 1.31. Blood sugar 403. Troponin 0.037, 0.047, 0.031. Liver f unction test in normal limits. proBNP 5540. Home cardiac medications: Amlodipine 10 mg at bedtime, aspirin 81 mg daily, Crestor 40 mg at bedtime. 03/21 Patient is seen today on the cardiac stepdown unit. Patient seems to be more comfortable with her breathing. Lung sounds are improved. She has been on IV Lasix 60 mg every 12 hours. Patient is a negative fluid balance of 1190. Blood pressure 191/84, heart rate in the 70s. Repeat blood work reveals WBC 13.9, hemoglobin 8.9. Sodium 133, potassium 4.2, BUN 66 and creatinine 1.77. Echocardiogram reveals EF of 50 to 55%, mild aortic stenosis, mild tricuspid regurgitation. 03/22 Results of echocardiogram have been reviewed with the patient. Yesterday we added hydralazine 50 mg 3 times daily for blood pressure control. Today, blood pressure 135/78, heart rate 88. Pulse ox 98% on room air. Repeat blood work reveals sodium 136, potassium 4.3, BUN 66 and creatinine 1.36. Physical examination: Gen: This is a 67-year-old morbidly obese female in no acute distress VS: reviewed HEENT: Head is atraumatic, normocephalic. Pupils equal, round. Sclerae is anicteric. LUNGS: Clear to auscultation, no crackles no intercostal retractions. HEART: Regular rate and rhythm. Systolic murmur at right upper and left upper sternal border ABDOMEN: Soft No tenderness. EXTREMITIES: No pedal edema. No calf tenderness. NEUROLOGICAL: Patient is awake, alert and oriented x3. Assessment: Elevated troponin secondary to viral infection Elevated BNP of unclear significance RSV Acute exacerbation of chronic asthma Acute hypoxic respiratory failure Acute kidney injury Diabetes mellitus type 2 insulin requiring Hypertension Hyperlipidemia Morbid obesity with BMI of 44 Plan: Continue patient's home cardiac medications Continue hydralazine 50 mg 3 times daily for blood pressure control Patient is cleared for discharge from cardiology May follow-up with Dr. Santoro in 1 to 2 weeks. Nurse practitioner note has been reviewed, I agree with documented findings and plan of care. Patient was seen and examined. Objective - Vital Signs Vital signs: Vital Signs Temp 97.4 F L 03/21/23 20:48 Pulse 88 03/22/23 09:34 Resp 18 03/22/23 09:34 BP 166/75 03/22/23 07:35 Pulse Ox 95 03/22/23 09:25 FiO2 Intake & Output 03/21/23 03/22/23 03/22/23 18:59 06:59 18:59 Intake Total 715 120 240 Output Total 1000 500 Balance -285 -380 240 Weight 109.316 kg 112.1 kg Intake: Oral 715 120 240 Output: Urine 1000 500 Other: Voiding Method Toilet - Labs CBC & Chem 7: 03/21/23 07:26 03/22/23 09:13 Labs: Abnormal Lab Results - Last 24 Hours (Table) 03/21/23 03/21/23 03/22/23 Range/Units 11:36 16:30 07:19 Sodium (137-145) mmol/L BUN (7-17) mg/dL Creatinine (0.52-1.04) mg/dL Glucose (74-99) mg/dL POC Glucose (mg/dL) 228 H 112 H 249 H (70-110) mg/dL 03/22/23 Range/Units 09:13 Sodium 136 L (137-145) mmol/L BUN 66 H (7-17) mg/dL Creatinine 1.36 H (0.52-1.04) mg/dL Glucose 183 H (74-99) mg/dL POC Glucose (mg/dL) (70-110) mg/dL Microbiology - Last 24 Hours (Table) 03/19/23 14:13 Blood Culture - Preliminary Blood
[2023-03-22] MEDS ORDERED: methylPREDNISolone SOD SUCCI 40 MG/ML 1 ML VIAL IV SCH (16:00)
[2023-03-22] MEDS ORDERED: hydrALAZINE HCL 50 MG TAB PO SCH (16:00)
[2023-03-22 16:28] LABS: Glucose,Whole Blood 146 mg/dL (70-110)
[2023-03-22] MEDS: methylPREDNISolone SOD SUCCI 40 MG/ML 1 ML VIAL IV SCH (16:28)
[2023-03-22] MEDS: hydrALAZINE HCL 50 MG TAB PO SCH (16:28)
[2023-03-22 20:04] LABS: Glucose,Whole Blood 123 mg/dL (70-110)
[2023-03-23 06:13] LABS: Glucose,Whole Blood 116 mg/dL (70-110)
[2023-03-23 07:05] LABS: Glucose,Whole Blood 112 mg/dL (70-110)
[2023-03-23] MEDS: ENOXAPARIN 40 MG/0.4 ML SYRINGE SQ SCH (09:47)
[2023-03-23 10:25] VITALS: BP 147/89; RESP 18; TEMP 97.3
[2023-03-23 11:20] LABS: Glucose,Whole Blood 185 mg/dL (70-110)
[2023-03-23 12:00] VITALS: PULSE 90
--- NOTE | 2023-03-23 14:54 | P.PN ---
Subjective Progress Note Date: 03/23/23 Principal diagnosis: Acute hypoxic respiratory failure with acute exacerbation of bronchial asthma and RSV infection I am seeing this patient in consultation today 03/20/2023 in the emergency room after she presented with ongoing worsening URI-like symptoms. Patient states that she was diagnosed with RSV infection on March 17. Patient is a 67-year-old white female with past medical history significant for chronic bronchial asthma, allergic rhinitis, diabetes mellitus, hypertension, hyperlipidemia, among other things. Her primary care provider is Dr. Crowley. She has been seen previously in the pulmonary office, but it has been almost 3 years since her last visit. States that she has had ongoing and worsening URI- like symptoms over the past month. This started with runny nose and clear nasal drainage, intermittent cough with minimal sputum production, fatigue/malaise, and subjective fevers. She was treated outpatient at a local urgent care center with a steroid taper. She states that this did not help.. Her symptoms have progressively worsened, and she is now short of breath, which is particularly worse with any type of exertion. She has had diarrhea over the last 3 days, and reduced appetite. Denies any bloody bowel movements. denies any nausea or vomiting. Denies abdominal pain. Denies any chest pain heart palpitations, or syncope. Denies orthopnea or PND. Admits lower extremity swelling. Patient presented to the emergency room yesterday afternoon with above-mentioned symptoms. Chest CTA on arrival was negative for any pulmonary embolism. It did show patchy bilateral lung infiltrates suspicious for atypical pneumonia/viral pneumonia. CBC on arrival did not show any leukocytosis. WBC count 8.2, hemoglobin 8.9, hematocrit 28.7, platelets 260. BMP on arrival: Sodium 129, potassium 4.4, chloride 99, serum bicarb 25, BUN 44, creatinine 1.31, glucose 403. Troponins mildly elevated, and peaked at 0.047. NT proBNP was elevated at 5540. Patient was given a dose of Lasix in the emergency room and started on Lasix 60 mg twice daily. Echocardiogram is pending for the morning. Patient is currently resting in bed, on 3 L/min nasal cannula, in no acute distress. She did have a low-grade temperature of 99.8 F on arrival. Vital signs are stable. Patient was reevaluated today on 03/21/2023, feeling much better today, breathing a lot easier, less cough less wheezing less shortness of breath. Nonetheless she is not back to her baseline. Patient is on room air, O2 sats is 96%. Labs today showed leukocytosis with WBC count of 13.9 hemoglobin 8.9 basic metabolic profile is normal however her BUN is 66 creatinine 1.77 slightly worse compared to creatinine on admission of 1.21 May have to consider holding or cutting down on the dose of Lasix. Patient fluid balance is negative almost 1.5 L since admission. Reevaluated today on 03/23/2023, patient is feeling much better, breathing a lot easier, I cleared the patient for discharge yesterday, nonetheless patient remains inpatient, and I will clear the patient from the pulmonary perspective for discharge if cleared by other consultants on the case. Objective - Vital Signs Vital signs: Vital Signs Temp 97.3 F L 03/23/23 08:00 Pulse 90 03/23/23 11:51 Resp 18 03/23/23 08:00 BP 147/89 03/23/23 08:00 Pulse Ox 95 03/23/23 08:00 FiO2 Intake & Output 03/22/23 03/23/23 03/23/23 18:59 06:59 18:59 Intake Total 550 575 Output Total 2100 800 Balance 550 -2100 -225 Weight 111.2 kg Intake: Oral 550 575 Output: Urine 2100 800 Other: Voiding Method Toilet - Exam General: The patient is awake and alert, in no distress, and does not appear acutely ill. On room air Skin: Skin is warm and dry and no rashes or lesions are noted. Eye: Pupils are equal, round and reactive to light, extra-ocular movements are intact; there is normal conjunctiva bilaterally. Ears, nose, mouth and throat: There are moist mucous membranes and no oral lesions. Neck: The neck is supple, there is no tenderness or JVD. Cardiovascular: There is a regular rate and rhythm. No murmur, rub or gallop is appreciated. Respiratory: Clear bilaterally today no rhonchi no wheezes Gastrointestinal: Soft, non-distended, non-tender abdomen without masses or organomegaly noted. There is no rebound or guarding present. Bowel sounds are unremarkable. Back: There is no tenderness to palpation in the midline. There is no obvious deformity. Musculoskeletal: Normal ROM, no tenderness, There is no pedal edema. There is no calf tenderness or swelling. No cords were appreciated. Neurological: CN II-XII intact, Cranial nerves III through XII are intact. There are no obvious motor or sensory deficits. Coordination appears grossly intact. Speech is normal. Psychiatric: Cooperative, appropriate mood & affect, normal judgment. - Labs CBC & Chem 7: 03/21/23 07:26 03/22/23 09:13 Labs: Abnormal Lab Results - Last 24 Hours (Table) 03/22/23 03/22/23 03/23/23 Range/Units 16:26 20:02 06:06 POC Glucose (mg/dL) 146 H 123 H 116 H (70-110) mg/dL 03/23/23 03/23/23 Range/Units 07:03 11:19 POC Glucose (mg/dL) 112 H 185 H (70-110) mg/dL Microbiology - Last 24 Hours (Table) 03/19/23 14:13 Blood Culture - Preliminary Blood Assessment and Plan Assessment: Impression: Acute exacerbation of the patient's chronic bronchial asthma secondary to acute RSV infection. Atypical pneumonia noted on chest x-ray and CT of the chest, questionable congestive heart failure. Acute hypoxemic respiratory failure, secondary to above Elevated troponins, flat, not consistent with ACS Acute kidney injury, worsened since admission hence we will hold the Lasix for now. Normocytic normochromic anemia, no acute blood loss noted. Type 2 diabetes mellitus, insulin-dependent Hypertension Hyperlipidemia Morbid obesity, with a BMI of 44.1 kg/m Commendation: Will clear the patient for discharge home assuming she is cleared by other consultants Continue her course of bronchodilators at home. Patient to be seen in the office for follow-up if discharged home today. Time with Patient: Less than 30
--- NOTE | 2023-03-23 15:24 | P.PN ---
Subjective Progress Note Date: 03/21/23 HISTORY OF PRESENT ILLNESS: This is a 67-year-old female with a previous medical history signif icant for hypertension and hypertensive cardiovascular disease, hyperlipidemia, diabetes mellitus type 2 with hyperglycemia diabetic polyneuropathy, allergic rhinitis, vitamin D deficiency, degenerative disc disease of the lumbar spine status post discectomy back in August 2018, coronary artery disease status post left heart catheterization back in 07/15/2018 that showed mild disease in the LAD, moderate mitral regurgitation as well as mild aortic insufficiency has been under the care of Dr. Gordon, patient developed to have a significant RSV infection back on March 17, she came to the emergency department at [facility] and she was discharged home with conservative management and supp ortive care, patient became quite short of breath, with increased coughing and increased phlegm production, she ended up going to the emergency department at [facility], she was quite wheezy, she did receive Solu-Medrol 125 mg IV push, nebulized treatment [id number], without any improvement, she was placed on oxygen, and she was admitted to the hospital for evaluation, her chest x-ray initially showed pulmonary vascular congestion with cardiomegaly, patient could not go for CT angiography of the chest that was negative for pulmonary embolism but did show bilateral patchy infiltrate in both lungs suggestive of atypical pneumonia versus atelectasis, patient anyway was started on IV antibiotic in the form of Levaquin 750 mg IV piggyback every 4 8 hours, and Zosyn 3.375 g piggyback every 8 hours, she was kept on Solu-Medrol 60 mg IV push every 6 hours, pulmonary consultation as well as cardiology consultation was obtained, patient did present with significant edema in both lower extremities she was placed on Lasix 60 mg IV push every 12 hours as well, echocardiogram was obtaine d, cardiology consultation was obtained as well. 03/20: Patient sitting up in bed she continues to be somewhat short of breath, she is better than yesterday, she is diuresing very well, she denies any chest pain at this time she continues to have some coughing, minimal phlegm production, she has no pleurisy, CT angiography of the chest is negative for pulmonary embolism, her her creatinine is up to 1.5, her BUN is 55, monitor the patient very closely, recheck her electrolytes tomorrow morning, her blood glucose level in the morning is down to 178, patient had an echocardiogram the results still pending at the time of dictation, she was seen in consultation by pulmonary medicine and cardiology, 03/21: Echocardiogram reveals EF of 50 to 55% with mild aortic stenosis, unchanged from previous, the results have been reviewed with the patient, patient is feeling a bit better, she continues to have some coughing, minimal phlegm production, she continues to have some auditory wheezes, she continues to have swelling in both lower extremities, cardiology decrease Lasix to 60 mg IV push every 24 hours, we will continue to monitor input and output and daily weight, REVIEW OF SYSTEMS: Constitutional: No documented fever, no chills, no night sweats. No weight change. No weakness, fatigue or lethargy. No daytime sleepiness. EENT: No headache. No blurred vision or double vision, no loss of vision. No loss of Hearing, no ringing in the ears, no dizziness. No nasal drainage or congestion. No epistaxis. No sore throat. Lungs: positive for shortness of breath, positive for cough, positive for sputum production. positive for wheezing. Reports dyspnea with activity. Cardiovascular: No chest pain, positive for lower extremity edema. No palpitations. No paroxysmal nocturnal dyspnea. positive for orthopnea. No lightheadedness or dizziness. No syncopal episodes. Abdominal: Reports abdominal pain. No nausea, vomiting. positive for diarrhea. No constipation. No bloody or tarry stools reports loss of appetite. Genitourinary: No dysuria, increased frequency, urgency. No urinary retention. Musculoskeletal: No myalgias. No muscle weakness, no gait dysfunction, no freq uent falls. positive for back pain. No neck pain. Integumentary: No wounds, no lesions. No rash or pruritus. No unusual bruising. No change in hair or nails. Neurologic: No aphasia. No facial droop. No change in mentation. No head injury. No headache. No paralysis. No paresthesia. Psychiatric: No depression. No anxiety. No mood swings. Endocrine: No abnormal blood sugars. No weight change. PHYSICAL EXAMINATION: General: 67-year-old female sitting up in bed in minimal respiratory distress HEENT: Head is atraumatic, normocephalic, pupils were equal round reactive to light and recommendation, extraocular muscle movement were intact, sclera nonicteric, conjunctivae were pale, mucous membranes of the mouth are somewhat dry. Neck: Supple, no JVP, normal carotid upstroke bilaterally, no lymphadenopathy. Chest: Decreased breath sounds at the bases, few rhonchi, moderate expiratory wheezes, no chest wall tenderness, no intercostal retractions. Heart: First heart sound is normal, second heart sounds normal there is systolic ejection murmur 2/6 located in the right second intercostal space radiating to the base of the neck. Abdomen: Soft, nontender, nondistended, positive bowel sounds. Extremities: There is +2 edema no calf tenderness DP +2 bilaterally. Neurologic examination: Patient is awake alert and oriented x3, cranial nerves II-12 appear grossly intact, muscle power were 5 out of 5 in upper extremities and 5 out of 5 in bilateral lower extremities, deep tendon reflexes normal bilaterally. ASSESSMENT AND PLAN: 1. Acute hypoxemic respiratory failure due to acute exacerbation of bronchial asthma with bilateral community-acquired pneumonia. Continue patient on Zithromax 500 mg IV piggyback every 24 hours, continue ceftriaxone 1 g IV piggyback daily l, continue oxygen support, continue Solu-Medrol 40 mg IV push every 8 hours, continue with nebulized treatment DuoNeb 3 mL nebulization 4 times every day, pulmonary consultation, monitor the patient very closely. 2. Acute diastolic heart failure in a patient with a prior history of moderate mitral regurgitation mild aortic regurgitation and mild aortic stenosis. patient on Lasix 60 mg IV push every 24 hours, monitor input and output and daily weight, monitor electrolytes. 3. Acute kidney injury likely due to vasomotor nephropathy as well as diuresis. Monitor the patient input and output and daily weight, monitor the patient electrolytes in the next 24 hours, 4. Coronary artery disease status post left heart catheterization back in July 15, 2018 showed mild disease of LAD. Continue patient on aspirin 81 mg once every day, atorvastatin 80 mg once a day, monitor lipid panel, keep LDL 55-70. 5. Hypertension and hypertensive cardiovascular disease. Continue patient on amlodipine 10 mg orally once every day, patient is allergic to beta-blockers as well as MARISSA and ARB's. 6. Mixed hyperlipidemia. Continue patient on atorvastatin 80 mg once every day, monitor lipid panel, keep LDL 55-70. 7. Diabetes mellitus type 2 with hyperglycemia and diabetic polyneuropathy. Continue patient on Levemir 55 units at bedtime along with NovoLog 28 units before breakfast and lunch and 30 units before bedtime along with a sliding scale insulin. 8. Glaucoma. Continue current eyedrops. 9. Diabetic polyneuropathy. Continue duloxetine 120 mg orally at bedtime. 10. DVT prophylaxis. Continue patient on Lovenox 30 mg subcutaneously every 24 hours. 11. GI prophylaxis. Continue Protonix 40 mg once every day. 12. Increase activity . Objective - Vital Signs Vital signs: Vital Signs Temp 97.8 F 03/21/23 03:12 Pulse 74 03/21/23 09:25 Resp 16 03/21/23 08:50 BP 159/76 03/21/23 08:50 Pulse Ox 95 03/21/23 09:07 FiO2 Intake & Output 03/20/23 03/21/23 03/21/23 18:59 06:59 18:59 Intake Total 10 225 Output Total 1200 300 Balance -1190 -75 Weight 109.316 kg Intake: IV 10 Invasive Line 1 10 Oral 225 Output: Urine 1200 300 Other: Voiding Method Toilet Toilet - Labs CBC & Chem 7: 03/21/23 07:26 03/22/23 09:13 Labs: Abnormal Lab Results - Last 24 Hours (Table) 03/20/23 03/20/23 03/20/23 Range/Units 07:27 07:27 07:27 WBC (3.8-10.6) k/uL RBC 3.31 L (4.10-5.20) X 10*6/uL Hgb 8.7 L (12.0-15.0) g/dL Hct 27.9 L (37.2-46.3) % MCH 26.3 L (27.0-32.0) pg MCHC 31.2 L (32.0-37.0) g/dL RDW 15.3 H (11.5-14.5) % Neutrophils # (1.3-7.7) k/uL Eosinophils # 0 L (0.04-0.35) X 10*3/uL Sodium 133 L (137-145) mmol/L BUN 55 H (7-17) mg/dL Creatinine 1.54 H (0.52-1.04) mg/dL Glucose 151 H (74-99) mg/dL POC Glucose (mg/dL) (70-110) mg/dL Hemoglobin A1c 11.9 H (<=6.0) % Total Protein (6.3-8.2) g/dL Albumin (3.5-5.0) g/dL 03/20/23 03/20/23 03/20/23 Range/Units 12:29 16:21 20:08 WBC (3.8-10.6) k/uL RBC (4.10-5.20) X 10*6/uL Hgb (12.0-15.0) g/dL Hct (37.2-46.3) % MCH (27.0-32.0) pg MCHC (32.0-37.0) g/dL RDW (11.5-14.5) % Neutrophils # (1.3-7.7) k/uL Eosinophils # (0.04-0.35) X 10*3/uL Sodium (137-145) mmol/L BUN (7-17) mg/dL Creatinine (0.52-1.04) mg/dL Glucose (74-99) mg/dL POC Glucose (mg/dL) 231 H 235 H 171 H (70-110) mg/dL Hemoglobin A1c (<=6.0) % Total Protein (6.3-8.2) g/dL Albumin (3.5-5.0) g/dL 03/21/23 03/21/23 03/21/23 Range/Units 05:51 07:23 07:26 WBC (3.8-10.6) k/uL RBC (4.10-5.20) X 10*6/uL Hgb (12.0-15.0) g/dL Hct (37.2-46.3) % MCH (27.0-32.0) pg MCHC (32.0-37.0) g/dL RDW (11.5-14.5) % Neutrophils # (1.3-7.7) k/uL Eosinophils # (0.04-0.35) X 10*3/uL Sodium 133 L (137-145) mmol/L BUN 66 H (7-17) mg/dL Creatinine 1.77 H (0.52-1.04) mg/dL Glucose 187 H (74-99) mg/dL POC Glucose (mg/dL) 265 H 215 H (70-110) mg/dL Hemoglobin A1c (<=6.0) % Total Protein 6.1 L (6.3-8.2) g/dL Albumin 3.4 L (3.5-5.0) g/dL 03/21/23 03/21/23 Range/Units 07:26 08:18 WBC 13.9 H (3.8-10.6) k/uL RBC 3.31 L (4.10-5.20) X 10*6/uL Hgb 8.9 L (12.0-15.0) g/dL Hct 28.3 L (37.2-46.3) % MCH (27.0-32.0) pg MCHC (32.0-37.0) g/dL RDW (11.5-14.5) % Neutrophils # 12.6 H (1.3-7.7) k/uL Eosinophils # (0.04-0.35) X 10*3/uL Sodium (137-145) mmol/L BUN (7-17) mg/dL Creatinine (0.52-1.04) mg/dL Glucose (74-99) mg/dL POC Glucose (mg/dL) 183 H (70-110) mg/dL Hemoglobin A1c (<=6.0) % Total Protein (6.3-8.2) g/dL Albumin (3.5-5.0) g/dL Microbiology - Last 24 Hours (Table) 03/19/23 14:13 Blood Culture - Preliminary Blood
--- NOTE | 2023-03-23 15:26 | P.PN ---
Subjective Progress Note Date: 03/22/23 HISTORY OF PRESENT ILLNESS: This is a 67-year-old female with a previous medical history signif icant for hypertension and hypertensive cardiovascular disease, hyperlipidemia, diabetes mellitus type 2 with hyperglycemia diabetic polyneuropathy, allergic rhinitis, vitamin D deficiency, degenerative disc disease of the lumbar spine status post discectomy back in August 2018, coronary artery disease status post left heart catheterization back in 07/15/2018 that showed mild disease in the LAD, moderate mitral regurgitation as well as mild aortic insufficiency has been under the care of Dr. Gordon, patient developed to have a significant RSV infection back on March 17, she came to the emergency department at [facility] and she was discharged home with conservative management and supp ortive care, patient became quite short of breath, with increased coughing and increased phlegm production, she ended up going to the emergency department at [facility], she was quite wheezy, she did receive Solu-Medrol 125 mg IV push, nebulized treatment [id number], without any improvement, she was placed on oxygen, and she was admitted to the hospital for evaluation, her chest x-ray initially showed pulmonary vascular congestion with cardiomegaly, patient could not go for CT angiography of the chest that was negative for pulmonary embolism but did show bilateral patchy infiltrate in both lungs suggestive of atypical pneumonia versus atelectasis, patient anyway was started on IV antibiotic in the form of Levaquin 750 mg IV piggyback every 4 8 hours, and Zosyn 3.375 g piggyback every 8 hours, she was kept on Solu-Medrol 60 mg IV push every 6 hours, pulmonary consultation as well as cardiology consultation was obtained, patient did present with significant edema in both lower extremities she was placed on Lasix 60 mg IV push every 12 hours as well, echocardiogram was obtaine d, cardiology consultation was obtained as well. 03/20: Patient sitting up in bed she continues to be somewhat short of breath, she is better than yesterday, she is diuresing very well, she denies any chest pain at this time she continues to have some coughing, minimal phlegm production, she has no pleurisy, CT angiography of the chest is negative for pulmonary embolism, her her creatinine is up to 1.5, her BUN is 55, monitor the patient very closely, recheck her electrolytes tomorrow morning, her blood glucose level in the morning is down to 178, patient had an echocardiogram the results still pending at the time of dictation, she was seen in consultation by pulmonary medicine and cardiology, 03/21: Echocardiogram reveals EF of 50 to 55% with mild aortic stenosis, unchanged from previous, the results have been reviewed with the patient, patient is feeling a bit better, she continues to have some coughing, minimal phlegm production, she continues to have some auditory wheezes, she continues to have swelling in both lower extremities, cardiology decrease Lasix to 60 mg IV push every 24 hours, we will continue to monitor input and output and daily weight, 03/22: Patient is sitting up in bed she is feeling a lot better today than she was yesterday, she continues to have some swelling both lower extremities she was taken off Lasix due to her elevated BUN and creatinine, she is currently on Solu-Medrol 40 mg IV push every 8 hours, will decrease to every 12 hours, she will be switched to oral prednisone tomorrow morning, hopefully she will be able to be discharged home tomorrow morning, patient was instructed by using the ELLEN hose knee-high close toes as well, all day long and taking them off at night, reviewed the results of the echocardiogram with her, she has been cleared by cardiology as well as by pulmonary medicine to be discharged home hopefully tomorrow morning. REVIEW OF SYSTEMS: Constitutional: No documented fever, no chills, no night sweats. No weight change. No weakness, fatigue or lethargy. No daytime sleepiness. EENT: No headache. No blurred vision or double vision, no loss of vision. No loss of Hearing, no ringing in the ears, no dizziness. No nasal drainage or congestion. No epistaxis. No sore throat. Lungs: positive for shortness of breath, positive for cough, positive for sputum production. positive for wheezing. Reports dyspnea with activity. Cardiovascular: No chest pain, positive for lower extremity edema. No palpitations. No paroxysmal nocturnal dyspnea. positive for orthopnea. No lightheadedness or dizziness. No syncopal episodes. Abdominal: Reports abdominal pain. No nausea, vomiting. positive for diarrhea. No constipation. No bloody or tarry stools reports loss of appetite. Genitourinary: No dysuria, increased frequency, urgency. No urinary retention. Musculoskeletal: No myalgias. No muscle weakness, no gait dysfunction, no frequent falls. positive for back pain. No neck pain. Integumentary: No wounds, no lesions. No rash or pruritus. No unusual bruising. No change in hair or nails. Neurologic: No aphasia. No facial droop. No change in mentation. No head injury. No headache. No paralysis. No paresthesia. Psychiatric: No depression. No anxiety. No mood swings. Endocrine: No abnormal blood sugars. No weight change. PHYSICAL EXAMINATION: General: 67-year-old female sitting up in bed in minimal respiratory distress HEENT: Head is atraumatic, normocephalic, pupils were equal round reactive to light and recommendation, extraocular muscle movement were intact, sclera nonict beverly, conjunctivae were pale, mucous membranes of the mouth are somewhat dry. Neck: Supple, no JVP, normal carotid upstroke bilaterally, no lymphadenopathy. Chest: Decreased breath sounds at the bases, few rhonchi, moderate expiratory wheezes, no chest wall tenderness, no intercostal retractions. Heart: First heart sound is normal, second heart sounds normal there is systolic ejection murmur 2/6 located in the right second intercostal space radiating to the base of the neck. Abdomen: Soft, nontender, nondistended, positive bowel sounds. Extremities: There is +2 edema no calf tenderness DP +2 bilaterally. Neurologic examination: Patient is awake alert and oriented x3, cranial nerves II-12 appear grossly intact, muscle power were 5 out of 5 in upper extremities and 5 out of 5 in bilateral lower extremities, deep tendon reflexes normal bilaterally. ASSESSMENT AND PLAN: 1. Acute hypoxemic respiratory failure due to acute exacerbation of bronchial asthma with bilateral community-acquired pneumonia. Continue patient on Zithromax 500 mg IV piggyback every 24 hours, continue ceftriaxone 1 g IV piggyback daily l, continue oxygen support, continue Solu-Medrol 40 mg IV every 12 hours switch to oral prednisone tomorrow morning., continue with nebulized treatment DuoNeb 3 mL nebulization 4 times every day. 2. Acute diastolic heart failure in a patient with a prior history of moderate mitral regurgitation mild aortic regurgitation and mild aortic stenosis. Patient was taken off Lasix due to elevated BUN/creatinine. 3. Acute kidney injury likely due to vasomotor nephropathy as well as diuresis. Monitor the patient input and output and daily weight, monitor the patient electrolytes in the next 24 hours, discontinue Lasix 4. Coronary artery disease status post left heart catheterization back in July 15, 2018 showed mild disease of LAD. Continue patient on aspirin 81 mg once every day, atorvastatin 80 mg once a day, monitor lipid panel, keep LDL 55-70. 5. Hypertension and hypertensive cardiovascular disease. Continue patient on amlodipine 10 mg orally once every day, patient is allergic to beta-blockers as well as MARISSA and ARB's. 6. Mixed hyperlipidemia. Continue patient on atorvastatin 80 mg once every day, monitor lipid panel, keep LDL 55-70. 7. Diabetes mellitus type 2 with hyperglycemia and diabetic polyneuropathy. Continue patient on Levemir 55 units at bedtime along with NovoLog 28 units before breakfast and lunch and 30 units before bedtime along with a sliding scale insulin. 8. Glaucoma. Continue current eyedrops. 9. Diabetic polyneuropathy. Continue duloxetine 120 mg orally at bedtime. 10. DVT prophylaxis. Continue patient on Lovenox 30 mg subcutaneously every 24 hours. 11. GI prophylaxis. Continue Protonix 40 mg once every day. 12. Increase activity . 13. Home tomorrow morning. Objective - Vital Signs Vital signs: Vital Signs Temp 97.4 F L 03/21/23 20:48 Pulse 88 03/22/23 12:55 Resp 18 03/22/23 12:55 BP 135/78 03/22/23 12:00 Pulse Ox 98 03/22/23 12:00 FiO2 Intake & Output 03/21/23 03/22/23 03/22/23 18:59 06:59 18:59 Intake Total 715 120 350 Output Total 1000 500 Balance -285 -380 350 Weight 109.316 kg 112.1 kg Intake: Oral 715 120 350 Output: Urine 1000 500 Other: Voiding Method Toilet - Labs CBC & Chem 7: 03/21/23 07:26 03/22/23 09:13 Labs: Abnormal Lab Results - Last 24 Hours (Table) 03/21/23 03/22/23 03/22/23 Range/Units 16:30 07:19 09:13 Sodium 136 L (137-145) mmol/L BUN 66 H (7-17) mg/dL Creatinine 1.36 H (0.52-1.04) mg/dL Glucose 183 H (74-99) mg/dL POC Glucose (mg/dL) 112 H 249 H (70-110) mg/dL 03/22/23 Range/Units 11:27 Sodium (137-145) mmol/L BUN (7-17) mg/dL Creatinine (0.52-1.04) mg/dL Glucose (74-99) mg/dL POC Glucose (mg/dL) 198 H (70-110) mg/dL Microbiology - Last 24 Hours (Table) 03/19/23 14:13 Blood Culture - Preliminary Blood
--- NOTE | 2023-03-23 15:28 | P.DS ---
Providers Date of admission: 03/19/23 18:42 Expected date of discharge: 03/23/23 Attending physician: Liang Crowley Consults: 03/19/23 18:36 Consult Physician Urgent Consulting Provider: Liberty Whittaker Consult Reason/Comments: Bronchospasms, RSV Do you want consulting provider notified?: Yes 03/19/23 18:40 Consult Physician Routine Consulting Provider: Liberty Whittaker Consult Reason/Comments: RSV/Bronchospasm Do you want consulting provider notified?: Yes 03/19/23 19:26 Consult Physician Routine Consulting Provider: Stefan Santoro Consult Reason/Comments: CHF Do you want consulting provider notified?: Yes Primary care physician: Liang Crowley Hospital Course: HISTORY OF PRESENT ILLNESS: This is a 67-year-old female with a previous medical history significant for hypertension and hypertensive cardiovascular disease, hyperlipidemia, diabetes mellitus type 2 with hyperglycemia diabetic polyneuropathy, allergic rhinitis, vitamin D deficiency, degenerative disc dise ase of the lumbar spine status post discectomy back in August 2018, coronary artery disease status post left heart catheterization back in 07/15/2018 that showed mild disease in the LAD, moderate mitral regurgitation as well as mild aortic insufficiency has been under the care of Dr. Gordon, patient developed to have a significant RSV infection back on March 17, she came to the emergency department at [facility] and she was discharged home with conservative management and supportive care, patient became quite short of breath, with increased coughing and increased phlegm production, she ended up going to the emergency department at [facility], she was quite wheezy, she did receive Solu-Medrol 125 mg IV push, nebulized treatment [id number], without any improvement, she was placed on oxygen, and she was admitted to the hospital for evaluation, her chest x-ray initially showed pulmonary vascular congestion with cardiomegaly, patient could not go for CT angiography of the chest that was negative for pulmonary embolism but did show bilateral patchy infiltrate in both lungs suggestive of atypical pneumonia versus atelectasis, patient anyway was started on IV antibiotic in the form of Levaquin 750 mg IV piggyback every 4 8 hours, and Zosyn 3.375 g piggyback every 8 hours, she was kept on Solu-Medrol 60 mg IV push every 6 hours, pulmonary consultation as well as cardiology consultation was obtained, patient did present with significant edema in both lower extremities she was placed on Lasix 60 mg IV push every 12 hours as well, echocardiogram was obtained, cardiology consultation was obtained as well. 03/20: Patient sitting up in bed she continues to be somewhat short of breath, she is better than yesterday, she is diuresing very well, she denies any chest pain at this time she continues to have some coughing, minimal phlegm production, she has no pleurisy, CT angiography of the chest is negative for pulmonary embolism, her her creatinine is up to 1.5, her BUN is 55, monitor the patient very closely, recheck her electrolytes tomorrow morning, her blood glucose level in the morning is down to 178, patient had an echocardiogram the results still pending at the time of dictation, she was seen in consultation by pulmonary medicine and cardiology, 03/21: Echocardiogram reveals EF of 50 to 55% with mild aortic stenosis, unchanged from previous, the results have been reviewed with the patient, patient is feeling a bit better, she continues to have some coughing, minimal phlegm production, she continues to have some auditory wheezes, she continues to have swelling in both lower extremities, cardiology decrease Lasix to 60 mg IV push every 24 hours, we will continue to monitor input and output and daily weight, 03/22: Patient is sitting up in bed she is feeling a lot better today than she was yesterday, she continues to have some swelling both lower extremities she was taken off Lasix due to her elevated BUN and creatinine, she is currently on Solu-Medrol 40 mg IV push every 8 hours, will decrease to every 12 hours, she will be switched to oral prednisone tomorrow morning, hopefully she will be able to be discharged home tomorrow morning, patient was instructed by using the ELLEN hose knee-high close toes as well, all day long and taking them off at night, reviewed the results of the echocardiogram with her, she has been cleared by cardiology as well as by pulmonary medicine to be discharged home hopefully tomorrow morning. Discharge diagnoses: 1. Acute hypoxemic respiratory failure due to acute exacerbation of bronchial asthma with bilateral community-acquired pneumonia. 2. Acute diastolic heart failure in a patient with a prior history of moderate mitral regurgitation mild aortic regurgitation and mild aortic stenosis. 3. Acute kidney injury likely due to vasomotor nephropathy as well as diuresis. 4. Coronary artery disease status post left heart catheterization back in July 15, 2018 showed mild disease of LAD. 5. Hypertension and hypertensive cardiovascular disease. 6. Mixed hyperlipidemia. 7. Diabetes mellitus type 2 with hyperglycemia and diabetic polyneuropathy. 8. Glaucoma. 9. Diabetic polyneuropathy. Patient Condition at Discharge: Fair Plan - Discharge Summary Discharge Rx Participant: Yes New Discharge Prescriptions: New cefUROXime axetiL [Ceftin] 500 mg PO BID 5 Days #10 tab predniSONE 0 mg PO DIRECTED #30 tab hydrALAZINE HCL [Apresoline] 50 mg PO TID #90 tab Fluticasone Nasal [place] [Flonase Nasal Barry] 1 spray EA NOSTRIL BID #1 dispenser Continue Latanoprost Ophth [Xalatan 0.005%] 1 drop BOTH EYES HS DULoxetine HCL [Cymbalta] 120 mg PO HS Aspirin 81 mg PO DAILY Albuterol Inhaler [Ventolin Hfa Inhaler] 1 - 2 puff INHALATION RT-Q6H PRN PRN Reason: Shortness Of Breath Montelukast [Singulair] 10 mg PO HS Insulin Glargine,Hum.rec.anlog [Basaglar Kwikpen U-100] 55 unit SQ HS Insulin Aspart [NovoLOG Flexpen] 30 units SQ W/SUPPER Insulin Aspart [NovoLOG Flexpen] 28 units SQ W/LUNCH Insulin Aspart [NovoLOG Flexpen] 28 units SQ W/BRKFST Dorzolamide HCl/Pf [Dorzolamide 2% Eye Drop] 1 drop BOTH EYES BID Brimonidine Tartrate [Alphagan P 0.2% Ophth Soln] 1 drops BOTH EYES BID Insulin Aspart [NovoLOG Flexpen] See Protocol SQ AC-TID PRN PRN Reason: Blood Sugar - High amLODIPine [Norvasc] 10 mg PO HS Rosuvastatin Calcium [Crestor] 40 mg PO HS Albuterol Nebulized [Ventolin Nebulized] 2.5 mg INHALATION RT-Q6H PRN PRN Reason: Shortness Of Breath Magnesium Oxide [Magox 400] 400 mg PO DAILY PRN PRN Reason: Constipation Vitamin B Complex 1 cap PO DAILY Cholecalciferol [Vitamin D3 (25 Mcg = 1000 Iu)] 25 mcg PO DAILY Ascorbic Acid [Vitamin C] 1,000 mg PO DAILY Discharge Medication List Aspirin 81 mg PO DAILY 01/07/14 [History] DULoxetine HCL [Cymbalta] 120 mg PO HS 01/07/14 [History] Latanoprost Ophth [Xalatan 0.005%] 1 drop BOTH EYES HS 01/07/14 [History] Albuterol Inhaler [Ventolin Hfa Inhaler] 1 - 2 puff INHALATION RT-Q6H PRN 07/18/17 [History] Insulin Aspart [NovoLOG Flexpen] 28 units SQ W/BRKFST 06/11/18 [History] Insulin Aspart [NovoLOG Flexpen] 28 units SQ W/LUNCH 06/11/18 [History] Insulin Aspart [NovoLOG Flexpen] 30 units SQ W/SUPPER 06/11/18 [History] Insulin Glargine,Hum.rec.anlog [Basaglar Kwikpen U-100] 55 unit SQ HS 06/11/18 [History] Montelukast [Singulair] 10 mg PO HS 06/11/18 [History] Albuterol Nebulized [Ventolin Nebulized] 2.5 mg INHALATION RT-Q6H PRN 03/19/23 [History] Ascorbic Acid [Vitamin C] 1,000 mg PO DAILY 03/19/23 [History] Brimonidine Tartrate [Alphagan P 0.2% Ophth Soln] 1 drops BOTH EYES BID 03/19/23 [History] Cholecalciferol [Vitamin D3 (25 Mcg = 1000 Iu)] 25 mcg PO DAILY 03/19/23 [History] Dorzolamide HCl/Pf [Dorzolamide 2% Eye Drop] 1 drop BOTH EYES BID 03/19/23 [History] Insulin Aspart [NovoLOG Flexpen] See Protocol SQ AC-TID PRN 03/19/23 [History] Magnesium Oxide [Magox 400] 400 mg PO DAILY PRN 03/19/23 [History] Rosuvastatin Calcium [Crestor] 40 mg PO HS 03/19/23 [History] Vitamin B Complex 1 cap PO DAILY 03/19/23 [History] amLODIPine [Norvasc] 10 mg PO HS 03/19/23 [History] Fluticasone Nasal Barry [Flonase Nasal Barry] 1 spray EA NOSTRIL BID #1 dispenser 03/23/23 [Rx] cefUROXime axetiL [Ceftin] 500 mg PO BID 5 Days #10 tab 03/23/23 [Rx] hydrALAZINE HCL [Apresoline] 50 mg PO TID #90 tab 03/23/23 [Rx] predniSONE 0 mg PO DIRECTED #30 tab 03/23/23 [Rx] Follow up Appointment(s)/Referral(s): Liberty Whittaker MD [STAFF PHYSICIAN] - 04/05/23 2:00 pm Liang Crowley MD [Primary Care Provider] - 03/29/23 1:00 pm Patient Instructions/Handouts: Respiratory Syncytial Virus (DC) Discharge Disposition: HOME SELF-CARE
== END 2023-03-23 13:18 | disposition home or self-care (01) | DRG 193 ==
LOC: EC 14:05 → 3SCARD 18:42
PROVIDERS: ADMIT Internal Medicine; ATTEND Internal Medicine
DX: J18.9 Pneumonia, unspecified organism (principal); I50.31 Acute diastolic (congestive) heart failure; J96.01 Acute respiratory failure with hypoxia; N17.0 Acute kidney failure with tubular necrosis; J44.1 Chronic obstructive pulmonary disease with (acute) exacerbation; J45.901 Unspecified asthma with (acute) exacerbation; J44.0 Chronic obstructive pulmonary disease with (acute) lower respiratory infection; J21.0 Acute bronchiolitis due to respiratory syncytial virus; Z68.42 Body mass index [BMI] 45.0-49.9, adult; N39.0 Urinary tract infection, site not specified; R60.0 Localized edema; E11.42 Type 2 diabetes mellitus with diabetic polyneuropathy; I11.0 Hypertensive heart disease with heart failure; E66.01 Morbid (severe) obesity due to excess calories; D64.9 Anemia, unspecified; E78.2 Mixed hyperlipidemia; H40.9 Unspecified glaucoma; E55.9 Vitamin D deficiency, unspecified; I08.0 Rheumatic disorders of both mitral and aortic valves; R79.89 Other specified abnormal findings of blood chemistry; I25.10 Atherosclerotic heart disease of native coronary artery without angina pectoris; J30.9 Allergic rhinitis, unspecified; G89.29 Other chronic pain; M47.896 Other spondylosis, lumbar region; I49.3 Ventricular premature depolarization; M81.0 Age-related osteoporosis without current pathological fracture; Z79.4 Long term (current) use of insulin; Z79.51 Long term (current) use of inhaled steroids; Z79.82 Long term (current) use of aspirin; Z88.8 Allergy status to other drugs, medicaments and biological substances; Z90.710 Acquired absence of both cervix and uterus; Z79.899 Other long term (current) drug therapy; Z82.49 Family history of ischemic heart disease and other diseases of the circulatory system; E11.21 Type 2 diabetes mellitus with diabetic nephropathy; Z87.01 Personal history of pneumonia (recurrent); Z90.49 Acquired absence of other specified parts of digestive tract; Z87.19 Personal history of other diseases of the digestive system
CPT/HCPCS: 36415; 71045; 71046; 71275; 80048; 80053; 83036; 83605; 83735; 83880; 84145; 84484; 85025; 85379; 85610; 85730; 87040; 93005; 93306; 94640; 94760; 96365; 96366; 96367; 96372; 96375; 96376; 99285

== ENCOUNTER 2023-04-28 14:02 | Emergency (ER) | payer MEDICARE, OTHER ==
[2023-04-28 14:33] VITALS: RESP 18; TEMP 97.9
--- NOTE | 2023-04-28 14:35 | ED ---
General Adult HPI - General Chief complaint: Back Pain/Injury Stated complaint: fall Time Seen by Provider: 04/28/23 14:09 Source: patient, EMS, RN notes reviewed Mode of arrival: EMS Limitations: no limitations - History of Present Illness Initial comments: 67-year-old female presents to the emergency department for evaluation of right knee pain following a fall. She states that around 2 AM this morning she was in the bathroom when she slipped on a bathroom rug causing her to fall. She states that she fell mostly on her right side. She states that she hit her knee and hip but she is unsure what she hit it on. She states that she has not been able to ambulate since the fall. She had to utilize the safety bars in her bathroom to help her up. She is also reporting low back pain. She does have chronic low back pain but states that it is worsening as well. She denies radiation of the pain. She is incontinent at baseline, has had no changes. She does not believe that she hit her head. She did not lose consciousness, is not on blood thinners. Denies headache, nausea, vomiting. - Related Data Home Medications Medication Instructions Recorded Confirmed Aspirin 81 mg PO DAILY 01/07/14 03/19/23 DULoxetine HCL [Cymbalta] 120 mg PO HS 01/07/14 03/19/23 Latanoprost Ophth [Xalatan 0.005%] 1 drop BOTH EYES HS 01/07/14 03/19/23 Albuterol Inhaler [Ventolin Hfa 1 - 2 puff INHALATION RT-Q6H PRN 07/18/17 03/19/23 Inhaler] Insulin Aspart [NovoLOG Flexpen] 28 units SQ W/BRKFST 06/11/18 03/19/23 Insulin Aspart [NovoLOG Flexpen] 28 units SQ W/LUNCH 06/11/18 03/19/23 Insulin Aspart [NovoLOG Flexpen] 30 units SQ W/SUPPER 06/11/18 03/19/23 Insulin Glargine,Hum.rec.anlog 55 unit SQ HS 06/11/18 03/19/23 [Basaglar Kwikpen U-100] Montelukast [Singulair] 10 mg PO HS 06/11/18 03/19/23 Albuterol Nebulized [Ventolin 2.5 mg INHALATION RT-Q6H PRN 03/19/23 03/19/23 Nebulized] Ascorbic Acid [Vitamin C] 1,000 mg PO DAILY 03/19/23 03/19/23 Brimonidine Tartrate [Alphagan P 1 drops BOTH EYES BID 03/19/23 03/19/23 0.2% Ophth Soln] Cholecalciferol [Vitamin D3 (25 25 mcg PO DAILY 03/19/23 03/19/23 Mcg = 1000 Iu)] Dorzolamide HCl/Pf [Dorzolamide 2% 1 drop BOTH EYES BID 03/19/23 03/19/23 Eye Drop] Insulin Aspart [NovoLOG Flexpen] See Protocol SQ AC-TID PRN 03/19/23 03/19/23 Magnesium Oxide [Magox 400] 400 mg PO DAILY PRN 03/19/23 03/19/23 Rosuvastatin Calcium [Crestor] 40 mg PO HS 03/19/23 03/19/23 Vitamin B Complex 1 cap PO DAILY 03/19/23 03/19/23 amLODIPine [Norvasc] 10 mg PO HS 03/19/23 03/19/23 Previous Rx's Medication Instructions Recorded Fluticasone Nasal [place] [Flonase 1 spray EA NOSTRIL BID #1 dispenser 03/23/23 Nasal [place]] cefUROXime axetiL [Ceftin] 500 mg PO BID 5 Days #10 tab 03/23/23 hydrALAZINE HCL [Apresoline] 50 mg PO TID #90 tab 03/23/23 predniSONE 0 mg PO DIRECTED #30 tab 03/23/23 Allergies Allergy/AdvReac Type Severity Reaction Status Date / Time ezetimibe [From Zetia] Allergy Diarrhea Verified 04/28/23 14:09 metformin Allergy Nausea & Verified 04/28/23 14:09 Vomiting metoprolol Allergy Cough Verified 04/28/23 14:09 Sulfa (Sulfonamide Allergy Rash/Hives Verified 04/28/23 14:09 Antibiotics) Beta-Blockers AdvReac coughing Verified 04/28/23 14:09 (Beta-Adrenergic Bloc exenatide [From Byetta] AdvReac Nausea & Verified 04/28/23 14:09 Vomiting liraglutide [From Victoza] AdvReac Nausea & Verified 04/28/23 14:09 Vomiting pioglitazone [From Actos] AdvReac weight gain Verified 04/28/23 14:09 tape Allergy Rash/Hives Uncoded 04/28/23 14:09 Review of Systems ROS Statement: Those systems with pertinent positive or pertinent negative responses have been documented in the HPI. ROS Other: All systems not noted in ROS Statement are negative. Past Medical History Past Medical History: Asthma, Diabetes Mellitus, GERD/Reflux, Hyperlipidemia, Hypertension, Osteoarthritis (OA), Pneumonia Additional Past Medical History / Comment(s): MIGRAINES, spinal stenosis, heart murmer, hx stool incontinence, osteoporosis, on rx for UTI, has marita sensor on rt arm History of Any Multi-Drug Resistant Organisms: ESBL Date of last positivie culture/infection: 03/04/15 MDRO Source:: [place]-ESBL E.coli Past Surgical History: Back Surgery, Section, Cholecystectomy, Hernia Repair, Hysterectomy Additional Past Surgical History / Comment(s): sinus surgery/deviated septum, D&C's, Past Anesthesia/Blood Transfusion Reactions: Family History of Problems w/ Anesthesia Additional Past Anesthesia/Blood Transfusion Reaction / Comment(s): mother -PONV Past Psychological History: No Psychological Hx Reported Smoking Status: Never smoker Past Alcohol Use History: None Reported Past Drug Use History: None Reported - Past Family History Mother History Unknown: Yes Family Medical History: Cancer General Exam Limitations: no limitations General appearance: alert, in no apparent distress Head exam: Present: atraumatic, normocephalic, normal inspection Eye exam: Present: normal appearance, PERRL, EOMI. Absent: scleral icterus, conjunctival injection, periorbital swelling ENT exam: Present: normal exam, mucous membranes moist Neck exam: Present: normal inspection, full ROM. Absent: tenderness, meningismus, lymphadenopathy Respiratory exam: Present: normal lung sounds bilaterally. Absent: respiratory distress, wheezes, rales, rhonchi, stridor Cardiovascular Exam: Present: regular rate, normal rhythm, normal heart sounds. Absent: systolic murmur, diastolic murmur, rubs, gallop, clicks GI/Abdominal exam: Present: soft. Absent: distended, tenderness, guarding, rebound, rigid Extremities exam: Present: tenderness, normal capillary refill, other (DP and PT pulses 2+). Absent: full ROM Back exam: Present: normal inspection, full ROM Neurological exam: Present: alert, oriented X3, CN II-XII intact Psychiatric exam: Present: normal affect, normal mood Skin exam: Present: warm, dry, intact, normal color. Absent: rash Course Vital Signs 04/28/23 04/28/23 14:04 18:04 Temperature 97.9 F Pulse Rate 83 80 Respiratory 18 18 Rate Blood Pressure 171/83 171/84 O2 Sat by Pulse 97 94 L Oximetry Medical Decision Making - Medical Decision Making Was pt. sent in by a medical professional or institution (, PA, ELECTRICIAN APPRENTICE [employer]SE, urgent care, hospital, or shelter...) When possible be specific @ -No Did you speak to anyone other than the patient for history (EMS, parent, family, police, friend...)? What history was obtained from this source @ -No Did you review nursing and triage notes (agree or disagree)? Why? @ -I reviewed and agree with nursing and triage notes Were old charts reviewed (outside hosp., previous admission, EMS record, old EKG, old radiological studies, urgent care reports/EKG's, shelter records)? Report findings @ -No old charts were reviewed Differential Diagnosis (chest pain, altered mental status, abdominal pain women, abdominal pain men, vaginal bleeding, weakness, fever, dyspnea, syncope, headache, dizziness, GI bleed, back pain, seizure, CVA, palpatations, mental health, musculoskeletal)? @ -Differential Musculoskeletal Muscular strain, contusion, ligament sprain, fracture, arthritis, septic arthritis, bursitis, cellulitis, muscle spasm, nerve compression, DVT, arterial occlusion, herpes zoster, electrolyte abnormality, tumor.... This is not meant to be in all inclusive list EKG interpreted by me (3pts min.). @ -None X-rays interpreted by me (1pt min.). @ -X-ray right knee shows suprapatellar fluid collection, severe osteoarthritis X-ray of the right hip and pelvis show no evidence of acute fracture or dislocation, significant arthritis X-ray of the lumbar spine shows diffuse osteopenia with multilevel facet arthropathy CT interpreted by me (1pt min.). @ -None done U/S interpreted by me (1pt. min.). @ -None done What testing was considered but not performed or refused? (CT, X-rays, U/S, labs)? Why? @ -None What meds were considered but not given or refused? Why? @ -None Did you discuss the management of the patient with other professionals (professionals i.e. , PA, [employer], lab, RT, psych nurse, social media senior associate, research instrumentation technician, teacher, assault amphibious vehicle officer, rn case mgr)? Give summary @ -No Was smoking cessation discussed for >3mins.? @ -No Was critical care preformed (if so, how long)? @ -No Were there social determinants of health that impacted care today? How? (Homelessness, low income, unemployed, alcoholism, drug addiction, transportation, low edu. Level, literacy, decrease access to med. care, long term, rehab)? @ -No Was there de-escalation of care discussed even if they declined (Discuss DNR or withdrawal of care, Hospice)? DNR status @ -No What co-morbidities impacted this encounter? (DM, HTN, Smoking, COPD, CAD, Cancer, CVA, ARF, Chemo, Hep., AIDS, mental health diagnosis, sleep apnea, morbid obesity)? @ -None Was patient admitted / discharged? Hospital course, mention meds given and route, prescriptions, significant lab abnormalities, going to OR and other pertinent info. @ -Discharge. Patient presented to the emergency department for evaluation of knee pain following a fall. X-rays obtained which show a suprapatellar bursal fluid collection, possibly representing an internal derangement of the knee with significant osteoarthritis. X-rays of the right hip and pelvis along with lumbar spine also obtained which show osteopenia but no acute fracture. Patient's distal neurovascular status intact. Patient advised on findings. Patient provided a knee immobilizer and crutches. Advised Tylenol Motrin, lidocaine patches. She is understanding agreeable with plan. Patient stable at time of discharge. Case discussed with Dr. Franco. Undiagnosed new problem with uncertain prognosis? @ -No Drug Therapy requiring intensive monitoring for toxicity (Heparin, Nitro, Insulin, Cardizem)? @ -No Were any procedures done? @ -No Diagnosis/symptom? @ -Right knee sprain Acute, or Chronic, or Acute on Chronic? @ -Acute Uncomplicated (without systemic symptoms) or Complicated (systemic symptoms)? @ -Uncomplicated Side effects of treatment? @ -No Exacerbation, Progression, or Severe Exacerbation? @ -No Poses a threat to life or bodily function? How? (Chest pain, [place], [place], pneumonia, PE, COPD, DKA, ARF, appy, cholecystitis, CVA, Diverticulitis, Homicidal, Suicidal, threat to staff... and all critical care pts) @ -No Disposition Clinical Impression: Right knee sprain Disposition: HOME SELF-CARE Condition: Stable Instructions (If sedation given, give patient instructions): Knee Sprain (ED) Additional Instructions: Please follow up with orthopedics. Return to the emergency department for new or worsening symptoms. Is patient prescribed a controlled substance at d/c from ED?: No Referrals: Liang Crowley MD [Primary Care Provider] - 1-2 days Rosa Weinstein DO [Doctor of Osteopathic Medicine] - 1-2 days
--- NOTE | 2023-04-28 16:06 | XR ---
EXAMINATION TYPE: XR knee complete RT DATE OF EXAM: 04/28/2023 COMPARISON: NONE HISTORY: Pain TECHNIQUE: Three views are submitted. FINDINGS: Diffuse osteopenia with a large suprapatellar bursal fluid collection. There is moderate to severe hy pertrophic arthropathy of the right knee with most marked changes involving the medial compartment. V ascular calcifications seen. Diffuse demineralization. IMPRESSION: 1. No acute fracture. There is a large suprapatellar bursal fluid collection which can be associated with internal derangement of the knee. 2. Severe osteoarthritis.
--- NOTE | 2023-04-28 16:13 | XR ---
EXAM TYPE: LUMBAR SPINE X RAY SERIES COMPARISON: NONE HISTORY: Pain TECHNIQUE: 4 views are submitted. FINDINGS: Alignment is anatomic. The pedicles are intact. The transverse processes are intact. There is grad e 1 anterolisthesis L2-L3. Diffuse osteopenia. Surgical clips in the right upper quadrant. Mild SI j oint arthropathy. Calcifications in the pelvis likely vascular. Multilevel facet arthropathy. Chronic appearing deformity of the sacrococcygeal junction IMPRESSION: 1. A diffuse osteopenia with multilevel facet arthropathy. No compression fractures. 2. Deformity of the sacrococcygeal junction most likely is chronic. Correlate with point tenderness.
--- NOTE | 2023-04-28 16:15 | XR ---
EXAMINATION TYPE: XR Hip RT and AP Pelvis DATE OF EXAM: 04/28/2023 COMPARISON: NONE HISTORY: Fall with right hip pain TECHNIQUE: A single AP view of the pelvis is obtained. Two views of the right hip are obtained. FINDINGS: Diffuse osteopenia. SI joint arthropathy. Vascular calcifications noted. Mild bilateral hip arthropathy. No definite acute fracture. IMPRESSION: There is no acute fracture or dislocation in the pelvis or right hip. If there is diffic ulty with weightbearing or high clinical suspicion given the degree of osteopenia then consider CT sc an.
[2023-04-28 18:22] VITALS: BP 171/84; PULSE 80
== END 2023-04-28 18:12 | disposition home or self-care (01) ==
LOC: EC 14:02
DX: S83.91XA Sprain of unspecified site of right knee, initial encounter (principal); Z88.5 Allergy status to narcotic agent; Z88.8 Allergy status to other drugs, medicaments and biological substances; Z91.048 Other nonmedicinal substance allergy status; W01.0XXA Fall on same level from slipping, tripping and stumbling without subsequent striking against object, initial encounter
CPT/HCPCS: 72100; 73502; 99284

== ENCOUNTER → 2023-05-23 | Outpatient (CLI) | payer MEDICARE, OTHER ==
--- NOTE | 2023-05-23 21:43 | US ---
EXAMINATION TYPE: US venous doppler duplex LE LT DATE OF EXAM: 05/23/2023 11:10 AM COMPARISON: NONE CLINICAL INDICATION: Female, 68 years old with history of I80.9 PHLEBITIS AND THROMBOPHLEBITIS OF UNS PEC LLE; Left leg pain and edema. Left femur fracture SIDE PERFORMED: left TECHNIQUE: The lower extremity deep venous system is examined utilizing real time linear array sonog daisha with graded compression, doppler sonography and color-flow sonography. VESSELS IMAGED: Common Femoral Vein Deep Femoral Vein Greater Saphenous Vein * Femoral Vein Popliteal Vein Small Saphenous Vein * Proximal Calf Veins (* superficial vessels) Left Leg: No evidence of DVT as visualized. Technical limitations due to patient's body habitus. Patient unable to tolerate compressions at lower femoral vein. Unable to visualized PTV's IMPRESSION: 1. Left lower extremity ultrasound negative for deep venous thrombosis. 2. There is limitation with partial or nonvisualization of portions of the exam discussed above.
== END | disposition home or self-care (01) ==
LOC: RADUSWWP 10:31
PROVIDERS: ATTEND Orthopaedic Surgery
DX: I80.9 Phlebitis and thrombophlebitis of unspecified site (principal); S72.412D Displaced unspecified condyle fracture of lower end of left femur, subsequent encounter for closed fracture with routine healing; M17.12 Unilateral primary osteoarthritis, left knee; E11.9 Type 2 diabetes mellitus without complications; Z68.41 Body mass index [BMI] 40.0-44.9, adult

== ENCOUNTER → 2024-06-04 | Outpatient (CLI) | payer MEDICARE ==
--- NOTE | 2024-06-04 08:53 | XR ---
EXAMINATION TYPE: XR chest 2V DATE OF EXAM: 06/04/2024 8:02 AM COMPARISON: 05/04/2023 CLINICAL INDICATION: Female, 69 years old with history of R09.89 OTH SYMPTOMS AND SIGNS INVOLVING THE CIRC A, shortness of breath TECHNIQUE: Frontal and lateral views FINDINGS: Heart upper limits of normal in size. Bilateral hilar prominence and peribronchial cuffing. Lateral v iew shows patchy posterior basilar opacity. No other consolidation or pleural effusion. Some strandy scar at the lateral left midlung. IMPRESSION: 1. Borderline heart size. 2. Perihilar and interstitial prominence. Consider atypical pneumonias, bronchitis, asthma, or mild p ulmonary vascular congestion. 3. In addition, there is patchy posterior basilar opacity on the lateral view that could represent at electasis or a patchy pneumonia. [facility], , 06/04/2024 8:51 AM
== END | disposition home or self-care (01) ==
LOC: RADXRMAIN 07:37
PROVIDERS: ATTEND Internal Medicine
DX: R09.89 Other specified symptoms and signs involving the circulatory and respiratory systems (principal); J84.89 Other specified interstitial pulmonary diseases
CPT/HCPCS: 71046